=== PATIENT | female | born 1945 | race Caucasian/White ===

== ENCOUNTER 2020-09-22 03:33 | Outpatient (CLI) | payer MEDICARE, OTHER, SELFPAY ==
[2020-09-22] MEDS: Albuterol HFA 18 GM 200 PUFF INH IH (16:39)
[2020-09-22] MEDS: Inhaler, Assist Device 1 EACH MC (16:39)
--- NOTE | 2020-09-24 18:43 | W.PFT ---
Date of service: 09/22/20 Time of Service: 03:02 Pulmonary Function Test Result Interpretation Spirometry: Mild obstructive airways disease with significant bronchodilator response Lung Volumes: No evidence of restriction Diffusion Capacity: Severe diffusion defect which is moderate when corrected to alveolar volume Airway Pressure: Elevated Note: Mild obstructive airways disease with significant bronchodilator response, this is associated with severe diffusion defect Clinical Correlation therefore is recommended.
== END 2020-09-22 03:34 | disposition home or self-care (01) ==
PROVIDERS: PCP Nurse Practitioner; Visit Provider Nurse Practitioner
DX: J44.9 Chronic obstructive pulmonary disease, unspecified (principal); J98.4 Other disorders of lung; Z86.711 Personal history of pulmonary embolism; Z87.891 Personal history of nicotine dependence
CPT/HCPCS: 94060; 94726; 94729

== ENCOUNTER 2020-10-14 03:51 | Outpatient (CLI) | payer MEDICARE, OTHER, SELFPAY ==
[2020-10-14 13:49] LABS: ALT 16 U/L (14-59); AST 10 U/L (15-37); Albumin 3.8 g/dL (3.4-5.0); Alkaline Phosphatase 63 U/L (46-116); Anion Gap 8.8 mmol/L (3-11); BUN 18 mg/dL (7-18); Bilirubin, Total 0.5 mg/dL (0.2-1.0); CO2 27.2 mmol/L (21.0-32.0); CREATININE 1.1 mg/dL (0.55-1.02); Calcium 10.8 mg/dL (8.5-10.1); Chloride 105 mmol/L (98-107); Estimated GFR 48.42 (mL/min/1.73m2); Glucose 102 mg/dL (74-106); Hemoglobin A1C 4.9 % (<5.7); Potassium 4.6 mmol/L (3.5-5.1); Sodium 141 mmol/L (136-145); Total Protein 7.3 g/dL (6.4-8.2)
[2020-10-14 20:46] LABS: Calculated LDL 100 mg/dL (<100); Cholesterol 199 mg/dL (<200); HDL Cholesterol 78 mg/dL (40-60); Triglyceride 105 mg/dL (<150)
== END 2020-10-14 03:52 | disposition home or self-care (01) ==
LOC: LBO 03:51
PROVIDERS: PCP Nurse Practitioner; Visit Provider Nurse Practitioner
DX: I10 Essential (primary) hypertension (principal); E78.2 Mixed hyperlipidemia; R73.09 Other abnormal glucose
CPT/HCPCS: 36415; 80053; 80061; 83036

== ENCOUNTER 2021-09-16 04:19 | Outpatient (CLI) | payer OTHER, SELFPAY ==
[2021-09-16 14:58] LABS: HCT 44.8 % (36.0-46.0); HGB 15.3 g/dL (11.2-15.7); MCH 34.2 pg (27.0-33.0); MCHC 34.2 % (32.0-36.0); MCV 100 fL (80-95); MPV 9.2 fL (8.0-11.0); Platelet Count 301 10^3/uL (130-400); RBC 4.47 10^6/uL (3.93-5.22); RDW 12.3 % (11.7-14.6); RDW-SD 45.4 fL; WBC 7.71 10^3/uL (4.4-10.8)
== END 2021-09-16 04:20 | disposition home or self-care (01) ==
LOC: LBO 04:19
PROVIDERS: PCP Nurse Practitioner; Visit Provider Nurse Practitioner
DX: I48.0 Paroxysmal atrial fibrillation; G89.4 Chronic pain syndrome; M25.511 Pain in right shoulder; M54.17 Radiculopathy, lumbosacral region
CPT/HCPCS: 36415; 85027

== ENCOUNTER → 2021-09-20 01:46 | Outpatient (CLI) | payer OTHER, SELFPAY ==
--- NOTE | 2021-09-20 07:45 | DI.MRI_ITS ---
Exam(s) MR LUMBAR SPINE WO EXAM: MR LUMBAR SPINE WO CLINICAL HISTORY: referral to pain clinic, spinal stenosis, lumbosacral rad L5, low back pain. TECHNIQUE: Multiplanar multisequence MRI of the Lumbar spine was performed. COMPARISON: CR LUMBAR SPINE COMPLETE from 08/22/2017 FINDINGS: Bones: The last intervertebral disc space is designated the L5/S1 level for the numbering purpose of this examination. The vertebral body heights are well maintained. Alignment is satisfactory. There are endplate degenerative signal changes present. There also areas of hyperintense signal seen on ernesto th the T1 and T2 weighted images which may reflect fatty rests or hemangiomas within the vertebral ernesto dies. Cord: The conus tip ends at the T12 level. It is of normal size and signal intensity. T12-L1: No disc herniations or bulges are present. No central spinal canal or neural foraminal stenos is. L1-2: No disc herniations or bulges are present. No significant central spinal canal stenosis is seen . There is mild narrowing of the neural foramen bilaterally. L2-3: There is a diffuse disc bulge present. No significant central spinal canal stenosis is present . There is mild right and moderate left neural foraminal narrowing present. L3-4: There is a mild diffuse disc bulge. There are degenerative changes of the facets. Minimal hope rowing of the central spinal canal is noted.There is mild narrowing of the neural foramen bilaterally . L4-5: There is a mild diffuse disc bulge. There are hypertrophic changes of the facets and ligamentu m flavum. These all contribute to cause mild narrowing of the central spinal canal. No significant neural foraminal stenosis is present. L5-S1: There is a mild diffuse disc bulge. There are hypertrophic changes of the facets and ligament um flavum. There is mild narrowing of the central spinal canal present. There is mild narrowing of the neural foramen bilaterally. Soft tissues: The visualized SI joints and sacrum are well maintained. The paraspinal soft tissues ar e unremarkable. IMPRESSION: Multilevel degenerative changes in the lumbar spine resulting in central spinal canal and neural fora shantell stenosis as described above. DATA REPOSITORY:
== END ==
PROVIDERS: PCP Nurse Practitioner; Visit Provider Nurse Practitioner
DX: M54.59 Other low back pain (principal); M54.17 Radiculopathy, lumbosacral region; M48.061 Spinal stenosis, lumbar region without neurogenic claudication; G89.4 Chronic pain syndrome; M51.37 Other intervertebral disc degeneration, lumbosacral region
CPT/HCPCS: 72148

== ENCOUNTER → 2021-10-07 01:57 | Outpatient (CLI) | payer OTHER, SELFPAY ==
--- NOTE | 2021-10-07 07:45 | DI.MRI_ITS ---
Exam(s) MR LOWER JOINT RT WO EXAM: MR LOWER JOINT RT WO CLINICAL HISTORY: rt knee pain, internal derangement, m23.91,m25.361,patellar instability TECHNIQUE: Multiplanar multisequence MRI of the right knee was performed. COMPARISON: No plain films the right knee available at time this MRI interpretation FINDINGS: EFFUSION: Mild amount of increased joint fluid. No large joint effusion. No Garner cyst in the popli teal fossa. MARROW:There is no evidence of fracture, bone contusion, nor osteochondral defects.. There is a allison gn-appearing bone lesion in the metaphysis of the distal femur medial of center. This has appearance of benign enchondroma and measures approximately 1.5 cm x 1.0 cm. There is no surrounding bone june a suggest that this is an aggressive lesion. PATELLOFEMORAL COMPARTMENT: The quadriceps tendon is intact. The patellar ligament is intact. There is subcutaneous edema anterior to the but patella and patellar ligament. No organized fluid collect ion. There is moderate thinning of the retropatellar cartilage over the lateral facet. No osteochondral d efects. No degenerative subarticular cyst in the posterior patella.There is no intraosseous signal t o suggest recent patellar dislocation. There are no patellar retinacular tears. CRUCIATE LIGAMENTS: The anterior cruciate ligament is intact.The posterior cruciate ligament is intac t. MEDIAL COMPARTMENT/MEDIAL MENISCUS: There is tear of the posterior horn of the medial meniscus at and lateral to the root level. There is 2 millimeters outward extrusion of the posterior horn without g utter descent. No meniscocapsular separation.Anterior horn appears intact. Some there is some carti teja thinning over the medial condyle. No subarticular edema nor cysts nor evidence of osteochondral defect.. Tiny marginal osteophytes noted on both sides of the medial femoral condyle. MEDIAL COLLATERAL LIGAMENT: Intact LATERAL COMPARTMENT/LATERAL MENISCUS: There is no evidence of lateral meniscal tear.There are no geovanna dral defects, osteochondral defects, subarticular marrow edema, nor osteophytes evident. ILIOTIBIAL BAND: Intact LATERAL COLLATERAL LIGAMENT COMPLEX: The fibular collateral ligament is intact. The biceps femoris t endon is intact.Popliteus muscle and tendon are intact. IMPRESSION: 1. There is a tear of the posterior horn of the medial meniscus described above and there is mild ext rusion of the posterior horn. There is, however, no evidence of descent of meniscal tissue into the para tibial gutter. The anterior horn of the medial meniscus is intact. Cartilage changes over the medial condyle. No osteochondral defects. Small marginal osteophytes. No evidence of lateral menis odalys tear. 2. There is moderate thinning of the retropatellar cartilage over the lateral patellar facet. There is no abnormal intraosseous signal nor cysts within the posterior patella. No osteochondral defects at this level. 3. Cruciate and collateral ligaments are intact. 4. Small amount of increased joint fluid. No large joint effusion. DATA REPOSITORY:
== END ==
PROVIDERS: PCP Nurse Practitioner; Visit Provider Student in an Organized Health Care Education/Training Program
DX: M23.91 Unspecified internal derangement of right knee (principal); M25.361 Other instability, right knee; S83.241A Other tear of medial meniscus, current injury, right knee, initial encounter; X58.XXXA Exposure to other specified factors, initial encounter; Y99.8 Other external cause status; M25.761 Osteophyte, right knee
CPT/HCPCS: 73721

== ENCOUNTER 2021-10-07 13:59 | Emergency (ER) | payer OTHER, SELFPAY ==
[2021-10-07 14:03] VITALS: BP 164/77; PULSE 65; RESP 18; TEMP 36.6; O2SAT 95
--- OUTSIDE RECORDS SUMMARY | 2021-10-07 14:03 | XMS_ITS | Encounter Summary ---
:1945 Author Organization [facility] [place] [address] Care Team Providers Name Role Phone Eitan Nixon MD Primary Care Provider Encounter Details Date Type Department Care Team Description 12/12/2017 Telephone Ophthalmology at [facility] Aundrea Sanchez, [facility] [place] [address] Social History Tobacco Use Types Packs/Day Years Used Date Former Smoker Cigarettes Smokeless Tobacco: Never Used Comments: 2001 Alcohol Use Standard Drinks/Week Comments No 0 (1 standard drink = 0.6 oz pure alcoho l) Sex Assigned at Date Recorded Not on file documented as of this encounter Miscellaneous Notes Telephone Encounter - Iris Simmons - 12/12/2017 11:10 AM EDT Patient called and wanted you to know Zahira that she is sending you two pairs of glasses here to and she is sending them 2 day shipping, not sure when that mean they will actually arrive in the clinic but she wanted you to know so you can look out for them documented in this encounter Plan of Treatment Not on filedocumented as of this encounter Visit Diagnoses Not on filedocumented in this encounter Care Teams Shark Biologist Relationship Specialty Start Date End Date Eitan Nixon MD PCP - General Family Medicine 11/23/17 11/04/[address] [place] [address] documented as of this encounter
--- OUTSIDE RECORDS SUMMARY | 2021-10-07 14:03 | XMS_ITS | Encounter Summary ---
:1945 Author Organization [facility] [place] [address] Care Team Providers Name Role Phone Shania Mcknight BUSINESS SERVICES MANAGER Primary Care Provider Encounter Details Date Type Department Care Team Description 10/25/2016 Office Visit Ophthalmology at [facility] Cheli Sanchez, Vertical strabismus of right eye; [facility] [address] nerve palsy, [place] [address] Social History Tobacco Use Types Packs/Day Years Used Date Former Smoker Cigarettes Smokeless Tobacco: Never Used Comments: 2001 Alcohol Use Standard Drinks/Week Comments No 0 (1 standard drink = 0.6 oz pure alcoho l) Sex Assigned at Date Recorded Not on file documented as of this encounter Progress Notes Aundrea Sanchez CO - 10/25/2016 1:00 PM EDT Shannan Rowley is a 71 year old female with a 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 She is wearing prisms however Shannan does NOT have diplopia. It is important to note for future care and understanding; Fresnel prisms are worn to bring the right eye down. This improves the alignment and reduces the closing of the left eye. Plan: 1. Distance Rx Silvestre frame 8 BD Fresnel prism OD 2. Near Rx Green frame 7 BD Fresnel prism OD. Shannan will try the glasses, allowing time to get used to a 1 diopter increase at distance. She lives in [place] and would like to continue care here yearly with Dr. Herrera and myself. documented in this encounter Plan of Treatment Not on filedocumented as of this encounter Procedures Procedure Name Priority Date/Time Associated Diagnosis Comme nts SENSORIMOTOR EXAM Routine 10/25/2016 1:49 PM Vertical strabism us Results for this EDT of right eye procedure are in 4Th nerve palsy, the results unspecified section. laterality documented in this encounter Results SENSORIMOTOR EXAM [AR SPECIAL EYE EXAM] - OU- BOTH EYES (10/25/2016 1:49 PM EDT) Anatomical Region Laterality Modality Other Specimen (Source) Anatomical Location Collection Method / Collectio n Time Received Time / Laterality Volume Narrative 10/25/2016 1:49 PM EDT This result has an attachment that is no t available. See orthoptic note Yamileth Herrera OD OPHTHALMOLOGY SERVICES ORDER LASHAWN documented in this encounter Visit Diagnoses Diagnosis Vertical strabismus of right eye Hypertropia 4th nerve palsy, unspecified laterality documented in this encounter Care Teams Cvicu Nurse Relationship Specialty Start Date End Date Shania Mcknight APRN PCP - General Internal Medicine 12/28/15 11/22/17 [address] [place] [address] documented as of this encounter
--- OUTSIDE RECORDS SUMMARY | 2021-10-07 14:03 | XMS_ITS | Encounter Summary ---
:1945 Author Organization [facility] [place] [address] Care Team Providers Name Role Phone Eitan Nixon MD Primary Care Provider Encounter Details Date Type Department Care Team Description 10/24/2019 Hospital Encounter XRay at [facility] Jake Weems Right hip pain; [address] [facility] [address] Fercho MD History of total hip arthroplasty, right [facility] [id number] [address] [phone] [place] [address] Social History Tobacco Use Types Packs/Day Years Used Date Former Smoker Cigarettes Smokeless Tobacco: Never Used Comments: 2001 Alcohol Use Standard Drinks/Week Comments No 0 (1 standard drink = 0.6 oz pure alcoho l) Sex Assigned at Date Recorded Not on file documented as of this encounter Medications at Time of Discharge Medication Sig Dispensed Refills Start Date End Date pantoprazole (PROTONIX) 40 Take 40 mg by mouth 0 mg Tablet, Delayed Release daily. (E.C.)Indications: Lumbosacral radiculopathy at L5 metaxalone (SKELAXIN) 800 Take 800 mg by mouth 0 mg Tablet 3 times daily. aspirin 81 mg EC tablet Take 81 mg by mouth 0 daily. propranolol (INDERAL) 10 mg Take 10 mg by mouth 0 tablet 2 times daily. hydroCODone-acetaminophen Take 1 tablet by 0 (LORCET) 10-650 mg per mouth every 4 hours. tablet Amoxicillin 500 mg Tab 2000MG, PO, 4 tabs 0 12/22 prior to dental work documented as of this encounter Plan of Treatment Not on filedocumented as of this encounter Procedures Procedure Name Priority Date/Time Associated Diagnosis Comme nts XR PELVIS AND HIP 2 Routine 10/24/2019 1:49 PM Right hip pain Results for this VIEWS RIGHT EDT History of total hip procedu re are in arthroplasty, right the resu lts section. documented in this encounter Results XR Pelvis and Hip 2 Views Right (10/24/2019 1:49 PM EDT) Anatomical Region Laterality Modality Pelvis, Hip Right Digital Radiography Specimen (Source) Anatomical Location Collection Method / Collectio n Time Received Time / Laterality Volume Narrative 10/24/2019 3:17 PM EDT EXAMINATION: XR PELVIS AND HIP 2 VIEWS RIGHT CLINICAL HISTORY: Right Hip Pain/Right T SINGLET[place] DOS: 09/03/01 TECHNIQUE: 3 views of the pelvis and hips AP pelvis and 2 views of right hip. COMPARISON: Multiple examinations since December 21 FINDINGS: Bilateral total hip arthroplasties are p resent. The left hip is included only on one view. Right Alignment: The prosthesis is unchanged i n alignment. Is included only on the AP image. Impression Unchanged and Uncomplicated right total hip arthroplasty Thank you for letting us participate in the care of this patient. For questions regarding this report, please contact e number below. ? Procedure Note Edna Alonso MD - 10/24/2019Formatt ing of this note might be different from the original. EXAMINATION: XR PELVIS AND HIP 2 VIEWS R IGHT CLINICAL HISTORY: Right Hip Pain/Right T S[place]LET[place] DOS: 09/03/01 TECHNIQUE: 3 views of the pelvis and hips AP pelvis and 2 views of right hip. COMPARISON: Multiple examinations since December 21 FINDINGS: Bilateral total hip arthroplasties are p resent. The left hip is included only on one view. Right Alignment: The prosthesis is unchanged i n alignment. Is included only on the AP image. Impression Unchanged and Uncomplicated right total hip arthroplasty Thank you for letting us participate in the care of this patient. For questions regarding this report, please contact e number below. Jake Weems MD IMG DX ORDERABLES documented in this encounter Visit Diagnoses Diagnosis Right hip pain Pain in joint, pelvic region and thigh History of total hip arthroplasty, right documented in this encounter Care Teams Interventional Radiology Technologist Relationship Specialty Start Date End Date Eitan Nixon MD PCP - General Family Medicine 11/23/17 11/04/[address] [place] [address] documented as of this encounter
--- OUTSIDE RECORDS SUMMARY | 2021-10-07 14:03 | XMS_ITS | Encounter Summary ---
:1945 Author Organization [facility] [place] [address] Care Team Providers Name Role Phone Shania Mcknight APRN Primary Care Provider Reason for Visit Reason Comments Pain Management Consultation (Routine) - Closed Specialty Diagnoses / Procedures Referred By Contact Refer red To Contact Pain Management Diagnoses Lumbosacral radiculopathy at L5 [facility] MD [address] [place] [address] [place] [address] [place] [address] Fax: Referral ID Status Reason Start Date Expiration Date Visits V isits Requested Authorized [id number] Closed Consult, 09/27/2016 09/27/2017 1 1 Test & Treat Encounter Details Date Type Department Care Team Description 11/08/2016 Office Visit [facility] at [facility]opathy of lumbar region; Devon King MD DDD (degenerative disc disease), lumbar; [facility] Low back pain, non-specific [facility] [address] [place] [address] [place] [address] [phone] Social History Tobacco Use Types Packs/Day Years Used Date Former Smoker Cigarettes Smokeless Tobacco: Never Used Comments: 2001 Alcohol Use Standard Drinks/Week Comments No 0 (1 standard drink = 0.6 oz pure alcoho l) Sex Assigned at Date Recorded Not on file documented as of this encounter Last Filed Vital Signs Vital Sign Reading Time Taken Comments Blood Pressure 147/114 11/08/2016 1:42 PM EDT Pulse 93 11/08/2016 1:42 PM EDT Temperature - - Respiratory Rate - - Oxygen Saturation 99% 11/08/2016 1:42 PM EDT Inhaled Oxygen Concentration - - Weight 75.8 kg (167 lb) 11/08/2016 1:42 PM EDT Height 162.6 cm (5' 4) 11/08/2016 1:42 PM EDT Body Mass Index 28.67 11/08/2016 1:42 PM EDT documented in this encounter Progress Notes [facility] MD - 11/08/2016 2:00 PM EDT PAIN CLINIC CONSULTATION Date of Consultation: November 08, 2016 I am seeing Ms. Rowley at the request of Olive Jackson for my opinion and recommendations regarding low back pain with right radicular leg pain. Chief Complaint: low back pain with right radicular leg pain. HPI: Subjective Shannanjose juan Rowley is a 71 y.o. female maintained on opiate therapy for many years due to long standing low back pain pain who presents today for evaluation of low back pain with right radicular leg pain. LOCATION: Low back with radiation to the posterior right thigh into the lateral aspect of the right calf and dorsal surface of the right foot affecting the third fourth and fifth digits of the right foot. ONSET: She has experienced low back pain off and on for many years. However she noted in April [id number] when wintering in [place] she experienced acute onset of low back pain radiating into her right lower limb. She provides no inciting event or traumatic episode to explain onset of her pain. She describes bending over reaching for an object on the ground and experiencing significant pain in the intermediate fashion which has persisted since. ASSOCIATED SYMPTOMS: She reports associated symptoms of intermittent paresthesias in same distribution of the pain in the right lower limb. She reports weakness in her right leg as well since April 2016. She has noted decreased ability to ambulate due to her right leg weakness and is using crutches a s prophylaxis against falling. PAIN DESCRIPTION: She describes her pain as aching, sore, and at times burning in nature. In her ownwords, it's like a bad toothache. PRESENT: She experiences her pain daily although to varying degrees. PAIN INCREASED BY: Her pain is worse with bending twisting activities, driving for long distances, standing for long periods time, and cold damp weather changes. She describes 3 severe paroxysms in which her pain was uncontrolled. Again she reports no discernible movements are activities that coincidewith these pain flares. PAIN DECREASED BY: Interventional epidural steroid injections, and, nonsteroidal anti-inflammatories, hydrocodone-acetaminophen, and Skelaxin PAIN LEVEL: Presently: 4-5/10 At rest: At its worst: 10/10 At its best: 4/10 Average: 5/10 She is treating her pain with prior interventional procedures i.e. epidural steroid injections performed at a pain clinic in [place]. She last participated in physical therapy one month earlier. She has been participating in physical therapy consistently since July 2016 ay [facility]. She has had no prior back surgeries. She has undergone MRI imaging of the lumbar spine on 10/12/16 which showed at L4-5 degenerative disc disease with hypertrophic facet arthropathy and synovial cysts which may be causing right L4 nerve root impingement. She had EMG/NCS neurodiagnostic study on 09/30/16which was interpreted as consistent with right L5 radiculopathy. She has received terminal carman opiate therapy prior to worsening of her symptoms in April 2016 for ongoing long-standing low back pain. She currently uses hydrocodone-acetaminophen 10/325 mg every 6 hours as needed for pain 4 tabs per day. Additionally she uses tizanidine 4 mg every 8 hours as needed for muscle spasm. ACTIVITY LEVEL: Patient reports pain inhibition of function as decreasing ability to participate in leisure activity and certain activities of daily living including vacuuming, cleaning, and doing dishes. Patient reports quality of life adversely affected by daily experience pain. Treatment Goals: Maintain independence of activities of daily living Improved functional level without pain inhibition of function Decreased daily experiences pain Improve quality of life OPIOID RISK ASSESSMENT OPIOID RISK TOOL Female Male 1. Family history of Substance Abuse Alcohol [] 1 [] 3 Illegal Drugs [] 2 [] 3 Prescription Drugs [] 4 [] 4 2. Personal History of Substance Abuse Alcohol [] 3 [] 3 Illegal Drugs [] 4 [] 4 Prescription Drugs [] 5 [] 5 3. Age (chhaya box if 16-45) [] 1 [] 1 4. History of Preadolescent Sexual Abuse [] 3 [] 0 5. Psychological Disease Attention Deficit Disorder, Obsessive Compulsive D/o, Bipolar, Schizophrenia [] 2 [] 2 Depression [] 1 [] 1 TOTAL: 0 Opioid Risk Category: Low risk Total Score Risk Category: 0-3 = Low Risk 4-7 = Moderate Risk > 8 = High Risk Suicide/Homicide Risks Suicidal ideations No Suicidal plans No Homicidal ideations No Other significant history History of DUI or DWI? No History of incarceration? No History of discharge from another pain provider? No History of an inconsistent Urine Drug Screen? No Current use of a benzodiazepine? No Current use of other [employer] depressant? No Current diagnosis of Obstructive Seep Apnea? No CPAP use: No Repeated visits to acute care facilities of other care facilities seeking opioids? No Current ? No Repeated visits to urgent care facilities and/or emergency departments seeking opioids? No Evidence or risk of significant adverse events including falls or fractures? No Are you now or in past received methadone or suboxone (buprenorphine) from a clinic? No Ever participated in drug or alcohol rehabilitation program? No Share your pain medications or accept medications from family/friends? No OR & ID Prescription Drug Monitoring Program data reviewed? Yes Inconsistencies? No PAST MEDICAL HISTORY: Past Medical History: Diagnosis Date ??? Arthritis discs ??? Cardiac disease PAT ??? Cataract 09/17/2012 ??? Chronic pain ??? Hyperlipidemia 12/04/2014 ??? Neuromuscular disorder ??? Strabismus PAST SURGICAL HISTORY: Past Surgical History: Procedure Laterality Date ??? BREAST BIOPSY Right 2001 ??? PRO UNLISTED CRANIO/MAXILLOFACIAL SURG ??? PRO UNLISTED PROCEDURE, MUSCULOSKELETAL SYSTEM, GENERAL ALLERGIES: Celecoxib; Fentanyl; and Oxycodone-acetaminophen MEDICATIONS: Medications 11/08/16 1347 Medication Sig Taking? pantoprazole (PROTONIX) 40 mg Tablet, Delayed Release (E.C.) Take 40 mg by mouth daily. Yes metaxalone (SKELAXIN) 800 mg Tablet Take 800 mg by mouth 3 times daily. Yes aspirin 81 mg EC tablet Take 81 mg by mouth daily. Yes propranolol (INDERAL) 10 mg tablet Take 10 mg by mouth 2 times daily. Yes hydroCODone-acetaminophen (LORCET) 10-650 mg per tablet Take 1 tablet by mouth every 6 hours as needed. Yes Amoxicillin 500 mg Tab 2000MG, PO, 4 tabs prior to dental work Yes FAMILY HISTORY: Family History Problem Relation Age of Onset ??? Adopted: Yes ??? Family history unknown: Yes SOCIAL HISTORY: Social History Social History ??? Marital status: Single Spouse name: N/A ??? Number of children: N/A ??? Years of education: N/A Occupational History ??? Not on file. Social History Main Topics ??? Smoking status: Former Smoker Types: Cigarettes ??? Smokeless tobacco: Never Used Comment: 2002 ??? Alcohol use No ??? Drug use: No ??? Sexual activity: Not on file Other Topics Concern ??? Exercise: Patient Reported Yes ??? Abuse Or Threat: Physical, Sexual, Verbal No Social History Narrative Retired. Enjoys horses and reading. Style for [employer] standard poodle therapy dog named Roberta aggarwal 10-26-16. ROS: Review of Systems Constitutional: Positive for activity change. Negative for appetite change. Eyes: Negative for discharge and itching. Endocrine: Positive for heat intolerance. Negative for cold intolerance. Musculoskeletal: Positive for back pain and gait problem. Skin: Negative for color change and pallor. Allergic/Immunologic: Negative for environmental allergies and food allergies. Neurological: Positive for weakness (affecting the right lower limb new in onset since pain flare inJanuary 2017) and numbness. Negative for dizziness and facial asymmetry. Hematological: Negative for adenopathy. Does not bruise/bleed easily. Psychiatric/Behavioral: Negative for agitation and behavioral problems. PHYSICAL EXAM: BP (!) 147/114 Pulse 93 Ht 162.6 cm (5' 4) Wt 75.8 kg (167 lb) SpO2 99% BMI 28.67 kg/m2 Physical Exam Constitutional: She is oriented to person, place, and time. She appears well- developed and well-nourished. No distress. HENT: Head: Atraumatic. Eyes: Conjunctivae are normal. Pupils are equal, round, and reactive to light. Neck: Normal range of motion. Neck supple. Cardiovascular: Normal rate, regular rhythm and normal heart sounds. Pulmonary/Chest: Effort normal and breath sounds normal. No respiratory distress. Abdominal: Bowel sounds are normal. There is no tenderness. Neurological: She is alert and oriented to person, place, and time. She displays abnormal reflex (absent right patella relex, 1/4 left patella, trace bilateral achilles). No cranial nerve deficit. MSK: weakness on right ankle dorsiflexion 4/5 and to a lesser degree right ankle eversion 4+/5. Seated slump test positive for root tension sign on the right in the lumbar spine. Gait exam shows able to toe walk. Unable to heel walk. Able with difficulty to heal-toe walk secondary to poor balance on heal strike and stance phase of the right lower limb. RADIOLOGIC DATA: MRI lumbar spine 10/12/69 FINDINGS: Exaggerated lumbar lordosis with mild retrolisthesis of L1 with respect to L2 and L2 with respect to L3. The regional bone marrow is diffusely heterogeneous in signal. The vertebral body heights are maintained. 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 The conus is normal in signal and caliber, terminating at L1. Visualized retroperitoneal contents are unremarkable. ?? Findings at individual levels: ?? T11-T12: Small central disc extrusion with minimal cranial migration indents the ventral thecal sac appears to mildly deform the ventral conus. Right sided perineural cyst. ?? T12-L1: No canal or neural foraminal stenosis. ?? L1-L2: Retrolisthesis and posterior marginal osteophytes contribute to moderate right subarticular recess end mild to moderate right neural foraminal narrowing. No central canal narrowing ?? L2-L3: Disc bulge eccentric to the left and mild facet arthropathy. Moderate left and mild right subarticular recess narrowing. Mild to moderate right and moderate left neural foraminal narrowing. Minimal central canal narrowing. ?? L3-L4: Disc height loss with mild annular disc bulge and mild facet arthropathy contribute to mild canal narrowing. Mild to moderate bilateral neural foraminal narrowing. ?? L4-L5: Mild annular disc bulge and moderate facet arthropathy with buckling of ligamentum flavum contribute to mild to moderate central canal narrowing and moderate left and mild right subarticular recess narrowing. Mild to moderate right neural foraminal narrowing. Tiny right-sided synovial cyst within the right neural foramen may contact the exiting right L4 nerve root. Left-sided synovial cyst contributes to at least moderate left neural foraminal narrowing and possible left L4 nerve root impingement. ?? L5-S1: Minimal disc bulge and moderate facet arthropathy contribute to mild to moderate right and mild left subarticular recess narrowing. No central canal stenosis. Mild bilateral neural foraminal narrowing. Right-sided synovial cyst projects into the posterior paraspinal soft tissues. ?? IMPRESSION Multilevel degenerative change, most advanced at L4-5 where hypertrophic facet arthropathy and synovial cysts which could cause foraminal nerve root impingement. The right-sided cyst is small and may or may not be amenable to percutaneous rupture. ?? ASSESSMENT: Assessment 1. Radiculopathy of lumbar region 2. DDD (degenerative disc disease), lumbar 3. Low back pain, non-specific PLAN: Ms. Rowley is a pleasant 71 year old female who presents with sub-acute exacerbation of chronic low back pain which has recently involved a right L5 radicular pain pattern causing lateral thigh and lateral calf pain and dorsiflexion weakness in the right lower limb. She has MRI imaging which shows a potential right L4 nerve root impingement due to a combination of degenerative facet arthropathy and synovial cysyt. She has EMG/NCS evidence of right L5 radiculopathy. Her physical exam is consistent with weakness in the L4-5 myotome. I recommend she proceed with her scheduled right L4-5 and L5-S1 transforaminal epidural steroid injections performed under fluoroscopic guidance. Given her neurologic changes in her right lower limb which are concerning for axonetemis secondary to nerve root impingement, ifshe does not improve following her right L4-5 and L5-S1 transforaminal epidural steroid injection and her right lower limb weakness continues to evolve I feel it would be reasonable to pursue a surgical option. JESSICA Bowser Board Certified [employer] Developer documented in this encounter Plan of Treatment Scheduled Referrals Name Type Priority Associated Diagnoses Order S chedule Referral to Pain Outpatient Referral Routine Lumbosacral Orde red: Clinic radiculopathy at L5 09/28/19 17 documented as of this encounter Visit Diagnoses Diagnosis Radiculopathy of lumbar region Thoracic or lumbosacral neuritis or radi culitis, unspecified DDD (degenerative disc disease), lumbar Degeneration of lumbar or lumbosacral in tervertebral disc Low back pain, non-specific documented in this encounter Care Teams Enrober Tender Relationship Specialty Start Date End Date Shania Mcknight APRN PCP - General Internal Medicine 9/26/16 8/22/18 [address] [place] [address] documented as of this encounter
--- OUTSIDE RECORDS SUMMARY | 2021-10-07 14:03 | XMS_ITS | Encounter Summary ---
:1945 Author Organization [facility] [place] [address] Care Team Providers Name Role Phone Jenny Mcknightdia JAYLEN Primary Care Provider Reason for Referral Consultation (Routine) - Specialty Diagnoses / Procedures Referred By Contact Refer red To Contact Pain Management Diagnoses Intervertebral disc disorder with radiculopathy of lumbar region Request right L4-L5, L5-S1 TF CELY [facility] PA [facility] Procedures PRO INJ, FORAMEN, L/S, 1 [facility] [address] [place] [id number] [place] [address] Drive [place], [place] [phone] Phone: Fax: Referral ID Status Reason Start Date Expiration Date Visits V isits Requested Authorized [id number] Assume 10/19/2016 10/19/2017 1 1 Subset of Care Reason for Visit Reason Comments Back Pain mid back pain and low back p ain pain in buttock Consultation (Routine) - Closed Specialty Diagnoses / Procedures Referred By Contact Refer red To Contact Orthopaedics Diagnoses Lumbosacral radiculopathy at L5 Olive Jackson MD [facility] [place] [address] [place] [address] Referral ID Status Reason Start Date Expiration Date Visits V isits Requested Authorized [id number] Closed Consult, 09/27/2016 09/27/2017 1 1 Test & Treat Encounter Details Date Type Department Care Team Description 10/19/2016 Office Visit [facility] [place] ebral disc MELONIE Santana disorder with [facility] radiculop athy of lumbar [address] serjio [place], [place], [place] [id number] [phone] Social History Tobacco Use Types Packs/Day Years Used Date Former Smoker Cigarettes Smokeless Tobacco: Never Used Comments: 2001 Alcohol Use Standard Drinks/Week Comments No 0 (1 standard drink = 0.6 oz pure alcoho l) Sex Assigned at Date Recorded Not on file documented as of this encounter Progress Notes [facility] Toth PA - 10/19/2016 2:00 PM EDT SUBJECTIVE: Shannan Rowley is a 71-year-old female seen today for a chief complaint of over 6 months of back pain and right lower extremity pain. She reports the pains began around 04/2016 without specific injury/incident. The pain is generally over the midline low back, going into her right buttock, and further over the lateral thigh, at times going into the dorsal and plantar aspect of the right foot at the lateral aspect with some paresthesias involving the toes around this area as well. She otherwise denies any fixed motor loss or sensory weakness in her lower extremities. She does not really report any symptoms on the left side. She finds that symptoms ease somewhat when she is standing and walking for brief periods, otherwise she notes worsening symptoms with prolonged bending and sitting. Her review of systems is negative for GI, , constitutional symptoms. Her prior treatments included physical therapy greater than 8 weeks without much response, she has otherwise been taking several medications to control her pain, particularly hydrocodone- acetaminophen about four times per day, metaxalone 800 mg up to three times per day as well as aspirin. She appears to have some intolerance to the anti-inflammatories, particularly celecoxib. She does not report prior spine surgeries. She does have history of hip arthroplasty without much issue. She has been evaluated by Dr. Olive Jackson, with findings on EMG/NCV testing of a right L5 radiculopathy. She denies any tobacco or alcohol use. 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 OBJECTIVE: This is a pleasant, overweight, 71-year-old female appears her stated age and is in no acute distress. Her gait is antalgic with noted Trendelenburg gait. She is still able to toe walk and heel walk without much difficulty. Upon inspections from the back, she is tender to the c-spine and lower shoulders and pelvis. There is a well-healed lateral hip incision on both sides which are entirely nontender. Her motor examination is significant for 3/5 strength on the right EHL, and 4/5 strength on the left EHL, with the remainder of the lower extremity muscle groups being of normal strength. Sensory examination to light touch is intact throughout. Reflexes are +2 and symmetrical at both knees and both ankles. Negative straight leg raising bilaterally. There is no clonus or Babinski. Painless hip range of motion. Palpable peripheral pulses. MRI of the lumbar spine was reviewed today from 10/12/16, this shows several synovial cysts which impinges somewhat on the left L4 nerve root without any left lower extremity symptoms, and there is otherwise a synovial cysts around the posterior paraspinal musculature at the L5-S1 level. There is very minimal synovial cyst as well towards the right L4-L5 foramina which is entirely non-compressive and only minimally contacting the exiting nerve root. There is otherwise finding of some disc material overlying the right L5-S1 foramen but otherwise with patent right-sided neural foramina, and otherwise L4-L5 there is some spondylitic change with disc material contacting at the right L5 nerve root at the lateral recess. ASSESSMENT/PLAN: Shannan Rowley is a 71-year-old female seen today for a chief complaint of over 6 months of back pain and right lower extremity pain, with findings of EHL weakness and electrodiagnostic evidence of right L5 radiculopathy. Her symptoms have not really responsive so far through conservative management which has included oral medications and physical therapy. She has a slightly awkward gait which she is concerned about, which I advised her is most likely related to some degree of hip extension weakness with her L5 radiculopathy which is notable atypical. She does have understanding of this. We discussed further management options are present and Ms. Shannan Rowley is not really interested in surgery, and would instead like to consider further nonoperative options. I did discuss her case and imaging with one of our pain doctors, and Lincoln Mathis M.D., and plan will be for her to undergo right L4-L5 and right L5-S1 transforaminal epidural injections to target the L5 nerve root at these locations and hopefully make a difference with regards to her right leg pain symptoms. She knows to follow up with us in 1-2 weeks after the injection is performed. If the injection is not effective, then we may have to consider surgical consultation. documented in this encounter Plan of Treatment Scheduled Referrals Name Type Priority Associated Diagnoses Order S chedule Referral to Pain Outpatient Referral Routine Intervertebral di sc Ordered: Clinic disorder with 10/19/2016 radiculopathy of lumbar region documented as of this encounter Visit Diagnoses Diagnosis Intervertebral disc disorder with radicu lopathy of lumbar region Thoracic or lumbosacral neuritis or radi culitis, unspecified documented in this encounter Care Teams Title Clerk Automobile Relationship Specialty Start Date End Date Shania Mcknight APRN PCP - General Internal Medicine 12/28/15 11/22/17 [address] [place] [address] documented as of this encounter
--- OUTSIDE RECORDS SUMMARY | 2021-10-07 14:03 | XMS_ITS | Encounter Summary ---
:1945 Author Organization [facility] [place] [address] Care Team Providers Name Role Phone Lashell Reardon APRN Primary Care Provider [phone] Reason for Referral Diagnostic Test (Routine) - Closed Specialty Diagnoses / Procedures Referred By Contact Refer red To Contact Radiology Diagnoses Visit for screening mammogram Lashell Reardon APRN [facility] Rad Mammography Procedures Mammo Screening Cad and Titi Bilateral [address] [place] [address] [place], [place] [address] [place] [address] Phone: Referral ID Status Reason Start Date Expiration Date Visits V isits Requested Authorized [id number] Closed Specialty 11/05/2020 05/08/2022 1 1 Service Requested Reason for Visit Diagnostic Test (Routine) - Closed Specialty Diagnoses / Procedures Referred By Contact Refer red To Contact Radiology Diagnoses Visit for screening mammogram Lashell Reardon APRN [facility] Rad Mammography Procedures Mammo Screening Cad and Titi Bilateral [address] [place] [address] [place], [place] [address] [place] [address] Phone: Referral ID Status Reason Start Date Expiration Date Visits V isits Requested Authorized [id number] Closed Specialty 11/05/2020 05/08/2022 1 1 Service Requested Encounter Details Date Type Department Care Team Description 12/09/2020 [facility] L, GOLD PROSPECTOR mammogram [place] [address] [place] [address] [phone] Social History Tobacco Use Types Packs/Day Years [...] Name Priority Date/Time Associated Diagnosis Comme nts MAMMO SCREENING CAD Routine 12/09/2020 2:25 PM Visit for reina solomon Results for this AND TITI BILATERAL EDT mammogram procedure are in the results section. documented in this encounter Results Mammo Screening Cad and Titi Bilateral (12/09/2020 2:25 PM EDT) Anatomical Region Laterality Modality Breast Bilateral Mammography Specimen (Source) Anatomical Location Collection Method / Collectio n Time Received Time / Laterality Volume Narrative 12/09/2020 7:36 PM EDT BILATERAL MAMMOGRAPHY REASON FOR EXAM: Screening TECHNIQUE: CC and MLO views were obtaine d of each breast using standard 2-D mammography as well as 3-D tomosynth esis. Computer aided detection was used. This is compared with prior images . FINDINGS: ??The breasts are heterogeneou sly dense, which may obscure small masses. There are no suspicious microcal cifications, masses, or areas of distortion. The pattern is stable. CONCLUSION: No mammographic evidence of malignancy. RECOMMENDATION: Regular screening mammograms starting be tween age 40 and 50 reduces the risk of from breast cancer. All screening tests have both risks and benefits. These risks and benefits should be assessed for each individual p atient through discussion with their provider to determine their prefer red breast cancer screening schedule. Women should report any breast changes t o a health care provider right away. Some women, because of their family hist ory, a genetic tendency, or other factors, should be screened with annual breast MRI as well as with mammograms. (The number of women who fal l into this category is very small). Patients and health care provide rs should discuss each patient? s history to decide if earlier screening a nd/or breast MRI are appropriate. Screening should continue as long as a vel hector is in good health and is expected to live 10 years or longer. Screening mammography may not detect 10- 15% of breast cancers. A result letter has been sent to this pa tient by the [facility]. BIRADS CATEGORY 1: NEGATIVE Electronically signed by: MELISSA GARCIA MD Lashell Reardon APRN [facility]ine MAMMO ORDERABLES documented in this encounter Visit Diagnoses Diagnosis Visit for screening mammogram Other screening mammogram documented in this encounter Care Teams Inventory Control Analyst Relationship Specialty Start Date End Date Lashell Reardon APRN PCP - General Family Medicine 11/05/[address] [place] [address] [address] [facility] [address] [place] [address] documented as of this encounter
--- OUTSIDE RECORDS SUMMARY | 2021-10-07 14:03 | XMS_ITS | Encounter Summary ---
:1945 Author Organization [place] [address] Care Team Providers Name Role Phone Shania Mcknight APRN Primary Care Provider Encounter Details Date Type Department Care Team Description 08/16/2017 Interpretation Only [facility] Renetta Pappas, [address], [place] [address] [facility] [phone] [place], [place] [address] (Wo rk) Social History Tobacco Use Types Packs/Day Years Used Date Former Smoker Cigarettes Smokeless Tobacco: Never Used Comments: 2001 Alcohol Use Standard Drinks/Week Comments No 0 (1 standard drink = 0.6 oz pure alcoho l) Sex Assigned at Date Recorded Not on file documented as of this encounter Plan of Treatment Not on filedocumented as of this encounter Procedures Procedure Name Priority Date/Time Associated Diagnosis Comme nts MRI THORACIC SPINE Routine 08/16/2017 3:17 PM Res ults for this WITHOUT CONTRAST EDT procedure a re in the results section. documented in this encounter Results MRI Thoracic Spine wo Contrast (Generic) (08/16/2017 3:17 PM EDT) Anatomical Region Laterality Modality T-spine Magnetic Resonance Specimen (Source) Anatomical Collection Method Collection Time Re ceived Time Location / / Volume Laterality 08/16/2017 3:17 PM EDT Impressions 08/16/2017 5:27 PM EDT Cervical thoracic degenerative changes as above. No severe central canal stenosis or cord signal abnormality. Narrative 08/16/2017 5:27 PM EDT EXAMINATION: MR SPINE CERVICAL w/o, MR SPINE THORACIC w/o CLINICAL HISTORY: CERVICAL SPINAL CORD C OMPRESSION; DJD, ?? TECHNIQUE: MR of the cervical spine and MR of the thoracic spine performed without the use of intravenous contrast. COMPARISON: None FINDINGS: Cervical spine: Overall alignment is unr emarkable. There is no focal, aggressive appearing marrow lesion. Cervical cord s ignal is normal. Findings at specific levels: C2-C3: There is right worse left facet a rthropathy with mild right foraminal narrowing. No central canal stenosis. C3-C4: There is loss disc height. No nevaeh tral canal stenosis. Uncovertebral and facet arthropathy produce moderate left worse right foraminal narrowing. C4-C5: There is loss of disc height. Pos terior disc and osteophyte mildly indents the ventral thecal sac. Uncovert ebral and facet arthropathy produces severe left and moderate right foraminal narrowing. C5-C6: No central canal stenosis. There is mild bilateral foraminal narrowing due to facet arthropathy. C6-C7: No central canal or foraminal prince nosis. C7-T1: No central canal or foraminal prince nosis. Thoracic spine: There is somewhat exagge rated thoracic kyphosis. No focal aggressive marrow lesion. Thoracic cord signal is normal. A left-sided disc extrusion contacts and slightly alters t he contour the cord at T7-T8. There is a small left-sided disc extrusion at T8-T9 which contacts and slightly alters the ventral contour the cord. There is a sma ll disc extrusion at T11-T12. 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 Procedure Note Evangelist Waller MD - 08/16/2017Format ting of this note might be different from the original. EXAMINATION: MR SPINE CERVICAL w/o, MR S PINE THORACIC w/o CLINICAL HISTORY: CERVICAL SPINAL CORD C OMPRESSION; DJD, TECHNIQUE: MR of the cervical spine and MR of the thoracic spine performed without the use of intravenous contrast. COMPARISON: None FINDINGS: Cervical spine: Overall alignment is unr emarkable. There is no focal, aggressive appearing marrow lesion. Cervical cord s ignal is normal. Findings at specific levels: C2-C3: There is right worse left facet a rthropathy with mild right foraminal narrowing. No central canal stenosis. C3-C4: There is loss disc height. No nevaeh tral canal stenosis. Uncovertebral and facet arthropathy produce moderate left worse right foraminal narrowing. C4-C5: There is loss of disc height. Pos terior disc and osteophyte mildly indents the ventral thecal sac. Uncovert ebral and facet arthropathy produces severe left and moderate right foraminal narrowing. C5-C6: No central canal stenosis. There is mild bilateral foraminal narrowing due to facet arthropathy. C6-C7: No central canal or foraminal prince nosis. C7-T1: No central canal or foraminal prince nosis. Thoracic spine: There is somewhat exagge rated thoracic kyphosis. No focal aggressive marrow lesion. Thoracic cord signal is normal. A left-sided disc extrusion contacts and slightly alters t he contour the cord at T7-T8. There is a small left-sided disc extrusion at T8-T9 which contacts and slightly alters the ventral contour the cord. There is a sma ll disc extrusion at T11-T12. 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 IMPRESSION Cervical thoracic degenerative changes a s above. No severe central canal stenosis or cord signal abnormality. Renetta Pappas MD IMG MRI ORDERABLES documented in this encounter Visit Diagnoses Not on filedocumented in this encounter Care Teams Finance Analyst Relationship Specialty Start Date End Date Shania Mcknight APRN PCP - General Internal Medicine 12/28/15 11/22/17 [address] [place] [address] documented as of this encounter
--- OUTSIDE RECORDS SUMMARY | 2021-10-07 14:03 | XMS_ITS | Encounter Summary ---
:1945 Author Organization [facility] [place] [address] Care Team Providers Name Role Phone Shania Mcknight APRN Primary Care Provider Encounter Details Date Type Department Care Team Description 11/17/2016 Telephone Pain Management at [facility] [address] Social History Tobacco Use Types Packs/Day Years Used Date Former Smoker Cigarettes Smokeless Tobacco: Never Used Comments: 2001 Alcohol Use Standard Drinks/Week Comments No 0 (1 standard drink = 0.6 oz pure alcoho l) Sex Assigned at Date Recorded Not on file documented as of this encounter Miscellaneous Notes Telephone Encounter - Nickie Loya LNA - 11/17/2016 10:52 AM EDT Shannan Rowley :1945 Message left: I left a message on answering machine Ms. Rowley at 10:52 AM regarding her upcoming Right transforaminal injection with Dr. Lowell Rabago MD. Message included the followin. Patient instructed to arrive at 9:30 (30 minutes prior to procedure start time) on 11/18/16 (date of procedure) with their electric pile driver operator. 2. Following instructions left in the message: - Bring Updated list of medications including dosage and reason for taking. - Call the Pain Clinic Nurse at for: ~Procedure instructions. ~If you are taking antibiotics. ~If you have any signs or symptoms of infection, cold or flu. ~If you have any skin breakdown (rashes, cysts, or abscess.) ~If you are taking anticoagulants / blood thinners (Plavix, Pletal, Lovenox, Coumadin, etc). ~If you had any steroid injections anywhere in your body within the last two weeks? documented in this encounter Plan of Treatment Not on filedocumented as of this encounter Visit Diagnoses Not on filedocumented in this encounter Care Teams Fork Operator Relationship Specialty Start Date End Date Shania Mcknight APRN PCP - General Internal Medicine 12/28/15 11/22/17 [address] [place] [address] documented as of this encounter
--- OUTSIDE RECORDS SUMMARY | 2021-10-07 14:03 | XMS_ITS | Encounter Summary ---
:1945 Author Organization [facility] [place] [address] Care Team Providers Name Role Phone Eitan Nixon MD Primary Care Provider Reason for Visit Reason Onset Date Comments Bumped Appointment 11/01/2017 Encounter Details Date Type Department Care Team Description 11/01/2017 Telephone Ophthalmology [facility] Maxine Winn, [place] Appointment [facility] [place] [address] [facility] [phone] OPHTHALMOLOGY DE PT [place], [place] [address] (Wo rk) Social History Tobacco Use Types Packs/Day Years Used Date Former Smoker Cigarettes Smokeless Tobacco: Never Used Comments: 2001 Alcohol Use Standard Drinks/Week Comments No 0 (1 standard drink = 0.6 oz pure alcoho l) Sex Assigned at Date Recorded Not on file documented as of this encounter Miscellaneous Notes Telephone Encounter - Geni Xie - 11/03/2017 11:08 AM EDT Called to confirm BMP appt new date & time with Pa on 11/23/17 @ 1:00 Zahira spring SS @ 2PM. Asking pt to call confirm. Telephone Encounter - Geni Xie - 11/01/2017 4:22 PM EDT BMP 11/02/17 Pa appt, and CAN per pt appt with Zahira (prism chk) same day. We call pt back to [facility] both appts. documented in this encounter Plan of Treatment Not on filedocumented as of this encounter Visit Diagnoses Not on filedocumented in this encounter Care Teams Executor Of Estate Relationship Specialty Start Date End Date Eitan Nixon MD PCP - General Family Medicine 11/23/17 11/04/[address] [place] [address] documented as of this encounter
--- OUTSIDE RECORDS SUMMARY | 2021-10-07 14:03 | XMS_ITS | Encounter Summary ---
:1945 Author Organization [facility] [address] Care Team Providers Name Role Phone Shania Mcknight APRN Primary Care Provider Reason for Visit Reason Comments Follow-up Back Pain Encounter Details Date Type Department Care Team Description 11/30/2016 [facility] Visit [facility] Radiculop athy of lumbar region; MELONIE Santana Spondylolisthesis at L4-L5 level [facility] [address], [place] [address] [phone] Social History Tobacco Use Types Packs/Day Years Used Date Former Smoker Cigarettes Smokeless Tobacco: Never Used Comments: 2001 Alcohol Use Standard Drinks/Week Comments No 0 (1 standard drink = 0.6 oz pure alcoho l) Sex Assigned at Date Recorded Not on file documented as of this encounter Progress Notes [facility] PA - 11/30/2016 1:00 PM EDT Subjective: Shannan Rowley is a 71-year-old female seen today for continued symptoms of back pain andright lower extremity pain. She mentions having had limited response to her epidural steroidal injection directed towards the right L4-L5, right L5-S1. She finds the leg pain has been improving, reporting about 4/10 pain today but notes that her greater concern now is her mobility being affected, suchthat she is not really able to walk or stand, or the upright activity for prolonged periods of time.She still transitions between using a cane on her left hand side as well as a walker for assistance.Details of her history otherwise unchanged more prior visit. Objective: Focused neurological examination was performed today. Motor and sensory examination are entirely intact. Reflexes are symmetric at both knees and both ankles. Plain x-rays of the lumbar spine performed today with AP, lateral flexion extension views was reviewed. This appears to show some degree of dynamic instability, given increasing degree of anterior translation L4 and L5 which is increased in flexion, and reduces in extension. This appears to represent d egenerative spondylolisthesis L4-L5, and responsive to her prior MRI of the lumbar spine which was predominantly mild to moderate central canal and predominantly lateral recess narrowing L4-L5. MRI of the lumbar spine was also reviewed once more, she does show some degree of foraminal stenosis at L5-S1. Assessment/plan: Shannan Rowley is a 71-year-old female seen today for continued symptoms of back pain and right lower extremity pain and progressive over the past 6-7 months. Her imaging with dynamic views was reviewed above is most significant for evidence of L4-L5 degenerative spondylolisthesis, with resulting spinal stenosis, likely accounting for her walking difficulties which may represent claudication symptoms. She has had limited response so far to physical therapy, injection therapies, oral medications, and assistive devices. I discussed her case and imaging with one of our spine surgeons, Jl Buenrostro M.D. I discussed with Ms. Rowley her options to be pursue surgical consultation, and this may most likely involve instrumented fusion L4-L5. Per my discussion with Dr. Buenrostro, DEXA scan is indicated prior tothis for preoperative planning given likely underlying degree of senile osteoporosis, if one has notbeen done recently within the past 2 years with her primary care provider. I discussed with her the alternative of considering further conservative management, physical therapy, and consideration of our multidisciplinary intensive rehabilitation program. A voicemail message informing her to call our office back was left, and she will be informed furtherregarding these details once she returns her follow-up phone call. documented in this encounter Plan of Treatment Not on filedocumented as of this encounter Results XR Lumbar Spine AP & Flexion & Extension Only (11/30/2016 1:51 PM EDT) Anatomical Region Laterality Modality L-spine N/A Digital Radiography Specimen (Source) Anatomical Location Collection Method / Collectio n Time Received Time / Laterality Volume Impressions 11/30/2016 2:45 PM EDT No severe lumbar vertebral body compression fracture. Grade 1 L4-L5 anterolisthesis is seen on flexion and r esolved on extension Narrative 11/30/2016 2:45 PM EDT EXAMINATION: XR LUMBAR SPINE AP AND FLEXION AND EXTENSION ONLY CLINICAL HISTORY: Request AP, lateral fl exion/extension views TECHNIQUE: AP, lateral flexion and extension COMPARISON: MR Lumbar 10/12/2016 FINDINGS: Grade 1 anterolisthesis seen on flexion views at L4-L5 is resolved with extension views. On flexion view there i s advanced L1-L2 space narrowing with endplate sclerosis and disc osteophyte c omplex. Slightly relieved with extension. Moderate disc space narrowing and osteop hytosis at L2-3 which is slightly opened on extension. Mild L3-L4 disc space narr owing. Multilevel facet arthropathy. No appreciable scoliosis on AP. Procedure Note Yvonne Abel MD - 11/30/2016Formatti ng of this note might be different from the original. EXAMINATION: XR LUMBAR SPINE AP AND FLEX ION AND EXTENSION ONLY CLINICAL HISTORY: Request AP, lateral fl exion/extension views TECHNIQUE: AP, lateral flexion and extension COMPARISON: MR Lumbar 10/12/2016 FINDINGS: Grade 1 anterolisthesis seen on flexion views at L4-L5 is resolved with extension views. On flexion view there i s advanced L1-L2 space narrowing with endplate sclerosis and disc osteophyte c omplex. Slightly relieved with extension. Moderate disc space narrowing and osteop hytosis at L2-3 which is slightly opened on extension. Mild L3-L4 disc space narr owing. Multilevel facet arthropathy. No appreciable scoliosis on AP. IMPRESSION No severe lumbar vertebral body compress ion fracture. Grade 1 L4-L5 anterolisthesis is seen on flexion and r esolved on extension Randy Montes MD IMG DX ORDERABLES documented in this encounter Visit Diagnoses Diagnosis Radiculopathy of lumbar region Thoracic or lumbosacral neuritis or radi culitis, unspecified Spondylolisthesis at L4-L5 level Radiculopathy of lumbar region Thoracic or lumbosacral neuritis or radi culitis, unspecified documented in this encounter Care Teams Public Works Commissioner Relationship Specialty Start Date End Date Shania Mcknight APRN PCP - General Internal Medicine 12/28/15 11/22/17 [address] [place] [address] documented as of this encounter
--- OUTSIDE RECORDS SUMMARY | 2021-10-07 14:03 | XMS_ITS | Encounter Summary ---
:1945 Author Organization [place] [address] Care Team Providers Name Role Phone Shania Mcknight APRN Primary Care Provider Reason for Referral Surgical (Routine) - Specialty Diagnoses / Procedures Referred By Contact Refer red To Contact Diagnoses Sciatica of right side Teena Hughes MD Procedures TRANSFORAMINAL INJECTION [facility] [place] [address] Referral ID Status Reason Start Date Expiration Date Visits V isits Requested Authorized [id number] Consult, 11/18/2016 11/18/2017 1 1 Test & Treat Reason for Visit Reason Comments Back Pain Buttock Pain Consultation (Routine) - Specialty Diagnoses / Procedures Referred By Contact Refer red To Contact Pain Management Diagnoses Intervertebral disc disorder with radiculopathy of lumbar region Request right L4-L5, L5-S1 TF CELY Ermias Toth PA [facility] Procedures PRO INJ, FORAMEN, L/S, [address] [facility] [place] [address] [facility] [address] [place], [place] [address] Phone: Fax: Referral ID Status Reason Start Date Expiration Date Visits V isits Requested Authorized [id number] Assume 10/19/2016 10/19/2017 1 1 Subset of Care Encounter Details Date Type Department Care Team Description 11/18/2016 Procedure visit Pain Management at [facility] S ciatica of right [facility] MD side [facility] [address] [place] PAIN MANAGEMENT [address] [place] [address] [phone] Social History Tobacco Use Types Packs/Day Years Used Date Former Smoker Cigarettes Smokeless Tobacco: Never Used Comments: 2001 Alcohol Use Standard Drinks/Week Comments No 0 (1 standard drink = 0.6 oz pure alcoho l) Sex Assigned at Date Recorded Not on file documented as of this encounter Last Filed Vital Signs Vital Sign Reading Time Taken Comments Blood Pressure 145/92 11/18/2016 10:53 AM EDT Pulse 71 11/18/2016 10:53 AM EDT Temperature - - Respiratory Rate - - Oxygen Saturation 97% 11/18/2016 10:53 AM EDT Inhaled Oxygen Concentration - - Weight 74.8 kg (165 lb) 11/18/2016 10:10 AM EDT Height 162.6 cm (5' 4) 11/18/2016 10:10 AM EDT Body Mass Index 28.32 11/18/2016 10:10 AM EDT documented in this encounter Patient Instructions Patient InstructionsGaLuba nuñez LPN - 11/18/2016 10:00 AM EDT Pain Management Center Discharge Instructions: You were seen by Dr. Lowell Rabago MD and Teena Hughes MD who performed right transforaminal injection at L4-L5, L5-S1. It is normal that the injection site will be sore for up to 48 hours. You may also experience mild stiffness in the joint near the injection site. [x] You may resume your normal activities: tomorrow. You may shower today. DO NOT tub bathe, use whirlpools, hot tubs or pool therapy for 2 days. Remove Band-Aid(s) later today/tomorrow. Do not drive until tomorrow. Use caution walking/climbing stairs as you may be unsteady on your feet. You may use your usual medications, including pain medications, as directed, unless otherwise instructed. You may use an ice pack as needed for the first 24 hours, on for 20 minutes then off for 20 minutes.Do not apply heat today. Attempt to empty your bladder 4-6 hours after your procedure. You received the following medications: Lidocaine, Omnipaque (contrast dye) and Dexamethasone SodiumPhosphate 20 mg. (10mg Dexamethasone in each site) During regular business hours, please phone the Pain Management Center at with any questions or if the following or other troubling symptoms develop: 1) Prolonged dizziness or weakness (more than 1 day). 2) Localized swelling, redness or drainage at the injection site(s). 3) Temperature of 101 degrees that lasts for more than 4 hours. After 5 PM or on weekends, call and ask for Pain Clinic provider on-call. If you are unable to reach the Pain Management Center and have a complication, please call your Primary Care Provider or proceed to your local emergency department. Luba Beavers LPN Special instructions documented in this encounter Progress Notes Luba Beavers LPN - 11/18/2016 10:00 AM EDT Pre-Procedure Screening Questions: 1. Status: No 2. Patient states they have a driver/merchandiser to transport after procedure? Yes 3. Patient taking antibiotics at present? No 4. NPO per Pain Management Center protocol? No 5. Patient diabetic: No 6. Patient routinely taking anticoagulants ? No Patient Vital Signs documented in Doc Flowsheets associated with this encounter. Patient Discharge Instructions were reviewed with patient and copy provided to patient. documented in this encounter Procedure Notes Teena Hughes MD - 11/18/2016 10:00 AM EDTAssociated Order(s): TRANSFORAMINAL INJECTION Procedure(s): TRANSFORAMINAL INJECTION Pre-Procedure Diagnose(s): Sciatica of right side PROCEDURE NOTE Transforaminal Epidural Steroid Injection with Fluoroscopic Guidance at right L4-L5 and L5-S1 Chief Complaint: right leg pain. Shannan Rowley has been referred to the Pain Management Center for Lumbar Transforaminal Epidural Steroid Injection right L5-S1 COMMENTS: Referring provider: Dr. Toth Allergies: Allergies Allergen Reactions ??? Celecoxib Rash Rash ??? Fentanyl Nausea And Vomiting Nausea/Vomiting ??? Oxycodone-Acetaminophen Nausea And Vomiting Nausea/Vomiting Pre-procedure VAS: 8/10 to the right leg. Follow up plan: See Dr. Mathis or Spine Center Shannan Nina Rowley was greeted by the nurse who verified patients name and . Patient was then taken tothe fluoroscopy suite. Ms. Rowley was interviewed and the medical record reviewed. There were no medical, pharmacologic, radiographic or other structural contraindications to attempting fluoroscopically guided transforaminal lumbar epidural steroid injection. The risks, benefits, and potential side effects were reviewed with the patient. Risk include, but not limited to, post dural puncture, headache, infection, nerve injury, allergic reaction, possible increase in symptoms over the ensuing 24 to 48 hours, and paralysis. The patient appeared to understand, questions were answered and the patient agreed to proceed. Once I obtained informed verbal consent, the printed consent form was signed by the patient and myself. Standard time-out procedure was performed. TECHNIQUE: After informed written consent was obtained the patient was placed in the prone position. The lumbar spine spine was prepped with chloraprep and draped. Sterile technique was observed during the entire procedure ( cap, gloves, and mask were worn). Vitals signs were monitored throughout the procedure. The right side was marked with a radioopaque marker. The skin and subcutaneous structureswere anesthetized with lidocaine 1% to a total volume of 3 ML at each level. Under fluoroscopic guidance, in ipsilateral oblique view, co-axial approach, 22 gauge 3.5 inch spinal need was advanced to the base of the L-4 and L-5. pedicle(s). The needle(s) were advanced to the superio-posterior aspect of the neural foramen under lateral view. Oblique and AP views were rechecked.Under AP view Omnipaque 240 1.5 cc's was injected while visualized with fluoroscopy. There was no evidence of intravascular uptake, the epidural space was delineated. A total of 20 mg Dexamethasone wasinjected after negative aspiration into divided doses of the two levels, with a larger aliquot at L4-L5. Outcome: The patient tolerated the procedure well and had stable vital signs. Follow up plans and appointments were discussed with Ms. Rowley. The patient was observed in the pain clinic and then discharged after having met discharge criteria to the care of a driver/merchandiser. The patient received written instructions as documented in nursing records. Disposition: Ms. Rowley was discharged from the procedure suite without new neurological complaints. Follow-up: Follow up with Dr. Toth as scheduled or PRN. Teena Hughes MD I was the attending physician supervising the fellow in the above care and I was present with the fellow for the entire procedure. Lowell Rabago MD, MS Clinical Selling Underwriter of Anesthesiology [facility] [address] [address] / [facility] CC: MELONIE Peters [facility] [place] [address] documented in this encounter Plan of Treatment Not on filedocumented as of this encounter Procedures Procedure Name Priority Date/Time Associated Comments Diagnosis TRANSFORAMINAL Routine 11/21/2016 6:43 PM Sciatica of right Re sults for this INJECTION EDT side procedure are i n the results section. documented in this encounter Results TRANSFORAMINAL INJECTION (11/21/2016 6:43 PM EDT) Narrative Lowell Rabago MD - 11/21/2016 6:43 P M EDT Lowell Rabago MD ? 11/21/2016 ??6:43 PM PROCEDURE NOTE Transforaminal Epidural Steroid Injectio n with Fluoroscopic Guidance at right L4-L5 and L5-S1 Chief Complaint: right leg pain. ?? Shannan Rowley has been referred to the [facility] for Lumbar Transforaminal Epidural Steroid I njection ??right L5-S1 COMMENTS: Referring provider: Dr. Toth Allergies: Allergies Allergen Reactions ? ? Celecoxib Rash ?? Rash ? ? Fentanyl Nausea And Vomiting ?? Nausea/Vomiting ? ? Oxycodone-Acetaminophen Nausea And Vomiting ??Nausea/Vomiting Pre-procedure VAS: 8/10 to the right leg . Follow up plan: See Dr. Mathis or Spine Center Shannan Nina Rowley was greeted by the nurse vel tristan verified patients name and . ??Patient was then taken to the fluoroscopy suite. Ms. Rowley was interviewed and the medical record reviewed. ??There were no medical, pharmacologic, radiogra phic or other structural contraindications to attempting fluorosc opically guided transforaminal lumbar epidural steroid i njection. ??The risks, benefits, and potential side effects wer e reviewed with the patient. ??Risk include, but not limited to, post dural puncture, headache, infection, nerve injury, aller gic reaction, possible increase in symptoms over the ensuing 24 to 48 hours, and paralysis. ??The patient appeared to und erstand, ??questions were answered and the patient agreed to proce ed. ??Once I obtained informed verbal consent, the printed con sent form was signed by the patient and myself. Standard time-ou t procedure was performed. TECHNIQUE: ??After informed written con sent was obtained the patient was placed in the prone position . ??The lumbar spine spine was prepped with chloraprep and draped. ??Sterile technique was observed during the entire procedure ( c ap, gloves, and mask were worn). Vitals signs were monitored throu ghout the procedure. ??The right side was marked with a radioopaque marker. ??The skin and subcutaneous structures were anesthetize d with lidocaine 1% to a total volume of 3 ??ML at each level. Under fluoroscopic guidance, in ipsilate ral oblique view, co-axial approach, ??22 gauge 3.5 inch s steve need was advanced to the base of the L-4 and L-5. ?? pedicle( s). ??The needle(s) were advanced to the superio-posterior aspect of the neural foramen under lateral view. ??Oblique and AP vie ws were rechecked. ?? Under AP view Omnipaque 240 ??1.5 cc's was inj ected while visualized with fluoroscopy. ?? There was no eviden ce of intravascular uptake, the epidural space was delineate d. ??A total of 20 mg Dexamethasone was injected after negativ e aspiration into divided doses of the two levels, with a larger a liquot at L4-L5. Outcome: The patient tolerated the proce dure well and had stable vital signs. ?? Follow up plans and appointments were di scussed with Ms. Rowley. The patient was observed in the pain cli janett and then discharged after having met discharge criteria ??to the care of a driver/merchandiser. ?? The patient received written instruction s as documented in nursing records. ?? Disposition: ??Ms. Rowley was discharged f rom the procedure suite without new neurological complaints. Follow-up: Follow up with Dr. Toth as scheduled or PRN. Teena Hughes MD I was the attending physician supervisin g the fellow in the above care and I was present with the fellow f or the entire procedure. Lowell Rabago MD, MS Clinical Selling Underwriter of Anesthes iology [facility] [address] [address] / Fax: [phone] [place] [address].[facility] CC: MELONIE Peters [facility] [place] [address] Lowell Rabago MD PROCEDURE/MINOR SURGICAL ORD ERABLES documented in this encounter Visit Diagnoses Diagnosis Sciatica of right side Sciatica documented in this encounter Administered Medications Inactive Administered Medications - up to 3 most recent administrations Medication Order MAR Action Action Date Dose Rate Site dexamethasone(PF) (DECADRON) 10 Given 11/18/2016 11:30 AM EDT 8 mg mg/mL injection 8 mg 8 mg, Epidural, ONCE, 1 dose, On Mon11/18/16 at 1130, Wasted 2mg, Routine iohexol (OMNIPAQUE) 240 mg/mL solution 2 mL Given 11/18/2016 11:30 AM EDT 2 mLs 2 mL, Epidural, ONCE, 1 dose, On Mon11/18/16 at 1130, Wasted 48 ml, Routine documented in this encounter Care Teams Die Mechanic Relationship Specialty Start Date End Date Shania Mcknight APRN PCP - General Internal Medicine 12/28/15 11/22/17 [address] [place] [address] documented as of this encounter
--- OUTSIDE RECORDS SUMMARY | 2021-10-07 14:03 | XMS_ITS | Encounter Summary ---
:1945 Author Organization [facility] [address] Care Team Providers Name Role Phone Shania Mcknight FIRE EXTINGUISHER INSPECTOR Primary Care Provider Encounter Details Date Type Department Care Team Description 08/16/2017 Interpretation Only Mar[facility] Renetta Pappas, [address], [place] [address] [facility] [phone] [place], [place] [address] (Wo rk) Social History Tobacco [...] Priority Date/Time Associated Diagnosis Comme nts MRI LUMBAR SPINE Routine 08/16/2017 11:23 AM Resu lts for this WITHOUT CONTRAST EDT procedure a re in the results section. documented in this encounter Results MRI Lumbar Spine wo Contrast (Generic) (08/16/2017 11:23 AM EDT) Anatomical Region Laterality Modality L-spine Magnetic Resonance Specimen (Source) Anatomical Collection Method Collection Time Re ceived Time Location / / Volume Laterality 08/16/2017 11:23 AM EDT Impressions 08/16/2017 3:26 PM EDT Impression: Multilevel lumbar spine degenerative changes. Compared to the prior study, the facet synovial cyst at L4-L5 are no longer identified. Findings at other levels are similar to the previous study. Comment: The Following Findings Are So C ommon In People Without Low Back Pain That While We Report Their Presence, The y Must Be Interpreted With Caution And In Context Of The Clinical Situation (Re jose Gann Et Al, Spine 2001). Findings: (Prevalence In Patients Withou t Low Back Pain), Disc Degeneration (Decreased T2 Signal, Height Loss, Bulge ) (91%), Disc T2-Signal Loss (83%), Disc Height Loss (56%), Disc Bulge (64%), Dis c Protrusion (32%), Annular Fissure (38%). Narrative 08/16/2017 3:26 PM EDT Examination: MR SPINE LUMBAR w/o Clinical History: RLE PAIN; LUMBAR SPOND YLOSIS; LOW BACK PAIN, ?? Technique: MR of the lumbar spine perfor med without the use of intravenous contrast. Comparison: 10/12/2016 Findings: There is slight retrolisthesis of L1 on L2, and L2 on L3. The alignment is not changed compared to the prior study. There is no focal, aggressive appearing marrow lesion. Dege nerative endplate signal changes present at L2-L3. The normal appearing conus ter minates at L1. Visualized retroperitoneal structures are unremarka ble. Findings at specific levels: L1-L2: There is loss of disc height. A r ight foraminal lateral disc protrusion and endplate osteophyte contribute to mi ld right foraminal narrowing. Mild overall central canal narrowing. Finding s at the skull are unchanged. L2-L3: There is loss disc height. Disc b ulge, endplate osteophyte, and facet arthropathy contribute to mild bilateral foraminal narrowing slightly worse on the right on the left. There is mild ove rall central canal narrowing, and left first and subarticular recess narrowing. These findings are substantially changed compared to the prior study. L3-L4: Disc bulge and facet arthropathy contribute to mild foraminal narrowing. There is minimal central canal narrowing . Findings are similar to the prior study. L4-L5: Disc bulge, facet arthropathy, an d redundancy of ligamentum flavum contributes to [id number] central canal narrowing. There is mild bilateral foraminal narrowing. Compared to the shruthi or study the foraminal synovial cysts no longer present. L5-S1: There is fairly extensive bilater al facet arthropathy with unchanged mild bilateral foraminal narrowing. The degre e of narrowing of the subarticular recess is unchanged. Procedure Note Evangelist Waller MD - 08/16/2017Format ting of this note might be different from the original. Examination: MR SPINE LUMBAR w/o Clinical History: RLE PAIN; LUMBAR SPOND YLOSIS; LOW BACK PAIN, Technique: MR of the lumbar spine perfor med without the use of intravenous contrast. Comparison: 10/12/2016 Findings: There is slight retrolisthesis of L1 on L2, and L2 on L3. The alignment is not changed compared to the prior study. There is no focal, aggressive appearing marrow lesion. Dege nerative endplate signal changes present at L2-L3. The normal appearing conus ter minates at L1. Visualized retroperitoneal structures are unremarka ble. Findings at specific levels: L1-L2: There is loss of disc height. A r ight foraminal lateral disc protrusion and endplate osteophyte contribute to mi ld right foraminal narrowing. Mild overall central canal narrowing. Finding s at the skull are unchanged. L2-L3: There is loss disc height. Disc b ulge, endplate osteophyte, and facet arthropathy contribute to mild bilateral foraminal narrowing slightly worse on the right on the left. There is mild ove rall central canal narrowing, and left first and subarticular recess narrowing. These findings are substantially changed compared to the prior study. L3-L4: Disc bulge and facet arthropathy contribute to mild foraminal narrowing. There is minimal central canal narrowing . Findings are similar to the prior study. L4-L5: Disc bulge, facet arthropathy, an d redundancy of ligamentum flavum contributes to [id number] central canal narrowing. There is mild bilateral foraminal narrowing. Compared to the shruthi or study the foraminal synovial cysts no longer present. L5-S1: There is fairly extensive bilater al facet arthropathy with unchanged mild bilateral foraminal narrowing. The degre e of narrowing of the subarticular recess is unchanged. IMPRESSION Impression: Multilevel lumbar spine dege nerative changes. Compared to the prior study, the facet synovial cyst at L4-L5 are no longer identified. Findings at other levels are similar to the previous study. Comment: The Following Findings Are So C ommon In People Without Low Back Pain That While We Report Their Presence, The y Must Be Interpreted With Caution And In Context Of The Clinical Situation (Re jose Gann Et Al, Spine 2001). Findings: (Prevalence In Patients Withou t Low Back Pain), Disc Degeneration (Decreased T2 Signal, Height Loss, Bulge ) (91%), Disc T2-Signal Loss (83%), Disc Height Loss (56%), Disc Bulge (64%), Dis c Protrusion (32%), Annular Fissure (38%). Renetta Pappas MD IMG MRI ORDERABLES documented in this encounter Visit Diagnoses Not on filedocumented in this encounter Care Teams Under Ground Miner Relationship Specialty Start Date End Date Shania Mcknight APRN PCP - General Internal Medicine 12/28/15 11/22/17 [address] [place] [address] documented as of this encounter
--- OUTSIDE RECORDS SUMMARY | 2021-10-07 14:03 | XMS_ITS | Encounter Summary ---
:1945 Author Organization [facility] [place] [address] Care Team Providers Name Role Phone Shania Mcknight APRN Primary Care Provider Reason for Referral Diagnostic Test (Routine) - Closed Specialty Diagnoses / Procedures Referred By Contact Refer red To Contact Radiology Diagnoses Lumbosacral radiculopathy at L5 Olive Jackson MD [facility] Rad Mri Procedures MRI Lumbar Spine wo Contrast (Generic) [facility] [address] [facility] NEUROLOGY [place], [place] [id number] [place] [phone] Referral ID Status Reason Start Date Expiration Date Visits V isits Requested Authorized [id number] Closed Specialty 09/27/2016 09/27/2017 1 1 Service Requested Reason for Visit Diagnostic Test (Routine) - Closed Specialty Diagnoses / Procedures Referred By Contact Refer red To Contact Radiology Diagnoses Lumbosacral radiculopathy at L5 Olive Jackson MD [facility] Rad Mri Procedures MRI Lumbar Spine wo Contrast (Generic) [facility] NEUROLOGY [place], [place] [id number] [place] [phone] Referral ID Status Reason Start Date Expiration Date Visits V isits Requested Authorized [id number] Closed Specialty 09/27/2016 09/27/2017 1 1 Service Requested Encounter Details Date Type Department Care Team Description 10/12/2016 Hospital Encounter MRI [facility] Olive Jackson Lumbosacral [facility] MD [place] radiculopathy at L5 [facility] [id number] NEUROLOGY DEPT [phone] [place] [address] Social History Tobacco Use Types Packs/Day Years Used Date Former Smoker Cigarettes Smokeless Tobacco: Never Used Comments: 2001 Alcohol Use Standard Drinks/Week Comments No 0 (1 standard drink = 0.6 oz pure alcoho l) Sex Assigned at Date Recorded Not on file documented as of this encounter Medications at Time of Discharge Medication Sig Dispensed Refills Start Date End Date pantoprazole (PROTONIX) Take 40 mg by mouth 0 40 mg Tablet, Delayed daily. Release (E.C.)Indications: Lumbosacral radiculopathy at L5 metaxalone (SKELAXIN) 800 Take 800 mg by mouth 0 mg Tablet 3 times daily. aspirin 81 mg EC tablet Take 81 mg by mouth 0 daily. propranolol (INDERAL) 10 Take 10 mg by mouth 0 mg tablet 2 times daily. hydroCODone-acetaminophen Take 1 tablet by 0 (LORCET) 10-650 mg per mouth every 4 hours. tablet Amoxicillin 500 mg Tab 2000MG, PO, 4 tabs 0 12/22 prior to dental work potassium chloride Take 20 mEq by mouth 0 10/19/2016 (K-DUR/KLOR-CON) 10 mEq daily. Tablet Sustained ReleaseIndications: Lumbosacral radiculopathy at L5 gabapentin (NEURONTIN) Take 400 mg by mouth 0 10/19/2016 100 mg Capsule nightly. Reported on 09/27/2016 documented as of this encounter Plan of Treatment Not on filedocumented as of this encounter Procedures Procedure Name Priority Date/Time Associated Diagnosis Comme nts MRI LUMBAR SPINE Routine 10/12/2016 5:17 PM Lumbosacral Resul ts for this WITHOUT CONTRAST EDT radiculopathy at L5 proc edure are in the results section. documented in this encounter Results MRI Lumbar Spine wo Contrast (Generic) (10/12/2016 5:17 PM EDT) Anatomical Region Laterality Modality L-spine Magnetic Resonance Specimen (Source) Anatomical Location Collection Method / Collectio n Time Received Time / Laterality Volume Impressions 10/12/2016 11:12 PM EDT Multilevel degenerative change, most advanced at L4-5 where hypertrophic facet arthropathy and synovial cysts which cou ld cause foraminal nerve root impingement. The right-sided cyst is sma ll and may or may not be amenable to percutaneous rupture. Comment: The following findings are so c ommon in people without low back pain that while we report their presence, the y must be interpreted with caution and in context of the clinical situation (Re robert- Azeem et al, Spine 2001). Findings: (Prevalence in patients withou t low back pain), disc degeneration (decreased T2 signal, height loss, bulge ) (91%), disc T2-signal loss (83%), disc height loss (56%), disc bulge (64%), dis c protrusion (32%), annular fissure (38%). Narrative 10/12/2016 11:12 PM EDT EXAMINATION: MRI LUMBAR SPINE WO CONTRAST (GENERIC) CLINICAL HISTORY: L5 radiculopathy on th e right refractory to PT TECHNIQUE: MRI of the lumbar spine was p erformed without contrast, routine radiculopathy protocol. ? COMPARISON: None FINDINGS: Exaggerated lumbar lordosis wi th mild retrolisthesis of L1 with respect to L2 and L2 with respect to L3. ??The regional bone marrow is diffusely heterogeneous in signal. The vertebral b rocky heights are maintained. Minimal fluid signal between L4-5 and L5-S1 spin ous processes may reflect early Baastrup's disease. The conus is normal in signal and caliber, terminating at L1. Visualized retroperitoneal contents are unremarkable. Findings at individual levels: T11-T12: Small central disc extrusion wi th minimal cranial migration indents the ventral thecal sac appears to mildly def orm the ventral conus. Right sided perineural cyst. T12-L1: ??No canal or neural foraminal s tenosis. L1-L2: ??Retrolisthesis and posterior ma rginal osteophytes contribute to moderate right subarticular recess end mild to mo derate right neural foraminal narrowing. No central canal narrowing ? L2-L3: ??Disc bulge eccentric to the lef t and mild facet arthropathy. Moderate left and mild right subarticular recess narrowing. Mild to moderate right and moderate left neural foraminal narrowing . ??Minimal central canal narrowing. ? L3-L4: ??Disc height loss with mild florian lar disc bulge and mild facet arthropathy contribute to mild canal narrowing. Mild to moderate bilateral neural foraminal narrowing. ? L4-L5: ??Mild annular disc bulge and mod erate facet arthropathy with buckling of ligamentum flavum contribute to mild to moderate central canal narrowing and moderate left and mild right subarticula r recess narrowing. Mild to moderate right neural foraminal narrowing. Tiny r ight-sided synovial cyst within the right neural foramen may contact the exi ting right L4 nerve root.. ??Left-sided synovial cyst contributes to at least mo derate left neural foraminal narrowing and possible left L4 nerve root impingem ent. L5-S1: ??Minimal disc bulge and moderate facet arthropathy contribute to mild to moderate right and mild left subarticula r recess narrowing. No central canal stenosis. Mild bilateral neural foramina l narrowing. ??Right-sided synovial cyst projects into the posterior paraspinal s oft tissues. ? Procedure Note Anita Villatoro MD - 10/12/2016Form atting of this note might be different from the original. EXAMINATION: MRI LUMBAR SPINE WO CONTRAS T (GENERIC) CLINICAL HISTORY: L5 radiculopathy on th e right refractory to PT TECHNIQUE: MRI of the lumbar spine was p erformed without contrast, routine radiculopathy protocol. COMPARISON: None FINDINGS: Exaggerated lumbar lordosis wi th mild retrolisthesis of L1 with respect to L2 and L2 with respect to L3. The regional bone marrow is diffusely heterogeneous in signal. The vertebral b rocky heights are maintained. Minimal fluid signal between L4-5 and L5-S1 spin ous processes may reflect early Baastrup's disease. The conus is normal in signal and caliber, terminating at L1. Visualized retroperitoneal contents are unremarkable. Findings at individual levels: T11-T12: Small central disc extrusion wi th minimal cranial migration indents the ventral thecal sac appears to mildly def orm the ventral conus. Right sided perineural cyst. T12-L1: No canal or neural foraminal prince nosis. L1-L2: Retrolisthesis and posterior zia inal osteophytes contribute to moderate right subarticular recess end mild to mo derate right neural foraminal narrowing. No central canal narrowing L2-L3: Disc bulge eccentric to the left and mild facet arthropathy. Moderate left and mild right subarticular recess narrowing. Mild to moderate right and moderate left neural foraminal narrowing . Minimal central canal narrowing. L3-L4: Disc height loss with mild annula r disc bulge and mild facet arthropathy contribute to mild canal narrowing. Mild to moderate bilateral neural foraminal narrowing. L4-L5: Mild annular disc bulge and moder ate facet arthropathy with buckling of ligamentum flavum contribute to mild to moderate central canal narrowing and moderate left and mild right subarticula r recess narrowing. Mild to moderate right neural foraminal narrowing. Tiny r ight-sided synovial cyst within the right neural foramen may contact the exi ting right L4 nerve root.. Left-sided synovial cyst contributes to at least mo derate left neural foraminal narrowing and possible left L4 nerve root impingem ent. L5-S1: Minimal disc bulge and moderate f acet arthropathy contribute to mild to moderate right and mild left subarticula r recess narrowing. No central canal stenosis. Mild bilateral neural foramina l narrowing. Right-sided synovial cyst projects into the posterior paraspinal s oft tissues. IMPRESSION Multilevel degenerative change, most adv anced at L4-5 where hypertrophic facet arthropathy and synovial cysts which cou ld cause foraminal nerve root impingement. The right-sided cyst is sma ll and may or may not be amenable to percutaneous rupture. Comment: The following findings are so c ommon in people without low back pain that while we report their presence, the y must be interpreted with caution and in context of the clinical situation (Re jose Gann et al, Spine 2001). Findings: (Prevalence in patients withou t low back pain), disc degeneration (decreased T2 signal, height loss, bulge ) (91%), disc T2-signal loss (83%), disc height loss (56%), disc bulge (64%), dis c protrusion (32%), annular fissure (38%). Olive Jackson MD IM[facility] MRI ORDERABLES documented in this encounter Visit Diagnoses Diagnosis Lumbosacral radiculopathy at L5 Thoracic or lumbosacral neuritis or radi culitis, unspecified documented in this encounter Care Teams E Commerce Merchant Relationship Specialty Start Date End Date Shania Mcknight APRN PCP - General Internal Medicine 12/28/15 11/22/17 [address] [place] [address] documented as of this encounter
--- OUTSIDE RECORDS SUMMARY | 2021-10-07 14:03 | XMS_ITS | Encounter Summary ---
:1945 Author Organization [facility] [place] [address] Care Team Providers Name Role Phone Shania Mcknight APRN Primary Care Provider Encounter Details Date Type Department Care Team Description 08/16/2017 Interpretation Only [facility] Renetta Pappas, [address], [place] [phone] [facility] [phone] [place], [place] [address] (Wo rk) Social History Tobacco [...] Priority Date/Time Associated Diagnosis Comme nts MRI CERVICAL SPINE Routine 08/16/2017 3:17 PM Res ults for this WO CONTRAST EDT procedure are i n the results section. documented in this encounter Results MRI Cervical Spine wo Contrast (Generic) (08/16/2017 3:17 PM EDT) Anatomical Region Laterality Modality C-spine Magnetic Resonance Specimen (Source) Anatomical Collection Method [...] on filedocumented in this encounter Care Teams Asphalt Roller Person Relationship Specialty Start Date End Date Shania Mcknight APRN PCP - General Internal Medicine 12/28/15 11/22/17 [address] [place] [address] documented as of this encounter
--- OUTSIDE RECORDS SUMMARY | 2021-10-07 14:03 | XMS_ITS | Encounter Summary ---
:1945 Author Organization [facility] [address] Care Team Providers Name Role Phone Shania Mcknight APRN Primary Care Provider Encounter Details Date Type Department Care Team Description 09/30/2016 External Results Neurology at [facility] Olive Jackson, [facility] [place] [address] [facility] [phone] NEUROLOGY DEPT [place], [place] [address] (Wo rk) Social History Tobacco [...] Name Priority Date/Time Associated Diagnosis Comme nts EMG SCAN Routine 09/27/2016 documented in this encounter Results Scan Doc: EMG (09/27/2016) Narrative This result has an attachment that is no t available. Olive Jackson MD MEDIA MGR SCAN EXT ORDR/RSLT documented in this encounter Visit Diagnoses Not on filedocumented in this encounter Care Teams Carpenter Helper Relationship Specialty Start Date End Date Shania Mcknight APRN PCP - General Internal Medicine 12/28/15 11/22/17 [address] [place] [address] documented as of this encounter
--- OUTSIDE RECORDS SUMMARY | 2021-10-07 14:03 | XMS_ITS | Encounter Summary ---
:1945 Author Organization [facility] [place] [address] Care Team Providers Name Role Phone Eitan Nixon MD Primary Care Provider Encounter Details Date Type Department Care Team Description 11/29/2018 Office Visit Ophthalmology at [facility] Cheli Sanchez, Fourth nerve palsy, unspecif ied laterality; 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 This improves the alignment and reduces the closing of the left eye. Plan: Prism power reduced today. A 4 Base down on the right lens of distance and sunglasses provides comfortable vision. ?? documented in this encounter Plan of Treatment Not on filedocumented as of this encounter Procedures Procedure Name Priority Date/Time Associated Diagnosis Comme nts SENSORIMOTOR EXAM Routine 11/29/2018 3:36 PM Fourth nerve pals y, Results for this EDT unspecified procedure are i n laterality the results Vertical strabismus section. of right eye documented in this encounter Results SENSORIMOTOR EXAM [MA SPECIAL EYE EXAM] - OU- BOTH EYES (11/29/2018 3:36 PM EDT) Anatomical Region Laterality Modality Other Specimen (Source) Anatomical Location Collection Method / Collectio n Time Received Time / Laterality Volume Narrative 11/29/2018 3:36 PM EDT See Orthoptic Note. 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
--- OUTSIDE RECORDS SUMMARY | 2021-10-07 14:03 | XMS_ITS | Encounter Summary ---
:1945 Author Organization [facility] [place] [address] Care Team Providers Name Role Phone Shania Mcknight APRN Primary Care Provider Encounter Details Date Type Department Care Team Description 09/27/2016 Orders Only Neurology at [facility] [place] [phone] Social History Tobacco Use Types Packs/Day [...] on filedocumented in this encounter Care Teams Care Management Associate Relationship Specialty Start Date End Date Shania Mcknight APRN PCP - General Internal Medicine 12/28/15 11/22/17 [address] [place] [address] documented as of this encounter
--- OUTSIDE RECORDS SUMMARY | 2021-10-07 14:03 | XMS_ITS | Encounter Summary ---
:1945 Author Organization [facility] [place] [address] Care Team Providers Name Role Phone Joelal Shaniahernan YORK Primary Care Provider Reason for Referral Diagnostic Test (Routine) - Closed Specialty Diagnoses / Procedures Referred By Contact Refer red To Contact Radiology Diagnoses Lumbosacral radiculopathy at L5 Olive Conn MD [facility] Rad Mri Procedures MRI Lumbar Spine wo Contrast (Generic) [facility] NEUROLOGY DEPT [place], [place] [id number] [place] [phone] Referral ID Status Reason Start Date Expiration Date Visits V isits Requested Authorized [id number] Closed Specialty 09/27/2016 09/27/2017 1 1 Service Requested Consultation (Routine) - Closed Specialty Diagnoses / Procedures Referred By Contact Refer red To Contact Pain Management Diagnoses Lumbosacral radiculopathy at L5 Olive Conn [facility] [address] [place] [address] [place] [address] [place] [address] Fax: Referral ID Status Reason Start Date Expiration Date Visits V isits Requested Authorized [id number] Closed Consult, 09/27/2016 09/27/2017 1 1 Test & Treat Consultation (Routine) - Closed Specialty Diagnoses / Procedures Referred By Contact Refer red To Contact Orthopaedics Diagnoses Lumbosacral radiculopathy at L5 Olive Conn MD [facility] D [facility] [place] [address] [place] [address] Referral ID Status Reason Start Date Expiration Date Visits V isits Requested Authorized [id number] Closed Consult, 09/27/2016 09/27/2017 1 1 Test & Treat Reason for Visit Consultation (Routine) - Closed Specialty Diagnoses / Procedures Referred By Contact Refer red To Contact Neurology Diagnoses lumbar stenosis, right sciatic pain Vikas Hardwick MD [facility] [address] [address] Fax: Referral ID Status Reason Start Date Expiration Date Visits Requ ested Visits Authorized [id number] Closed 08/11/2016 08/11/2017 1 1 Encounter Details Date Type Department Care Team Description 09/27/2016 Procedure visit Neurology at [facility] Olive Conn Lumbosacral [facility] MD [place] radiculopathy at L5 [facility] [address] NEUROLOGY DEPT [phone] [place], [place] [address] Social History Tobacco Use Types Packs/Day Years Used Date Former Smoker Cigarettes Smokeless Tobacco: Never Used Comments: 2001 Alcohol Use Standard Drinks/Week Comments No 0 (1 standard drink = 0.6 oz pure alcoho l) Sex Assigned at Date Recorded Not on file documented as of this encounter Last Filed Vital Signs Vital Sign Reading Time Taken Comments Blood Pressure 149/91 09/27/2016 2:30 PM EDT Pulse 92 09/27/2016 2:30 PM EDT Temperature - - Respiratory Rate - - Oxygen Saturation - - Inhaled Oxygen Concentration - - Weight 76.9 kg (169 lb 9.6 oz) 09/27/2016 2:30 PM EDT Height 162.6 cm (5' 4) 09/27/2016 2:30 PM EDT reported Body Mass Index 29.11 09/27/2016 2:30 PM EDT documented in this encounter Progress Notes Olive oCnn MD - 09/27/2016 2:15 PM EDT Subjective: Shannan Rowley is a 71 y.o. right handed female referred by Dr. Hardwick for evaluation: Referral request: right sciatic pain She has a long history of back pain but symptoms became severe in mid-April. This was severe and fairly acute in onset - she reports leaning over and gettingstruck by an unbelievable pain. It was localized to her back and extended down into the buttock on the right. She couldn't sit, stand or lay d own. She was using GBP, opiate and NSAIDs without relief. She subsequently developed LE edema. She was treated with diuretics but her K levels became dangerously low. She has had superimposed difficulties related to hypokalemia. She has been in PT for 2 months. This has been helpful overall, but there are still some days when she is doing very poorly. She is using an forearm crutch because of being unstable. She was directed to use a walker but cannot do that because of uneven ground here in the [place] area. She did get a 15 day course of steroids X 2; it was eventually effective but it took ~13 days before it became effective. It was not long lasting - the pain recurred a few weeks later. She did get back injections down in [place]. These were minimally effective. She has been very active in the past - in the last 6 months she has been doing pilates; this has not been helpful. Aquatic therapy helped her maintain but was not p articularly helpful. She can identify no specific positions, activities or other precipitants to the onset of the difficulties. With respect to specific position, she has identified being in bed as a precipitant - she attributes this to a certain extent to her mattress in [place]. She has had hip replacements X2. These were done in 2001 (R), 2002 (L) and she did well with these (done here). She began to notice some tingling (not painful) in the right leg extending down the right leg. This is a separate feeling than thatassociated with the searing pain. IN [place], she has been seen by the pain specialists but not by neurology or neurosurgery. She has had MRI of lumbar spine. Her history is significant for DVT - this was after antiplatelets agents were removed because of GI bleed. Outside reports reviewed: office notes and referral letter/letters. Patient's medications, allergies, past medical, surgical, social and family histories were reviewed and updated as appropriate. Review of Systems Pertinent items are noted in HPI. Objective: Physical Exam: BP 145/92 mmHg Pulse 80 Ht 152.5 cm (5' 0.05) Wt 84.823 kg (187 lb) BMI 36.47 kg/m2 Appearance: The patient is a female who appears of stated age and comes to her visit unaccompanied. she appears uncomfortable with walking and uses a forearm crutch to get around. Extremities: no edema, no foot or skeletal deformities, color and temperature symmetric and normal Mental status: The patient is alert and calm with MS intact to detailed questioning regarding her history. her speech and language is intact to normal conversation and examination commands; speech fluent. her attention and concentration allow for a full evaluation without evidence for deficit. Short-te rm and long-term memory are normal. Cranial nerves: Facial movements are normal. Hearing is normal to conversation. No evidence of dysphonia or hoarseness of voice. Motor: HF HE KE KF HAB HADD ADF APF I E Right 4+ nt 5 5 5 5 5 5 5 5 Left 4 nt 5 5- 5 5 5- 5 5 5- There is no atrophy or fasciculations. There is no myoclonus, tremor, change in tone, or drift. Sensory: Vibration: Ltoe nt Rtoe nt LMM 8 RMM 8 Lknee 8 Rknee 8 LDIP2 8 RDIP2 8 LDIP5 nt RDIP5 nt Proprioception: intact proximally Coordination: No cerebellar ataxia. Gait and station: Difficulty rising from a seated position. Stance kyphotic; gait unsteady. Tendon reflexes: biceps triceps BR patellar AJ Plantars Right 1 tr 1 tr 0 mute Left 1 tr 1 tr 0 mute Relevant diagnostic Tests and Imaging: NCS/EMG: The right peroneal motor response amplitude was reduced with preserved distal motor latencyand conduction velocity. The right superficial peroneal SNAP was absent. There was some recovery of amplitude recording from the anterior tibialis but it was still borderline. The right tibial motor response amplitude was also reduced with preserved distal motor latency and conduction velocity. The left peroneal motor response amplitude was reduced but larger than on the right with normal distal motor latency and conduction velocity. The left tibial motor response was symmetrically reduced in amplitude with normal distal motor latency. Peroneal late response latencies in the right tibial late response latency was preserved. The left peroneal SNAP was absent and the right sural SNAP was preserved. Needle EMG revealed 2+ fibrillation potentials and positive sharp waves in the right EDB and 1+ in the right peroneus longus with reduced recruitment in the tensor fascia arline without denervation in theL5 paraspinal or biceps femoris, short head. Complex repetitive discharges were seen in the right [id number] muscle. IMPRESSION: Abnormal study. The electrodiagnostic findings are most consistent with a disorder of motor axons bilaterally, left greater than right, with evidence to suggest a right L5 lumbosacral radiculopathy. Clinical and radiologic correlation is suggested. Assessment: Shannan Rowley is a 71 y.o. female status post hip replacement who presents with bilateral lower extremity pain, right greater than left, with associated chronic lumbar back pain. Her electrodiagnostic study reveals a disorder of motor axons and I suspect this is related to lumbar stenosis given preservation of the sural sensory response. The superficial peroneal sensory responses could not be obtained but this can be difficult especially in older individuals and may be technical in origin. Correlation with lumbar spine MRI is most important especially given the presence of evidence for an L5 radiculopathy. This would obviously be a target for therapy and if severe, possible referral tothe spine Center. She has been refractory to a number of conservative approaches including physical therapy, medications and steroids. I think it would be reasonable however to anticipate potentially the need lumbar injections and I have initiated also referral to the pain clinic. Orders Placed This Encounter Procedures ??? MRI Lumbar Spine wo Contrast (Generic) ??? Referral to Spine Center ??? Referral to Pain Clinic Follow up after referrals. OLIVE CONN I spent 40 minutes of face-face time with the patient, with 22 minutes spent in counseling and coordination of care, excluding the time spent in performing electrodiagnostic studies. documented in this encounter Plan of Treatment Scheduled Referrals Name Type Priority Associated Diagnoses Order S chedule Referral to Spine Outpatient Referral Routine Lumbosacral Ord ered: Center radiculopathy at L5 09/28/19 17 Referral to Pain Outpatient Referral Routine Lumbosacral Orde red: Clinic radiculopathy at L5 09/28/19 17 documented as of this encounter Results MRI Lumbar Spine wo [...] c protrusion (32%), annular fissure (38%). Olive Conn MD IMG MRI ORDERABLES documented in this encounter Visit Diagnoses Diagnosis Lumbosacral radiculopathy at L5 Thoracic or lumbosacral neuritis or radi culitis, unspecified Lumbosacral radiculopathy at L5 Thoracic or lumbosacral neuritis or radi culitis, unspecified documented in this encounter Care Teams Issuer Relationship Specialty Start Date End Date Shania Mcknight APRN PCP - General Internal Medicine 12/28/15 11/22/17 [address] [place] [address] documented as of this encounter
--- OUTSIDE RECORDS SUMMARY | 2021-10-07 14:03 | XMS_ITS | Encounter Summary ---
:1945 Author Organization [facility] [place] [address] Care Team Providers Name Role Phone Shania Mcknight APRN Primary Care Provider Reason for Referral Consultation (Routine) - Closed Specialty Diagnoses / Procedures Referred By Contact Refer red To Contact Orthopaedics Diagnoses Lumbar spinal stenosis, L4-L5 spondylolisthesis/ MRI 10/12/16 & XR 11/30/16 in [facility] Ermias Toth PA McGuire, Kevin J, MD [facility] [place] [address] [facility] [place] [phone] Phone: Fax: Referral ID Status Reason Start Date Expiration Date Visits V isits Requested Authorized [id number] Closed Consult, 12/02/2016 12/02/2017 1 1 Test & Treat Encounter Details Date Type Department Care Team Description 12/02/2016 Telephone Spine Center at [facility] non Ermias Toth PA [facility] [place] [address] [place] [address] [phone] (Wo rk) Social History Tobacco Use Types Packs/Day Years Used Date Former Smoker Cigarettes Smokeless Tobacco: Never Used Comments: 2001 Alcohol Use Standard Drinks/Week Comments No 0 (1 standard drink = 0.6 oz pure alcoho l) Sex Assigned at Date Recorded Not on file documented as of this encounter Miscellaneous Notes Telephone Encounter - Ermias Toth PA - 12/02/2016 11:27 AM EDT Spoke with Shannan Rowley regarding results of lumbar XR, which shows degenerative spondylolisthesis L4-L5, increased in flexion and reduces in extension. Discussed with . Amrik that surgery is certainly an option, particularly with fusion at the L4-L5 level, per my consultation with Dr. Buenrostro. She is agreeable to surgical consultation. We will set this up for her. Advised that further nonoperative management is still certainly an option, should she decide not to proceed with surgery. documented in this encounter Plan of Treatment Scheduled Referrals Name Type Priority Associated Diagnoses Order S chedule Referral to Spine Outpatient Routine Spondylolisthesis at Or dered: Center Referral L4-L5 level 12/02/2016 Radiculopathy of lumbar region documented as of this encounter Visit Diagnoses Diagnosis Spondylolisthesis at L4-L5 level Radiculopathy of lumbar region Thoracic or lumbosacral neuritis or radi culitis, unspecified documented in this encounter Care Teams Plastics Supervisor Relationship Specialty Start Date End Date Shania Mcknight APRN PCP - General Internal Medicine 12/28/15 11/22/17 [address] [place] [address] documented as of this encounter
--- OUTSIDE RECORDS SUMMARY | 2021-10-07 14:03 | XMS_ITS | Encounter Summary ---
:1945 Author Organization [facility] [place] [address] Care Team Providers Name Role Phone Shania Mcknight CLAY TEMPERER Primary Care Provider Encounter Details Date Type Department Care Team Description 11/30/2016 Hospital Encounter XRay at [facility] Randy Montes, Radiculopathy [facility]ORAN lumbar region [facility] [place] [address] [place] [phone] [place] [address] Social History Tobacco Use Types Packs/Day Years [...] Priority Date/Time Associated Diagnosis Comme nts XR LUMBAR SPINE AP Routine 11/30/2016 1:51 PM Radiculopathy of Results for this FLEXION AND EDT lumbar region procedure are in EXTENSION ONLY the results section. documented in this encounter Results XR Lumbar Spine AP [...] unspecified documented in this encounter Care Teams Family Preservation Caseworker Relationship Specialty Start Date End Date Shania Mcknight APRN PCP - General Internal Medicine 12/28/15 11/22/17 [address] [place] [address] documented as of this encounter
--- OUTSIDE RECORDS SUMMARY | 2021-10-07 14:03 | XMS_ITS | Encounter Summary ---
:1945 Author Organization [facility] Address [address] [place] [address] Care Team Providers Name Role Phone Roxanna Shania JAYLEN Primary Care Provider Encounter Details Date Type Department Care Team Description 12/12/2016 Hospital Encounter Mammography at [facility] Eitan Nixon MD Visit for screening [facility] [address] [address] [phone] Social History Tobacco Use Types Packs/Day Years [...] Diagnosis Comme nts MAMMO SCREENING CAD Routine 12/12/2016 3:20 PM Visit for reina solomon Results for this AND TITI BILATERAL EDT mammogram procedure are in the results section. documented in this encounter Results Mammo Screen CAD and Titi Bilat (Generic) (12/12/2016 3:20 PM EDT) Anatomical Region Laterality Modality Breast Bilateral Mammography Specimen (Source) Anatomical Location Collection Method / Collectio n Time Received Time / Laterality Volume Narrative 12/12/2016 3:48 PM EDT BILATERAL MAMMOGRAPHY REASON FOR EXAM: [...] CONCLUSION: No mammographic evidence of malignancy. RECOMMENDATION: The [employer] and The Society of Breast Imaging recommend annual screenin g beginning at age 40 for the general female population. Screening joe uld continue as long as a woman is in good health and is expected to live 1 0 more years or longer. All women should be familiar with the known benefi ts, limitations, and potential harms linked to breast cancer screening. They should also know how their breasts normally look and feel and repor t any breast changes to a health care provider right away. Some women - b ecause of their family history, a genetic tendency, or certain other facto rs - should be screened with MRIs along with mammograms. (The number of wo men who fall into this category is very small.) The patient and health care provider should discuss the patient history and decide if earlier sc reening and breast MRI are appropriate. A result letter has been sent to this charleen [place] by the [facility]. BIRADS CATEGORY 1: NEGATIVE Eitan Nixon MD IMG MAMMO ORDERABLES documented in this encounter Visit Diagnoses Diagnosis Visit for screening mammogram Other screening mammogram documented in this encounter Care Teams Medical Oncology Physician Relationship Specialty Start Date End Date Shania Mcknight APRN PCP - General Internal Medicine 12/28/15 11/22/17 [address] [place] [address] documented as of this encounter
--- OUTSIDE RECORDS SUMMARY | 2021-10-07 14:03 | XMS_ITS | Encounter Summary ---
:1945 Author Organization [facility] Address [place] [address] Care Team Providers Name Role Phone Eitan Nixon MD Primary Care Provider Reason for Visit Reason Comments Eye Exam Encounter Details Date Type Department Care Team Description 11/23/2017 Office Visit Ophthalmology at [facility] C Maxine Winn, Combined forms of age-relate d cataract of both eyes; [facility] Fourth nerve palsy, unspecified laterali ty; [facility] Vertical strabismus of right eye; [place] [address] CENTER Astigmatism with presbyopia, bilateral [phone] OPHTHALMOLOGY DEPT [place] [address] Social History Tobacco Use Types Packs/Day Years Used Date Former Smoker Cigarettes Smokeless Tobacco: Never Used Comments: 2001 Alcohol Use Standard Drinks/Week Comments No 0 (1 standard drink = 0.6 oz pure alcoho l) Sex Assigned at Date Recorded Not on file documented as of this encounter Progress Notes Maxine Winn, OD - 11/23/2017 2:00 PM EDT Encounter Diagnoses Name Primary? Combined forms of age-related cataract of both eyes ??? Fourth nerve palsy, unspecified laterality ??? Vertical strabismus of right eye ??? Astigmatism with presbyopia, bilateral Shannan A Amrik is a 72 y.o. with the following ophthalmic problems: Assessment and Plan: Cataracts OU - Monitor for now, sooner with changes in vision. 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 Managed by Aundrea, had appt earlier today! It is important to note for future care and understanding; Vertical prisms are worn to bring the right eye down. This improves the alignment and reduces the closing of the left eye. Full amount of prism in right eye. - 8 VISHAL distance and near per Zahira. Patient prefers stick on prism versus ground in to glasses. Refractive Error OU - Rx given today - Findings and concerns discussed with Shannan and she expressed understanding. -Upon Return CEE in 1 year, sooner with changes in sx/vision. Eyeglass Final Rx Eyeglass Final Rx Sphere Cylinder [place] Add Right +0.75 +1.50 180 +2.50 Left +1.00 +0.25 180 +2.50 Expiration Date: 11/24/2019 documented in this encounter Plan of Treatment Not on filedocumented as of this encounter Visit Diagnoses Diagnosis Combined forms of age-related cataract o f both eyes Other and combined forms of senile catar act Fourth nerve palsy, unspecified laterali ty Vertical strabismus of right eye Hypertropia Astigmatism with presbyopia, bilateral documented in this encounter Care Teams Refund Specialist Relationship Specialty Start Date End Date Eitan Nixon MD PCP - General Family Medicine 11/23/17 11/04/[address] [place] [address] documented as of this encounter
--- OUTSIDE RECORDS SUMMARY | 2021-10-07 14:03 | XMS_ITS | Clinical Summary ---
:1945 Author Organization [facility] [place] [address] Care Team Providers Name Role Phone Lashell Reardon APRN Primary Care Provider [phone] Allergies Active Allergy Reactions Severity Noted Date Comments Celecoxib Rash High Rash Fentanyl Nausea And Vomiting High Nausea/ Vomiting Oxycodone-Acetaminophen Nausea And Vomiting High Nausea/Vomiting Medications Medication Sig Dispensed Refills Start Date End Date Status Amoxicillin 500 mg Tab 2000MG, PO, 4 0 12/22/2009 Active tabs prior to dental work aspirin 81 mg EC tablet Take 81 mg by 0 Active mouth daily. propranolol (INDERAL) 10 Take 10 mg by 0 Active mg tablet mouth 2 times daily. hydroCODone-acetaminophe Take 1 tablet by 0 Active n (LORCET) 10-650 mg per mouth every 4 tablet hours. metaxalone (SKELAXIN) Take 800 mg by 0 Active 800 mg Tablet mouth 3 times daily. pantoprazole (PROTONIX) Take 40 mg by 0 Active 40 mg Tablet, Delayed mouth daily. Release (E.C.)Indications: Lumbosacral radiculopathy at L5 Active Problems Problem Noted Date Combined forms of age-related cataract of both eyes Osteopenia 12/04/2014 Hyperlipidemia 12/04/2014 S/P total hip arthroplasty 12/10/2013 Overview: Left SHELLEY- Dr. Au- 12/23/2003. Right T SINGLETARY- Dr. Wang-2001. Shoulder pain, bilateral 09/27/2012 Bilateral hand numbness 09/27/2012 Fourth nerve palsy 09/17/2012 Overview: OD, likely long-standing and decompensat ing, no other CN findings. Cataract 09/17/2012 Overview: OU, not yet visually significant Resolved Problems Problem Noted Date Resolved Date Trochanteric bursitis of right hip 12/10/201312/04 Family History Patient is adopted Medical History Relation Comments Breast Cancer Neg Hx Social History Tobacco Use Types Packs/Day Years Used Date Former Smoker Cigarettes Smokeless Tobacco: Never Used Comments: 2001 Alcohol Use Standard Drinks/Week Comments No 0 (1 standard drink = 0.6 oz pure alcoho l) Sex Assigned at Date Recorded Not on file Last Filed Vital Signs Vital Sign Reading Time Taken Comments Blood Pressure 141/90 10/24/2019 2:11 PM EDT Pulse 81 10/24/2019 2:11 PM EDT Temperature - - Respiratory Rate - - Oxygen Saturation 97% 11/18/2016 10:53 AM EDT Inhaled Oxygen Concentration - - Weight 68 kg (150 lb) 10/24/2019 2:11 PM EDT Height 162.6 cm (5' 4) 10/24/2019 2:11 PM EDT Body Mass Index 25.75 10/24/2019 2:11 PM EDT Plan of Treatment Health Maintenance Due Date Last Done Comments Covid-19 Vaccine (#1) 1950 Hepatitis C Screening 1963 Tdap adult 1964 Tetanus vaccine 1964 Zoster vaccine (1 of 2) 1995 Bone Density Scan 2010 Pneumoccocal Vaccine: 65+ (1 - PCV) 2010 Influenza (Flu) vaccine (1 of 1 - Influenza standard 12/02/2021 series) Insurance Payer Benefit Plan Subscriber ID Effective Phone Address Typ e / Group Dates MEDICARE MEDICARE PART [id number] 2002-Pres [phone] [place] [address] [facility] [id number] 2002-Pres [phone] [address] [place] [address] Advance Directives Documents on File Type Date Recorded Patient Mental Hygiene Consultant Explanati on Advance Directives and Living 06/02/2010 9:57 AM Will Care Teams Supervisor [employer]intering Plant Relationship Specialty Start Date End Date Lashell Reardon, JAYLEN PCP - General Family Medicine 11/05/[address] [place], [place] [id number]
--- OUTSIDE RECORDS SUMMARY | 2021-10-07 14:03 | XMS_ITS | Encounter Summary ---
:1945 Author Organization [facility] [address] Care Team Providers Name Role Phone Shania Mcknight AMERICAN BOARD CERTIFIED ORTHOTIST Primary Care Provider Encounter Details Date Type Department Care Team Description 12/12/2016 Hospital Encounter XRay at [facility] Jake Weems H/O total hip [address] [facility] [address] Fercho MD arthroplasty, [facility] [id number] JONANCY [phone] ORTHOPAEDIC SURGERY [place] [id number] Social History Tobacco Use Types Packs/Day Years [...] nts XR PELVIS AND HIP 2 Routine 12/12/2016 1:58 PM H/O total hip R esults for this VIEWS BILATERAL EDT arthroplasty, procedure a re in bilateral the results section. documented in this encounter Results XR Pelvis w AP & Lat Hip Bilat (12/12/2016 1:58 PM EDT) Anatomical Region Laterality Modality Pelvis, Hip Bilateral Digital Radiography Specimen (Source) Anatomical Location Collection Method / Collectio n Time Received Time / Laterality Volume Impressions 12/12/2016 2:58 PM EDT Bilateral THAs without radiographic evidence of complication. Narrative 12/12/2016 2:58 PM EDT EXAMINATION: XR PELVIS W AP AND LAT HIP BILAT CLINICAL HISTORY: History of bilateral t otal hip arthroplasty TECHNIQUE: Frontal radiograph of the pelvis and fro ntal and frog-leg lateral radiographs of bilateral hips were obtained. COMPARISON: Pelvic and hip radiographs ranging from 09/25/2003 through 12/03/2014. FINDINGS: There are bilateral total hip arthroplas ties. No radiographic evidence of hardware loosening. No periprosthetic fr acture or dislocation. Degenerative changes of the sacroiliac joints and pub ic symphysis pubis again seen. The sacrum is partly obscured by overlying b owel gas and stool. Procedure Note Lynn Caballero MD - 12/12/2016Formatting o f this note might be different from the original. EXAMINATION: XR PELVIS W AP AND LAT HIP BILAT CLINICAL HISTORY: History of bilateral t otal hip arthroplasty TECHNIQUE: Frontal radiograph of the pelvis and fro ntal and frog-leg lateral radiographs of bilateral hips were obtained. COMPARISON: Pelvic and hip radiographs ranging from 09/25/2003 through 12/03/2014. FINDINGS: There are bilateral total hip arthroplas ties. No radiographic evidence of hardware loosening. No periprosthetic fr acture or dislocation. Degenerative changes of the sacroiliac joints and pub ic symphysis pubis again seen. The sacrum is partly obscured by overlying b owel gas and stool. IMPRESSION Bilateral THAs without radiographic evid ence of complication. Jake Weems MD IMG DX ORDERABLES documented in this encounter Visit Diagnoses Diagnosis H/O total hip arthroplasty, bilateral documented in this encounter Care Teams Cheerleading Coach Relationship Specialty Start Date End Date Shania Mcknight APRN PCP - General Internal Medicine 12/28/15 11/22/17 [address] [place] [address] documented as of this encounter
--- OUTSIDE RECORDS SUMMARY | 2021-10-07 14:03 | XMS_ITS | Encounter Summary ---
:1945 Author Organization [facility] Address [facility] [address] [place] [address] Care Team Providers Name Role Phone Eitan Nixon MD Primary Care Provider Encounter Details Date Type Department Care Team Description 11/27/2017 Hospital En[place] [facility] Nixon MD Encounter for One [facility] [address] [facility] [place] [address] [phone] Social History Tobacco Use Types Packs/Day Years [...] Diagnosis Comme nts MAMMO SCREENING CAD Routine 11/27/2017 2:47 PM Encounter for R esults for this AND TITI BILATERAL EDT screening mammogram pr ocedure are in for breast cancer the result s section. documented in this encounter Results Mammo Screening Cad and Titi Bilateral (11/27/2017 2:47 PM EDT) Anatomical Region Laterality Modality Breast Bilateral Mammography Specimen (Source) Anatomical Location Collection Method / Collectio n Time Received Time / Laterality Volume Narrative 11/27/2017 4:16 PM EDT BILATERAL MAMMOGRAPHY REASON FOR EXAM: [...] No mammographic evidence of malignancy. RECOMMENDATION: The [employer] and The Society of [...] Imaging Center. BIRADS CATEGORY 1: NEGATIVE Eitan RANKIN MAMMO ORDERABLES documented in this encounter Visit Diagnoses Diagnosis Encounter for screening mammogram for br east cancer documented in this encounter Care Teams Economic Developer Relationship Specialty Start Date End Date Eitan Nixon MD PCP - General Family Medicine 11/23/17 11/04/[address] [place] [address] documented as of this encounter
--- OUTSIDE RECORDS SUMMARY | 2021-10-07 14:03 | XMS_ITS | Encounter Summary ---
:1945 Author Organization [facility] [place] [address] Care Team Providers Name Role Phone Eitan Nixon MD Primary Care Provider Encounter Details Date Type Department Care Team Description 12/06/2018 Hospital Encounter Mammography/DXA at Jack Nixon MD Visit for screening [facility] [address] [facility] [address] [place] [id number] [phone] Social History Tobacco Use Types Packs/Day Years [...] Diagnosis Comme nts MAMMO SCREENING CAD Routine 12/06/2018 3:41 PM Visit for reina solomon Results for this AND TITI BILATERAL EDT mammogram procedure are in the results section. documented in this encounter Results Mammo Screening Cad and Titi Bilateral (12/06/2018 3:41 PM EDT) Anatomical Region Laterality Modality Breast Bilateral Mammography Specimen (Source) Anatomical Location Collection Method / Collectio n Time Received Time / Laterality Volume Narrative 12/06/2018 4:21 PM EDT SCREENING MAMMOGRAPHY OF THE BILATERAL BREAST(S) REASON FOR EXAM: Screening TECHNIQUE: 2D digitally acquired Cranioc audal (CC) and Medio-lateral oblique (MLO) views were obtained of each breast . 3D tomosynthesis images were obtained in addition to 2D images. ??Computer Ass isted Detection was used. COMPARISON: 11/27/2017 back to 12/10/2013 FINDINGS: There are scattered areas of f ibroglandular density. There are no suspicious microcalcificati ons, masses, or areas of distortion. No changes compared to prior studies. CONCLUSION: No mammographic evidence of malignancy. RECOMMENDATION: Routine annual screening BIRADS CATEGORY 1: NEGATIVE * ??The [employer] an d The Society of Breast Imaging recommend annual screening beginning at age 40 for the general female population. * ??Screening should continue as long as a woman is in good health and is expected to live 10 more years or longer . * ??All women should be familiar with [facility] known benefits, limitations, and potential harms linked to breast cancer screening. They also should know how their breasts normally look and feel and report any breast changes to a health care provider right away. * ??Some women, because of their family history, a genetic tendency, or certain other factors, should be screened with M RIs along with mammograms. (The number of women who fall into this category is very small.) The patient and health care provider should discuss the patient hist ory and decide if earlier screening and breast MRI are appropriate. Thank you for letting us participate in the care of this patient. For questions regarding this report, please contact [facility] number below. ? Eitan Nixon MD IMG MAMMO ORDERABLES documented in this encounter Visit Diagnoses Diagnosis Visit for screening mammogram Other screening mammogram documented in this encounter Care Teams Knife Blade Polisher Relationship Specialty Start Date End Date Eitan Nixon MD PCP - General Family Medicine 11/23/17 11/04/[address] [place] [address] documented as of this encounter
--- OUTSIDE RECORDS SUMMARY | 2021-10-07 14:03 | XMS_ITS | Encounter Summary ---
:1945 Author Organization [place] [address] Care Team Providers Name Role Phone Jenny Mcknightdia JAYLEN Primary Care Provider Reason for Visit Reason Comments Eye Exam Encounter Details Date Type Department Care Team Description 10/25/2016 Office Visit Ophthalmology at [facility] C Yamileth Herrera Fourth nerve palsy, unspecif ied laterality; [facility] J, OD Combined forms of age-related cataract [place] [address] CENTER [phone] OPHTHALMOLOGY DEPT. [place] [id number] Social History Tobacco Use Types Packs/Day Years Used Date Former Smoker Cigarettes Smokeless Tobacco: Never Used Comments: 2001 Alcohol Use Standard Drinks/Week Comments No 0 (1 standard drink = 0.6 oz pure alcoho l) Sex Assigned at Date Recorded Not on file documented as of this encounter Progress Notes Yamileth Herrera, OD - 10/25/2016 11:40 AM EDT Shannan Rowley is a 71 y.o. female who had concerns including Eye Exam. New glasses Rx is good, just needs some prism. Undilated ocular health is good. Assessment: Encounter Diagnoses Name Primary? Fourth nerve palsy, unspecified laterality ??? Combined forms of age-related cataract of both eyes Plan: 1)see Zahira today for fresnel 2)cataract - pt ed: Monitor yearly Follow up: Prn. Pt sees someone in [place]. Eyeglass Final Rx Eyeglass Final Rx Comments: Declines Rx documented in this encounter Plan of Treatment Not on filedocumented as of this encounter Visit Diagnoses Diagnosis Fourth nerve palsy, unspecified laterali ty Combined forms of age-related cataract o f both eyes Other and combined forms of senile catar act documented in this encounter Care Teams Binder Cutter Relationship Specialty Start Date End Date Shania Mcknight APRN PCP - General Internal Medicine 12/28/15 11/22/17 [address] [place] [address] documented as of this encounter
--- OUTSIDE RECORDS SUMMARY | 2021-10-07 14:03 | XMS_ITS | Encounter Summary ---
:1945 Author Organization [facility] [place] [address] Care Team Providers Name Role Phone Eitan Nixon MD Primary Care Provider Reason for Visit Reason Comments Follow-up right SHELLEY 09/30/01 shirrefs/p ain Encounter Details Date Type Department Care Team Description 10/24/2019 Office Visit Orthopaedics at [facility] Vikas Flores, Status post total [facility] replacement of both [facility] [place] [address] CENTER [phone] ORTHOPAEDIC SURGERY [place] [address] Social History Tobacco Use Types Packs/Day Years [...] - Inhaled Oxygen Concentration - - Weight 68 kg (150 lb) 10/24/2019 2:11 PM EDT Height 162.6 cm (5' 4) 10/24/2019 2:11 PM EDT Body Mass Index 25.75 10/24/2019 2:11 PM EDT documented in this encounter Progress Notes Vikas Flores, PA - 10/24/2019 2:20 PM EDT Arthroplasty/Orthopaedic History: 1. Right SHELLEY. Dr. Bill. 09/03/2001. 2. Left SHELLEY. Dr. Au. 12/23/2003. HPI: Shannan Rowley is a very pleasant 74 y.o. year-old female and is now 16 and 18 years post bilateral total hip replacement The patient has been doing well in terms of her hip, but poorly in terms ofher back. In fact, that is why she presents today, to have her hips evaluated as a potiential sourceof pain, or a problem, in considering spine surgery.. Pain is controlled without any medications.. No fevers, chills, nausea, vomiting, or symptoms of infection. Shannan has been ambulating with a cane. Patient explains an extensive spine history of spinal stenosis. She presents today to the orthopedicarthroplasty service to evaluate her hips with radiographs to see if there is any contribution of her pain from her back into her buttock, down into her leg could be from the hips. She is entertain the thought of the spine surgery that could help her pain, but the spine provider wanted further work-upof her hips. She presents to the clinic with x-rays prior. She denies any groin pain. She denies anyclunking or instability of the hips. She herself does not think it is a problem. ROS: Denies: fever, chills, night sweats, nausea, or vomiting BP 141/90 Pulse 81 Ht 162.6 cm (5' 4) Wt 68 kg (150 lb) BMI 25.75 kg/m?? Physical Exam: Well-appearing female in no acute distress. Alert and Oriented x 3 and answers all questions appropriately. I have made the following determinations: Post Op Right Hip Exam: Leg length: Longer leg: equal Limb Length discrepancy: 0cm Motion: Flexion contracture: 0 Total degrees of Flexion:90 Total degrees of Abduction:40 Total degrees of Ext Rotation: 20 Total degrees of Internal Rotation: 20 Gait Abnormality: Antalgic Pulses Palpable: Right PT: Yes Right DP:Yes Motor/Sensory: Right Distal Motor: Normal Distal Sensory: Normal Hip Abductors 5 Trendelenburg test: negative Post Op Left Hip Exam: Leg Length: Longer leg: equal Limb Length discrepancy: 0cm Motion: Flexion contracture: 0 Total degrees of Flexion: 90 Total degrees of Abduction: 40 Total degrees of Ext Rotation: 30 Total degrees of Internal Rotation: 20 Gait Abnormality: Normal Pulses Palpable: Left PT: Yes Left DP: Yes Motor/Sensory: Left Distal Motor: Normal Distal Sensory: Normal Hip Abductors: 5 Trendelenburg test: negative I am unable to reproduce pain with passive examination of her hips bilaterally. X-RAYS: Multiple radiographic views were obtained at my request and reviewed with the patient. X-rays show a well-placed prosthesis with no evidence of fracture, subsidence, loosening, or periprosthetic complication. Stable radiographs, with stable eccentric wear. Questionnaire Responses: [facility] Surgical Postop Visit 10/24/2019 PROMIS-10 General Health Very Good PROMIS-10 Quality of Life Very Good PROMIS-10 Physical Health Very Good PROMIS-10 Mental Health Very Good PROMIS-10 Social Activity Fair PROMIS-10 Everyday Activities Moderately PROMIS-10 Pain 5 PROMIS-10 Fatigue Moderate PROMIS-10 Social Roles Fair PROMIS-10 Anxious or Depressed Rarely PROMIS PHYSICAL HEALTH SCORE 42.3 PROMIS MENTAL HEALTH SCORE 48.3 HOOS JR Scores 61.82 Problems with surgical incision/wound after surgery No Gone to ER since knee surgery Yes Where was ER located? [facility] Date of ER visit 10/21/2014 Reason for ER visit Broken hand Admitted to hospital since recent ortho surgery Yes [facility] Date of admission 10/22/2014 Discharge date 10/24/2014 Reason you went to hospital Surgical repair on left hand Additional surgery on same body part No SHELLEY Grade 7 Pain in other HIP Moderate Back pain at this moment Fairly severe Satisfaction with Treatment Somewhat dissatisfied Choose Same Treatment Again Completely uncertain Orthopeadics [facility] Response 10/24/2019 HOOS JR Scores 61.82 ASES VAS-RIGHT - ASES ADL-RIGHT ARM - ASES RIGHT ARM - OSWESTRY DISABILITY INDEX - Spine [facility] Response 10/24/2019 Oswestry (CHRISTINA) Score - HOOS JR Scores 61.82 ASSESSMENT/PLAN: Ms. Rowley is a 74 y.o. year old female status post bilateral total hip replacement. Doing well postoperatively. Continue weightbearing as tolerated and working on range of motion. We will see her back in 5 years for repeat examination. X-rays will be needed at that time. Patient may return to normal activities as her pain and function allow. We reviewed her history, clinical exam, radiographs. Overall I did provide her reassurance today. Her radiographs show no evidence of periprosthetic lucency, subsidence, or failure. I do not appreciateany interval changes on her radiographs. There is some stable eccentric wear, but otherwise her x-rays are uncomplicated. We discussed that correlating this clinically, I am unable to reproduce pain byexamining her hips that she feels when she is walking. She feels pain which travels and radiates down from her buttock into her thighs and lower extremity. This ceases with rest. I did review her radiographs and spine imaging which she does have severe osteoarthritis of the lumbar spine with near complete intervertebral discs joint space narrowing at the level of L1 - L2. There are also multiple prominent sees on the sagittal view of her spine MRI of the intervertebral disc into the spinal canal which could cause some form of herniation and impingement. I did reassure her hips appear benign and herexam is benign. I recommend pursuing the next discussion with her spine provider after our discussion and evaluation today. She is thankful for today's exam. We discussed the appropriate precautions surrounding dental prophylaxis; according to the AAOS Appropriate Use Criteria we do not recommend antibiotic use prior to dental procedures for Shannan. Recommended antibiotic: N/A If Shannan has any changes in health status we recommend she contact our office prior to dental procedures for updated recommendations We also discussed maintaining good foot care and giving prompt attention to any source of infection throughout the body including foot ulcers and urinary tract infections. All questions were answered. Signed: MELONIE LONGORIA 10/24/2019 documented in this encounter Plan of Treatment Not on filedocumented as of this encounter Visit Diagnoses Diagnosis Status post total replacement of both hi ps documented in this encounter Care Teams Flaker Operator Relationship Specialty Start Date End Date Eitan Nixon MD PCP - General Family Medicine 11/23/17 11/04/[address] [place] [address] documented as of this encounter
--- OUTSIDE RECORDS SUMMARY | 2021-10-07 14:03 | XMS_ITS | Encounter Summary ---
:1945 Author Organization [facility] [place] [address] Care Team Providers Name Role Phone Eitan Nixon MD Primary Care Provider Reason for Visit Reason Onset Date Comments Bumped Appointment 07/01/2019 Encounter Details Date Type Department Care Team Description 07/01/2019 Telephone Orthopaedics at [facility] Jake Weems, Bumped Appointment [facility] [place] [address] [facility] [phone] ORTHOPAEDIC SURG [place], [place] [address] (Wo rk) Social History Tobacco Use Types Packs/Day Years Used Date Former Smoker Cigarettes Smokeless Tobacco: Never Used Comments: 2001 Alcohol Use Standard Drinks/Week Comments No 0 (1 standard drink = 0.6 oz pure alcoho l) Sex Assigned at Date Recorded Not on file documented as of this encounter Miscellaneous Notes Telephone Encounter - Lary Hardy - 07/01/2019 1:16 PM EDT Rescheduled to see Vikas Flores same day Telephone Encounter - Brodie Palacios - 07/01/2019 1:11 PM EDT Caller and relationship to patient (if other than patient): Shannan Rowley Best time to reach caller: anytime, okay to leave a message. Message or Reason for Call: Shannan Rowley returned department call to reschedule her 09/15 appointment. Appt Needed and Reason: XR, Right SHELLEY Pain DOS: 09/30/01 (Shirreffs) Provider: Faustina Telephone Encounter - Vera Ross - 07/01/2019 1:04 PM EDT LM #1 to call to reschedule bumped 09/[address] Weems's clinic- reschedule to Delvin or Dea same day documented in this encounter Plan of Treatment Not on filedocumented as of this encounter Visit Diagnoses Not on filedocumented in this encounter Care Teams Derrick Worker Relationship Specialty Start Date End Date Eitan Nixon MD PCP - General Family Medicine 11/23/17 11/04/[address] [place] [address] documented as of this encounter
--- OUTSIDE RECORDS SUMMARY | 2021-10-07 14:03 | XMS_ITS | Encounter Summary ---
:1945 Author Organization [facility] [place] [address] Care Team Providers Name Role Phone JoelalShania APRN Primary Care Provider Reason for Visit Reason Comments [facility] LEFT SHELLEY: 2002, RIGHT SHELLEY 23 05 Encounter Details Date Type Department Care Team Description 12/12/2016 Office Visit Orthopaedics at [facility] Jake Weems, Pain in left hip [facility] [place] [address] [facility] [phone] DR ORTHOPAEDIC SURG [place], [place] [address] (Wo rk) Social History Tobacco Use Types Packs/Day Years Used Date Former Smoker Cigarettes Smokeless Tobacco: Never Used Comments: 2001 Alcohol Use Standard Drinks/Week Comments No 0 (1 standard drink = 0.6 oz pure alcoho l) Sex Assigned at Date Recorded Not on file documented as of this encounter Last Filed Vital Signs Vital Sign Reading Time Taken Comments Blood Pressure 144/90 12/12/2016 2:11 PM EDT Pulse 73 12/12/2016 2:11 PM EDT Temperature - - Respiratory Rate - - Oxygen Saturation - - Inhaled Oxygen Concentration - - Weight 74.8 kg (165 lb) 12/12/2016 2:11 PM EDT verbal Height 162.6 cm (5' 4) 12/12/2016 2:11 PM EDT verbal Body Mass Index 28.32 12/12/2016 2:11 PM EDT documented in this encounter Progress Notes Guy Rashid PA - 12/12/2016 2:30 PM EDT Arthroplasty/Orthopaedic History: 1. L SHELLEY - 2001 2. R SHELLEY - 2002 HPI: Shannan Rowley is a very pleasant 71 y.o. 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 However, she has been having lateral hip pain that saw improvement with epidural injection for her lower back symptoms. She also has significant weakness the abductors. Patient has to physically carry her leg when she need to move laterally. Painis controlled with current analgesics. Medication(s) being used: narcotic analgesics including hydrocodone/acetaminophen (Lorcet, Lortab, [place], Vicodin).. No fevers, chills, nausea, vomiting, or symptoms of infection. Shannan has been ambulating with a crutche. She is not taking narcotic pain medicine. Patient is been followed for spine related symptoms. She has a follow up appointment s/p epidural injection which she report with benefits ROS: Denies: fever, chills, night sweats, nausea, or vomiting BP 144/90 (BP Location (NBP): Right arm, Patient Position: Sitting, BP Cuff Sizes: Adult (25-34 cm)) Pulse 73 Ht 162.6 cm (5' 4) Comment: verbal Wt 74.8 kg (165 lb) Comment: verbal BMI 28.32 kg/m2 Physical Exam: Well-appearing female in no acute distress. Alert and Oriented x 3 and answers all questions appropriately. The incision is well healed, with no signs of infection. Hip Exam: Left Leg Length: Longer leg: equal Limb Length discrepancy: 0cm Motion: Flexion contracture: 0 Total degrees of Flexion: 105 Total degrees of Abduction: 10 Total degrees of Ext Rotation: 10 Total degrees of Internal Rotation: 5 Gait Abnormality: Normal Pulses Palpable: Left PT: Yes Left DP: Yes Motor/Sensory: Left Distal Motor: Normal Distal Sensory: Normal Hip Abductors: 4 Trendelenburg test: negative X-RAYS: Multiple radiographic views were obtained at my request and reviewed with the patient. X-rays show a well-placed prosthesis with no evidence of fracture, subsidence, loosening, or periprosthetic complication. FINDINGS: There are bilateral total hip arthroplasties. No radiographic evidence of hardware loosening. No periprosthetic fracture or dislocation. Degenerative changes of the sacroiliac joints and pubic symphysis pubis again seen. The sacrum is partly obscured by overlying bowel gas and stool. ?? Questionnaire Responses:[facility] Surgical Postop Visit 12/06/2016 PROMIS-10 General Health Very Good PROMIS-10 Quality of Life Fair PROMIS-10 Physical Health Fair PROMIS-10 Mental Health Good PROMIS-10 Social Activity Fair PROMIS-10 Everyday Activities A little PROMIS-10 Pain 5 PROMIS-10 Fatigue Severe PROMIS-10 Social Roles Fair PROMIS-10 Anxious or Depressed Sometimes PROMIS PHYSICAL HEALTH SCORE 32.4 PROMIS MENTAL HEALTH SCORE 38.8 HOOS JR Scores 76.78 Problems with surgical incision/wound after surgery No Gone to ER since knee surgery No Admitted to hospital since recent ortho surgery No Additional surgery on same body part No SHELLEY Grade 8 Pain in other HIP None Back pain at this moment Fairly severe Satisfaction with Treatment Dissatisfied Choose Same Treatment Again Probably no Orthopeadics [facility] Response 12/06/2016 HOOS JR Scores 76.78 ASES VAS-RIGHT - ASES ADL-RIGHT ARM - ASES RIGHT ARM - OSWESTRY DISABILITY INDEX - Spine [facility] Response 12/06/2016 Oswestry (CHRISTINA) Score - HOOS JR Scores 76.78 ASSESSMENT/PLAN: Ms. Rowley is a 71 y.o. year old female status post left total hip replacement Postoperative course complicated by weakness and pain. Continue weightbearing as tolerated and working on range of motion. We will see her back in 5 years for repeat examination. X-rays will be needed at thattime. Patient may return to normal activities as her pain and function allow. Trochanteric bursa injection offered but patient will wait after appointment with spine All questions were answered. Signed: MELONIE Fagan 12/12/2016 documented in this encounter Plan of Treatment Not on filedocumented as of this encounter Visit Diagnoses Diagnosis Pain in left hip Pain in joint, pelvic region and thigh documented in this encounter Care Teams Sample Maker Original Relationship Specialty Start Date End Date Shania Mcknight APRN PCP - General Internal Medicine 12/28/15 11/22/[address] [place] [id number] (work) documented as of this encounter
--- OUTSIDE RECORDS SUMMARY | 2021-10-07 14:03 | XMS_ITS | Encounter Summary ---
:1945 Author Organization [facility] [place] [address] Care Team Providers Name Role Phone Shania Mcknight TAXI TRUCK DRIVER Primary Care Provider Reason for Visit Reason Comments Low Back Pain Bilateral Leg Pain Bilateral Hip Pain Consultation (Routine) - Closed Specialty Diagnoses / Procedures Referred By Contact Refer red To Contact Orthopaedics Diagnoses Lumbar spinal stenosis, L4-L5 spondylolisthesis/ MRI 10/12/16 & XR 11/30/16 in eD-H Ermias Toth PA McGuire, Kevin J, MD [facility] [place] [address] [place] [address] Phone: Fax: Referral ID Status Reason Start Date Expiration Date Visits V isits Requested Authorized [id number] Closed Consult, 12/02/2016 12/02/2017 1 1 Test & Treat Encounter Details Date Type Department Care Team Description 12/30/2016 Office Visit [facility] Radiculopa thy of lumbar region; Devon Perez MD Spondylolisthesis at L4-L5 level [facility] [address] [place] [facility] [address] [place], [place] [phone] [id number] Social History Tobacco Use Types Packs/Day Years Used Date Former Smoker Cigarettes Smokeless Tobacco: Never Used Comments: 2001 Alcohol Use Standard Drinks/Week Comments No 0 (1 standard drink = 0.6 oz pure alcoho l) Sex Assigned at Date Recorded Not on file documented as of this encounter Progress Notes [facility] MD - 12/30/2016 1:00 PM EDT Images from the original note were not included. MELONIE Peters [facility] [place] [address] [place] [address] Shania Mcknight APRN [address] [place] [address] / [facility] [id number] Dear Colleagues, I had the pleasure of seeing this patient at the [facility] for surgical evaluation. Chief complaint right lower extremity S1 radiculopathy with chronic low back pain Diagnosis 1. L4-5 spondylolisthesis with dynamic motion on flexion extension views obtained on 11/30/2016. 2. L4-5 stenosis with lateral recess stenosis. Duration of symptoms mid-April Prior treatments has been evaluated by neurology seen by pain management [facility] physical therapy greater than 2 months. Imaging MRI done in October 2016 shows L4-5 stenosis with lateral recess stenosis. Reduce spinal listhesis. X-rays including flexion-extension views on 11/30/2016 show dynamic listhesis. Physical examination: Alert and oriented. She has 5 out of 5 strength throughout upper and lower extremities. Except for the right EHL is 4-5. She is using a walker. She complains of significant weakness consistent with a right EHL weakness. No pain with internal rotation of her hips negative straightleg raise. Full range of motion her neck no limited range of motion of her shoulders. Neurology note by Dr. 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 Prognostic factors BMI 28.32 history of DVT Former smoker not on narcotics osteopenia Summary and plan: Is a patient with significant right lower extremity S1 radiculopathy with a dynamic listhesis at L4-5. We stopped about a posterior spinal decompression and fusion L4-5 with possible instrumentation. about the risks of not instrumenting versus the risk of instrumenting. Significant other was present. The risk of spinal fluid leak nonunion adjacent segment degeneration persistentsymptoms need for further operations infection were all discussed in detail. All questions were answered. Sincerely, [facility] MD MS Lighting Fixtures Decorator - Orthopedic Spine Surgery / Spine Center Dinkey Motor Operator - Department of Orthopedic Surgery / [employer] Leather Case Finisher - [facility] 01/02/2017 Spine Center Response Trends Patient-reported scores: myD-H Spine Questionnaire responses 12/10/2013 10/19/2016 11/23/2016 12/06/2016 12/23/2016 VR36 - Physical Function (Range: 0-100) - - - - - VR36 - Bodily Pain (Range: 0-100) - - - - - VR36 - PCS (Range: 0-100) - - - - - VR36 - MCS (Range: 0-100) - - - - - Oswestry Disability Index (Range: 0-100) - 60 (Severe disability) 60 (Severe disability) - 66 (Crippled) PROMIS-10 Physical Health Score 44.9 34.9 32.4 32.4 37.4 PROMIS-10 Mental Health Score 56 48.3 38.8 38.8 33.8 documented in this encounter Plan of Treatment Not on filedocumented as of this encounter Visit Diagnoses Diagnosis Radiculopathy of lumbar region Thoracic or lumbosacral neuritis or radi culitis, unspecified Spondylolisthesis at L4-L5 level documented in this encounter Care Teams Sheet Pile Hammer Operator Relationship Specialty Start Date End Date Shania Mcknight APRN PCP - General Internal Medicine 12/28/15 11/22/17 [address] [place] [address] documented as of this encounter
--- OUTSIDE RECORDS SUMMARY | 2021-10-07 14:04 | XMS_ITS | Encounter Summary ---
:1945 Author Organization [facility] [place] [address] Care Team Providers Name Role Phone Davina Jiménez MD Primary Care Provider Encounter Details Date Type Department Care Team Description 12/01/2010 Hospital Encounter Mammography at [facility], DR CLARIBEL [facility] Davina Gaming MD [address] [place], [place] [address] [place] [address] Social History Tobacco Use Types Packs/Day Years Used Date Never Assessed Sex Assigned at Date Recorded Not on file documented as of this encounter Medications at Time of Discharge Medication Sig Dispensed Refills Start Date End Date Amoxicillin 500 mg Tab 2000MG, PO, 4 tabs 0 12/22 prior to dental work CIS Free Text Med - 325mg, PO, BID 0 12/22/2009 0 12/14/2010 Aspirin metaxalone (SKELAXIN) 800 800mg, PO, Twice 0 12/0312/03/2014 mg tablet daily PRN HYDROCODONE 1 or 2 Tablet(s), 0 12/22/20092010 BIT/ACETAMINOPHEN PO, Q4H PRN (VICODIN ORAL) meloxicam (MOBIC) 15 mg 0 12/22/2009 0 09/17/2012 tablet documented as of this encounter Plan of Treatment Not on filedocumented as of this encounter Procedures Procedure Name Priority Date/Time Associated Diagnosis Comme nts MAMMO SCREENING CAD Routine 12/01/2010 2:16 PM Re sults for this BILATERAL EDT procedure are i n the results section. documented in this encounter Results MAMMO DIGITAL BILATERAL SCREENING WITH CAD (12/01/2010 2:16 PM EDT) Anatomical Region Laterality Modality Breast Bilateral Mammography Specimen (Source) Anatomical Collection Method Collection Time Re ceived Time Location / / Volume Laterality 12/01/2010 2:16 PM EDT Narrative 12/02/2010 10:53 AM EDT Reason for Exam: Screening ?? Technique: Craniocaudal (CC) and Medio-l ateral Oblique (MLO) views of both breasts obtained with direct digital cap ture. The exam was evaluated by CAD version 8. 3.17. ?? Findings: ?? This is a negative mammogram (ACR Catego ry 1). ??There is a stable fibroglandular pattern without significa nt change from prior studies. There is no mammographic evidence of can cer. ??The breasts are of scattered density. ?? CONCLUSION: This is a NEGATIVE mammogram (ACR Catego ry 1). ?? Routine screening mammography is recomme nded with the frequency dependent upon the patient's age and breast cancer risk factors. A letter has been sent to this patient b y the breast imaging center. Procedure Note Quoc Madrigal MD - 12/02/2010Format ting of this note might be different from the original. Reason for Exam: Screening Technique: Craniocaudal (CC) and Medio-l ateral Oblique (MLO) views of both breasts obtained with direct digital cap ture. The exam was evaluated by CAD version 8. 3.17. Findings: This is a negative mammogram (ACR Catego ry 1). There is a stable fibroglandular pattern without significa nt change from prior studies. There is no mammographic evidence of can cer. The breasts are of scattered density. CONCLUSION: This is a NEGATIVE mammogram (ACR Catego ry 1). Routine screening mammography is recomme nded with the frequency dependent upon the patient's age and breast cancer risk factors. A letter has been sent to this patient b y the breast imaging center. Davina Jiménez MD IMG MAMMO ORDERABLES documented in this encounter Visit Diagnoses Not on filedocumented in this encounter Care Teams Evp Marketing Relationship Specialty Start Date End Date Davina Jiménez MD PCP - General 02/23/10 12/27/15 [address] [place] [address] documented as of this encounter
--- OUTSIDE RECORDS SUMMARY | 2021-10-07 14:04 | XMS_ITS | Encounter Summary ---
:1945 Author Organization [facility] [place] [address] Care Team Providers Name Role Phone Davina Jiménez MD Primary Care Provider Encounter Details Date Type Department Care Team Description 05/21/2013 Orders Only Orthopaedics at [facility] Evangelist Au, Right hip pain [facility] (Primary [place]x) [place] [address] ORTHOPAEDIC SURGERY [place] [address] Social History Tobacco Use Types Packs/Day Years Used Date Former Smoker Cigarettes Smokeless Tobacco: Never Used Comments: 2001 Alcohol Use Standard Drinks/Week Comments No 0 (1 standard drink = 0.6 oz pure alcoho l) Sex Assigned at Date Recorded Not on file documented as of this encounter Plan of Treatment Not on filedocumented as of this encounter Results XR pelvis and lateral hip (11/26/2013 3:34 PM EDT) Anatomical Region Laterality Modality Pelvis, Hip N/A Radiographic Imaging Specimen (Source) Anatomical Collection Method Collection Time Re ceived Time Location / / Volume Laterality 11/26/2013 3:34 PM EDT Narrative 11/26/2013 4:06 PM EDT Examination PELVIS+LATERAL HIP/RIGHT Clinical History CONTINUING RIGHT HIP PAIN TN Comparison 12/14/2010 and 10/22/2008. Technique AP pelvis and AP and lateral right hip. Findings Bilateral total hip arthroplasties are n oted. The right hip prostheses is unchanged in position or alignment with no evidence of loosening. There is no acute fracture . Sclerotic change noted at the pubic symphysis. ?? Impression Bilateral total hip arthroplasties with no evidence of complication or loosening. ?? Film and interpretation reviewed by the attending Procedure Note Nathaniel Looney MD - 11/26/2013Formatti ng of this note might be different from the original. Examination PELVIS+LATERAL HIP/RIGHT Clinical History CONTINUING RIGHT HIP PAIN TN Comparison 12/14/2010 and 10/22/2008. Technique AP pelvis and AP and lateral right hip. Findings Bilateral total hip arthroplasties are n oted. The right hip prostheses is unchanged in position or alignment with no evidence of loosening. There is no acute fracture . Sclerotic change noted at the pubic symphysis. Impression Bilateral total hip arthroplasties with no evidence of complication or loosening. Film and interpretation reviewed by the attending Evangelist Au MD IMG DX ORDERABLES documented in this encounter Visit Diagnoses Diagnosis Right hip pain - Primary Pain in joint, pelvic region and thigh Right hip pain Pain in joint, pelvic region and thigh documented in this encounter Care Teams Software Designer Relationship Specialty Start Date End Date Davina Jiménez MD PCP - General 02/23/10 12/27/15 [address] [place] [address] documented as of this encounter
--- OUTSIDE RECORDS SUMMARY | 2021-10-07 14:04 | XMS_ITS | Encounter Summary ---
:1945 Author Organization [facility] [place] [address] Care Team Providers Name Role Phone Davina Jiménze MD Primary Care Provider Encounter Details Date Type Department Care Team Description 05/15/2012 Orders Only Orthopaedics at [facility] Eitan Rdoriguez, Shoulder pain [facility] (Primary Dx) [place] [address] [address] [phone] ORTHOPAEDIC SURGERY [place] [id number] Social History Tobacco Use Types Packs/Day Years Used Date Former Smoker Smokeless Tobacco: Never Used Comments: 2001 Alcohol Use Standard Drinks/Week Comments No 0 (1 standard drink = 0.6 oz pure alcoho l) Sex Assigned at Date Recorded Not on file documented as of this encounter Plan of Treatment Not on filedocumented as of this encounter Results XR shoulder (09/27/2012 11:36 AM EDT) Anatomical Region Laterality Modality Shoulder N/A Radiographic Imaging Specimen (Source) Anatomical Collection Method Collection Time Re ceived Time Location / / Volume Laterality 09/27/2012 11:36 AM EDT Narrative 09/27/2012 2:25 PM EDT Examination SHOULDER COMPLETE/RIGHT Clinical History RT SHOULDER PAIN Comparison None. Technique 4 views right shoulder. Findings No acute fracture or dislocation is iden tified. ??There is mild glenohumeral joint osteoarthropathy with small margin al osteophytes at the inferior humeral head. ??Mild acromioclavicular arthropat hy as well. ??No periarticular soft tissue calcifications. ??Acromiohumeral interval appears fairly well maintained. Impression No fracture or dislocation. Mild acromioclavicular arthropathy and m ild glenohumeral joint osteoarthritis. Procedure Note Nathaniel Looney MD - 09/27/2012Formatti ng of this note might be different from the original. Examination SHOULDER COMPLETE/RIGHT Clinical History RT SHOULDER PAIN Comparison None. Technique 4 views right shoulder. Findings No acute fracture or dislocation is iden tified. There is mild glenohumeral joint osteoarthropathy with small margin al osteophytes at the inferior humeral head. Mild acromioclavicular arthropathy as well. No periarticular soft tissue calcifications. Acromiohumeral in terval appears fairly well maintained. Impression No fracture or dislocation. Mild acromioclavicular arthropathy and m ild glenohumeral joint osteoarthritis. Eitan Rodriguez MD IMG DX ORDERABLES documented in this encounter Visit Diagnoses Diagnosis Shoulder pain - Primary Pain in joint, shoulder region Shoulder pain Pain in joint, shoulder region documented in this encounter Care Teams Supervisor Detasseling Crew Relationship Specialty Start Date End Date Davina Jiménez MD PCP - General 02/23/10 12/27/15 [address] [place] [address] documented as of this encounter
--- OUTSIDE RECORDS SUMMARY | 2021-10-07 14:04 | XMS_ITS | Encounter Summary ---
:1945 Author Organization [facility] [place] [address] Care Team Providers Name Role Phone Davina Jiménez MD Primary Care Provider Encounter Details Date Type Department Care Team Description 12/14/2010 Hospital Encounter [place] [facility] [place] replacement [address] [facility] [place] [address] Social History Tobacco Use Types Packs/Day Years Used Date Former Smoker Smokeless Tobacco: Never Used Comments: 2001 Alcohol Use Standard Drinks/Week Comments No 0 (1 standard drink = 0.6 oz pure alcoho l) Sex Assigned at Date Recorded Not on file documented as of this encounter Medications at Time of Discharge Medication Sig Dispensed Refills Start Date End Date aspirin 81 mg EC tablet Take 81 mg by mouth 0 daily. propranolol (INDERAL) 10 Take 10 mg by mouth 0 mg tablet 2 times daily. hydroCODone-acetaminophen Take 1 tablet by 0 (LORCET) 10-650 mg per mouth every 4 hours. tablet Amoxicillin 500 mg Tab 2000MG, PO, 4 tabs 0 12/22 prior to dental work metaxalone (SKELAXIN) 800 800mg, PO, Twice 0 12/0312/03/2014 mg tablet daily PRN meloxicam (MOBIC) 15 mg 0 12/22/2009 0 09/17/2012 tablet documented as of this encounter Plan of Treatment Not on filedocumented as of this encounter Procedures Procedure Name Priority Date/Time Associated Diagnosis Comme nts XR PELVIS AND Routine 12/14/2010 2:35 PM Hip joint Results for this LATERAL HIP EDT replacement by other procedu re are in means the results section. documented in this encounter Results XR PELVIS AND LATERAL HIP (12/14/2010 2:35 PM EDT) Anatomical Region Laterality Modality Pelvis, Hip N/A Radiographic Imaging Specimen (Source) Anatomical Collection Method Collection Time Re ceived Time Location / / Volume Laterality 12/14/2010 2:35 PM EDT Narrative 12/15/2010 4:48 PM EDT PELVIS AND LEFT HIP: ?? INDICATION: ??Left total hip replacement . Bursitis. ?? TECHNIQUE: ??AP pelvis and lateral view left hip. COMPARISON: ??October 22, 2008. ?? FINDINGS: ??Bilateral total hip arthropl asty in stable alignment. No new or worsening lucencies that would indicate loosening or infection. No evidence of complications. Generalized osteopenia of the pelvis. Procedure Note Shayla Kim MD - 2010 PELVIS AND LEFT HIP: INDICATION: Left total hip replacement. Bursitis. TECHNIQUE: AP pelvis and lateral view le ft hip. COMPARISON: October 22, 2008. FINDINGS: Bilateral total hip arthroplas ty in stable alignment. No new or worsening lucencies that would indicate loosening or infection. No evidence of complications. Generalized osteopenia of the pelvis. Evangelist Au MD IMG DX ORDERABLES documented in this encounter Visit Diagnoses Diagnosis S/P hip replacement Hip joint replacement by other means documented in this encounter Care Teams Police Pilot Relationship Specialty Start Date End Date Davina Jiménez MD PCP - General 02/23/10 12/27/[address] [place] [address] documented as of this encounter
--- OUTSIDE RECORDS SUMMARY | 2021-10-07 14:04 | XMS_ITS | Encounter Summary ---
:1945 Author Organization [facility] [place] [address] Care Team Providers Name Role Phone Davina Jiménez MD Primary Care Provider Encounter Details Date Type Department Care Team Description 11/29/2010 Orders Only Orthopaedics at [facility] Evangelist Au, S/P hip replacement [facility] (Primary [place]x) [place] [address] ORTHOPAEDIC SURGERY [place] [address] Social History Tobacco Use Types Packs/Day Years Used Date Never Assessed Sex Assigned at Date Recorded Not on file documented as of this encounter Plan of Treatment Not on filedocumented as of this encounter Visit Diagnoses Diagnosis S/P hip replacement - Primary Hip joint replacement by other means documented in this encounter Care Teams Associate Loan Officer Relationship Specialty Start Date End Date Davina Jiménez MD PCP - General 02/23/10 12/27/15 [address] [place] [address] documented as of this encounter
--- OUTSIDE RECORDS SUMMARY | 2021-10-07 14:04 | XMS_ITS | Encounter Summary ---
:1945 Author Organization [place] [address] Care Team Providers Name Role Phone Davina Jiménez MD Primary Care Provider Encounter Details Date Type Department Care Team Description 12/17/2012 Hospital Encounter Mammography at [facility], DR CLARIB[facility] Davina Gaming MD [address] [place], [place] [address] [place] [address] Social History Tobacco Use Types Packs/Day [...] Twice 0 12/0312/03/2014 mg tablet daily PRN documented as of this encounter Plan of Treatment Not on filedocumented as of this encounter Procedures Procedure Name Priority Date/Time Associated Diagnosis Comme nts MAMMO SCREENING CAD Routine 12/17/2012 2:47 PM Re sults for this BILATERAL EDT procedure are i n the results section. documented in this encounter Results Mammo digital bilateral Screening with CAD (12/17/2012 2:47 PM EDT) Anatomical Region Laterality Modality Breast Bilateral Mammography Specimen (Source) Anatomical Collection Method Collection Time Re ceived Time Location / / Volume Laterality 12/17/2012 2:47 PM EDT Narrative 12/18/2012 10:25 AM EDT Reason for Exam: Screening ?? [...] y the breast imaging center. Procedure Note Zoya Rangel MD - 12/18/2012 Reason for Exam: Screening Technique: Craniocaudal (CC) [...] on filedocumented in this encounter Care Teams Convention Manager Relationship Specialty Start Date End Date Davina Jiménez MD PCP - General 02/23/10 12/27/15 [address] [place] [address] documented as of this encounter
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
--- OUTSIDE RECORDS SUMMARY | 2021-10-07 14:04 | XMS_ITS | Encounter Summary ---
:1945 Author Organization [facility] [place] [address] Care Team Providers Name Role Phone Davina Jiménez MD Primary Care Provider Encounter Details Date Type Department Care Team Description 12/03/2014 Hospital Encounter XRay at [facility], DR [place] Aftercare following [address] [place] [address] Evangelist Blunt MD [facility] DR ORTHOPAED[place] [address] [place] [id number] Social History Tobacco Use Types Packs/Day Years Used Date Former Smoker Cigarettes Smokeless Tobacco: Never Used Comments: 2001 Alcohol Use Standard Drinks/Week Comments No 0 (1 standard drink = 0.6 oz pure alcoho l) Sex Assigned at Date Recorded Not on file documented as of this encounter Medications at Time of Discharge Medication Sig Dispensed Refills Start Date End Date metaxalone (SKELAXIN) Take 800 mg by mouth 0 800 mg Tablet 3 times daily. aspirin 81 mg EC tablet Take 81 mg by mouth 0 daily. propranolol (INDERAL) 10 Take 10 mg by mouth 2 0 mg tablet times daily. hydroCODone-acetaminophe Take 1 tablet by 0 n (LORCET) 10-650 mg per mouth every 4 hours. tablet Amoxicillin 500 mg Tab 2000MG, PO, 4 tabs 0 12/22 prior to dental work gabapentin (NEURONTIN) Take 400 mg by mouth 0 10/19/2016 100 mg Capsule nightly. Reported on 09/27/2016 documented as of this encounter Plan of Treatment Not on filedocumented as of this encounter Procedures Procedure Name Priority Date/Time Associated Diagnosis Comme nts XR PELVIS AND HIP Routine 12/03/2014 1:50 PM Aftercare followi ng Results for this BILAT (GENERIC) EDT joint replacement procedu re are in the results section. documented in this encounter Results XR Pelvis AP with Bilat Hips min 2 views each (12/03/2014 1:50 PM EDT) Anatomical Region Laterality Modality Pelvis, Hip Bilateral Radiographic Imaging Specimen (Source) Anatomical Collection Method Collection Time Re ceived Time Location / / Volume Laterality 12/03/2014 1:50 PM EDT Impressions 12/03/2014 2:28 PM EDT IMPRESSION: Stable post arthroplasty appearance comp ared to 11/26/2013. Narrative 12/03/2014 2:28 PM EDT EXAMINATION: 1 VIEW PELVIS AND 1 VIEW EACH HIP/BILAT CLINICAL HISTORY: BILAT SHELLEY TECHNIQUE: AP view the pelvis including both hips, as well as a lateral view of each hip. COMPARISON: 11/26/2013. FINDINGS: Bilateral hip arthroplasties a re in unchanged position, with no new or increased periprosthetic lucency. No per iprosthetic fracture identified. No new osseous abnormalities are noted. Procedure Note Lucy Brink MD - 12/03/2014Formatt ing of this note might be different from the original. EXAMINATION: 1 VIEW PELVIS AND 1 VIEW EA CH HIP/BILAT CLINICAL HISTORY: BILAT SHELLEY TECHNIQUE: AP view the pelvis including both hips, as well as a lateral view of each hip. COMPARISON: 11/26/2013. FINDINGS: Bilateral hip arthroplasties a re in unchanged position, with no new or increased periprosthetic lucency. No per iprosthetic fracture identified. No new osseous abnormalities are noted. IMPRESSION IMPRESSION: Stable post arthroplasty appearance comp ared to 11/26/2013. Evangelist Au MD IMG DX ORDERABLES documented in this encounter Visit Diagnoses Diagnosis Aftercare following joint replacement documented in this encounter Care Teams Jewelry Sales Representative Relationship Specialty Start Date End Date Davina Jiménez MD PCP - General 02/23/10 12/27/15 [address] [place] [address] documented as of this encounter
--- OUTSIDE RECORDS SUMMARY | 2021-10-07 14:04 | XMS_ITS | Encounter Summary ---
:1945 Author Organization [facility] [place] [address] Care Team Providers Name Role Phone Davina Jiménez MD Primary Care Provider Reason for Visit Reason Onset Date Comments Reminder Appointment 10/01/2014 Encounter Details Date Type Department Care Team Description 10/01/2014 Telephone [place] [facility] Shelia Osorio Reminder [place] [address] Social History Tobacco Use Types Packs/Day Years Used Date Former Smoker Cigarettes Smokeless Tobacco: Never Used Comments: 2001 Alcohol Use Standard Drinks/Week Comments No 0 (1 standard drink = 0.6 oz pure alcoho l) Sex Assigned at Date Recorded Not on file documented as of this encounter Miscellaneous Notes Telephone Encounter - Cindy Pandya - 10/10/2014 3:34 PM EDT Was not able to contact patient, letter sent. Telephone Encounter - Cindy Pandya - 10/09/2014 9:35 AM EDT I have called and left a 2nd message for patient to call and schedule their reminder appointment. Telephone Encounter - Shelia Stewart - 10/01/2014 11:32 AM EDT Tried calling patient at home number to schedule Reminder Appointment. No answer/no machine documented in this encounter Plan of Treatment Not on filedocumented as of this encounter Visit Diagnoses Not on filedocumented in this encounter Care Teams Pool Finisher Relationship Specialty Start Date End Date Davina Jiménez MD PCP - General 02/23/10 12/27/[address] [place] [address] documented as of this encounter
--- OUTSIDE RECORDS SUMMARY | 2021-10-07 14:04 | XMS_ITS | Encounter Summary ---
:1945 Author Organization [facility] [place] [address] Care Team Providers Name Role Phone Davina Jiménez MD Primary Care Provider Reason for Visit Reason Comments Aftercare Of Tj[facility] sp left sixto dos 2001, right sixto dos 2002 Encounter Details Date Type Department Care Team Description 12/03/2014 Office Visit Orthopaedics at [facility] Tatyana Peck, S/P total hip [facility] PSYCHIATRIC [place] [address] [place] [address] ORTHOPAEDIC SURGERY [place] [address] Social History Tobacco Use Types Packs/Day Years Used Date Former Smoker Cigarettes Smokeless Tobacco: Never Used Comments: 2001 Alcohol Use Standard Drinks/Week Comments No 0 (1 standard drink = 0.6 oz pure alcoho l) Sex Assigned at Date Recorded Not on file documented as of this encounter Last Filed Vital Signs Vital Sign Reading Time Taken Comments Blood Pressure 127/90 12/03/2014 2:50 PM EDT Pulse 70 12/03/2014 2:50 PM EDT Temperature - - Respiratory Rate - - Oxygen Saturation - - Inhaled Oxygen Concentration - - Weight 71.2 kg (157 lb) 12/03/2014 2:50 PM EDT Height 162.6 cm (5' 4) 12/03/2014 2:50 PM EDT stated Body Mass Index 26.95 12/03/2014 2:50 PM EDT documented in this encounter Progress Notes Tatyana Peck APRN - 12/03/2014 2:55 PM EDT Arthroplasty/Orthopaedic History: 1. Right hip SIXTO Dr. Paniagua 09/03/[address] Au LEFT hip SIXTO 12/23/2003 HPI: Shannan Rowley is a very pleasant 69 y.o. year-old female who presents for a approximately 13 years for the Right HIP SIXTO and approximately 11 years s/p LEFT hip SIXTO. The patient has been doing very well and her pain is markedly improved over preoperative status. She has no pain. No interval falls, injuries or infections. No fevers, chills, nausea, vomiting, or symptoms of infection. Shannan has been ambulating with no assistive device and remains very active . 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 She is taking narcotic pain medicine but not for her hips. Her health is reportedly stable otherwise and she is here for a routine rotary appointment. ROS: Denies fever, chills, nausea, vomiting, vision change, shortness of breath, chest pain, vision changes, headaches, bowel or bladder problem, ear, nose, sinus problem, neuro or psychiatric, or endocrine disorder not addressed above. Patient's medications, allergies, past medical, surgical, social and family histories were reviewed and updated as appropriate. Physical Exam: Filed Vitals: 12/03/14 1450 BP: 127/90 Pulse: 70 Height: 162.6 cm (5' 4) Weight: 71.215 kg (157 lb) Body mass index is 26.94 kg/(m^2). Well-appearing female in no acute distress. Alert and Oriented x 3 and answers all questions appropriately. The incision is well healed, with no signs of infection. Hip Exam: Left Leg Length: Longer leg: equal Limb Length discrepancy: 0cm Motion: Flexion contracture: 0 Total degrees of Flexion: 100 Total degrees of Abduction: 15 Total degrees of Ext Rotation: 20 Total degrees of Internal Rotation: 10 Gait Abnormality: Normal Pulses Palpable: Left PT: Yes Left DP: Yes Motor/Sensory: Left Distal Motor: Normal Distal Sensory: Normal Hip Abductors: 5 Trendelenburg test: negative and Hip Exam: Right Leg length: Longer leg: equal Limb Length discrepancy: 0cm Motion: Flexion contracture: 0 Total degrees of Flexion:100 Total degrees of Abduction:20 Total degrees of Ext Rotation: 20 Total degrees of Internal Rotation: 10 Gait Abnormality: Normal Pulses Palpable: Right PT: Yes Right DP:Yes Motor/Sensory: Right Distal Motor: Normal Distal Sensory: Normal Hip Abductors 5 Trendelenburg test: negative X-RAYS: Multiple radiographic views were obtained at my request and reviewed with the patient. X-rays show a well-placed prosthesis with no evidence of fracture, subsidence, loosening, or periprosthetic complication. There are stable subtle lucencies note yet with no significant change from her previous x-rays. Formal report in [facility] as follows: FINDINGS: Bilateral hip arthroplasties are in unchanged position, with no new or increased periprosthetic lucency. No periprosthetic fracture identified. No new osseous abnormalities are noted IMPRESSION: Stable post arthroplasty appearance compared to 11/26/2013. Questionnaire Responses: [facility] K[facility] 12/14/2010 09/27/2012 12/10/2013 MODEMS Expectation - 75 - MODEMS Satisfaction 100 - 66.66 VR12 - Physical Component Summary 59.95 - 42.09 VR12 - Mental Component Summary 28.11 - 66.15 PROMIS-10 General Health - - Very Good PROMIS-10 Quality of Life - - Very Good PROMIS-10 Physical Health - - Very Good PROMIS-10 Mental Health - - Very Good PROMIS-10 Social Activity and Relationship Satisfaction - - Very Good PROMIS-10 Social Roles at Home and Work - - Good PROMIS-10 Everyday Physical Activities - - Mostly PROMIS-10 Anxious or Depressed last 7 days - - Never PROMIS-10 Fatigue last 7 days - - Moderate PROMIS-10 Pain last 7 days - - 6 PROMIS PHYSICAL HEALTH SCORE (range 16-68) - - 44.9 PROMIS MENTAL HEALTH SCORE (range 21-68) - - 56 ASSESSMENT/PLAN: Ms. Rowley is a 69 y.o. year old female s/p above surgical procedures approximately 13 years Right hip SIXTO and approximately 11 years for the LEFT hip SIXTO post-op and doing well. She remains very happy with her hips and continues to feel much better than her pre-op status. Activity precautions to prevent premature implant failure and joint specific exercises reviewed. Given her osteopenia, avoid heavy impact activity. We will see her back in 2 years for repeat examination. She will need both hip X-rays at that time. Patient may return to normal activities as her pain and function allow. We discussed the appropriate precautions surrounding dental prophylaxis and they could call the office for a prescription prior to any dental work for the lifetime of the joint replacement. We also discussed the importance maintaining good foot care and giving prompt attention to any source of infection throughout the body including foot ulcers and urinary tract infections. All questions were answered. Signed: TATYANA PECK APRN 12/03/2014 documented in this encounter Plan of Treatment Not on filedocumented as of this encounter Visit Diagnoses Diagnosis S/P total hip arthroplasty Hip joint replacement by other means documented in this encounter Care Teams Retail Sales Assistant Relationship Specialty Start Date End Date Davina Jiménez MD PCP - General 02/23/10 12/27/15 [address] [place] [address] documented as of this encounter
--- OUTSIDE RECORDS SUMMARY | 2021-10-07 14:04 | XMS_ITS | Encounter Summary ---
:1945 Author Organization [facility] [place] [address] Care Team Providers Name Role Phone Shania Mcknight BRIDGE GAME DIRECTOR Primary Care Provider Encounter Details Date Type Department Care Team Description 09/07/2016 Telephone [facility] [place] [address] Social History Tobacco Use Types Packs/Day Years Used Date Former Smoker Cigarettes Smokeless Tobacco: Never Used Comments: 2001 Alcohol Use Standard Drinks/Week Comments No 0 (1 standard drink = 0.6 oz pure alcoho l) Sex Assigned at Date Recorded Not on file documented as of this encounter Miscellaneous Notes Telephone Encounter - Corazon Epstein COT - 09/12/2016 2:[address] Rockewll no longer at practice Shannan was seen at. LM for Shannan explaining her options are to track him down or estab care here for referral to cover BBs appt. Shannan will see CJL on same day - rescheduled Telephone Encounter - Corazon Epstein COT - 09/08/2016 3:37 PM EDT Per BBS must have a ref from Dr. Rockwell or pt needs to estab care here. LM explaining and asked for return call with decision Telephone Encounter - Corazon Epstein COT - 09/07/2016 4:06 PM EDT 09/05/16-LM for pt to call me to discuss upcoming appt with CHI[facility]. Asked pt to contact primary eye provider and ask for a letter or referral for appt with Aundrea. Pt still traveling and asked if I would be able to do this for her. Gave me provider name and # Dr. Mcclain [phone] Mcclain's office to request above. Told is no longer working there. Left in Mar 2016 and pt has not seen any other provider there. Pt has copies of last CEE in 03/2016 and will bring with her to appt documented in this encounter Plan of Treatment Not on filedocumented as of this encounter Visit Diagnoses Not on filedocumented in this encounter Care Teams Die Stamper Relationship Specialty Start Date End Date Shania Mcknight APRN PCP - General Internal Medicine 12/28/15 11/22/17 [address] [place] [address] documented as of this encounter
--- OUTSIDE RECORDS SUMMARY | 2021-10-07 14:04 | XMS_ITS | Encounter Summary ---
:1945 Author Organization [facility] [place] [address] Care Team Providers Name Role Phone Davina Jiménez MD Primary Care Provider Encounter Details Date Type Department Care Team Description 10/01/2014 Orders Only Orthopaedics at [facility] Evangelist Au, Aftercare following [facility] [place] [address] ORTHOPAEDIC SURGERY [place] [id number] Social History Tobacco Use Types Packs/Day Years Used Date Former Smoker Cigarettes Smokeless Tobacco: Never Used Comments: 2001 Alcohol Use Standard Drinks/Week Comments No 0 (1 standard drink = 0.6 oz pure alcoho l) Sex Assigned at Date Recorded Not on file documented as of this encounter Plan of Treatment Not on filedocumented as of this encounter Results XR Pelvis AP with [...] Visit Diagnoses Diagnosis Aftercare following joint replacement Aftercare following joint replacement documented in this encounter Care Teams Assembling Machine Operator Relationship Specialty Start Date End Date Davina Jiménez MD PCP - General 02/23/10 12/27/15 [address] [place] [address] documented as of this encounter
--- OUTSIDE RECORDS SUMMARY | 2021-10-07 14:04 | XMS_ITS | Encounter Summary ---
:1945 Author Organization [facility] [place] [address] Care Team Providers Name Role Phone Davina Jiménez MD Primary Care Provider Reason for Referral Physical Therapy (Routine) - Complete - Patient Will Schedule External Appt Specialty Diagnoses / Procedures Referred By Contact Refer red To Contact Physical Therapy Diagnoses S/P total hip arthroplasty Status post hip replacement Romi Sarkar PA [facility] [place] [address] Referral ID Status Reason Start Expiration Visits Visits Date Date Requested Authorized [id number] Complete - Evaluate and 12/10/2013 06/08/2014 12 12 Patient Will Treat Schedule External Appt Reason for Visit Reason Comments Right Hip Pain Encounter Details Date Type Department Care Team Description 12/10/2013 Office Visit Orthopaedics at [facility] Evangelist Au Status post hip replacement (Primary Dx); [facility] MD Alyx S/P [place] [address] CENTER [phone] [place], [place] [address] Social History Tobacco Use Types Packs/Day Years Used Date Former Smoker Cigarettes Smokeless Tobacco: Never Used Comments: 2001 Alcohol Use Standard Drinks/Week Comments No 0 (1 standard drink = 0.6 oz pure alcoho l) Sex Assigned at Date Recorded Not on file documented as of this encounter Last Filed Vital Signs Vital Sign Reading Time Taken Comments Blood Pressure 124/81 12/10/2013 3:38 PM EDT Pulse 70 12/10/2013 3:38 PM EDT Temperature - - Respiratory Rate - - Oxygen Saturation - - Inhaled Oxygen Concentration - - Weight 69.4 kg (153 lb) 12/10/2013 3:38 PM EDT Height 162.6 cm (5' 4) 12/10/2013 3:38 PM EDT Body Mass Index 26.26 12/10/2013 3:38 PM EDT documented in this encounter Progress Notes Romi Sarkar PA - 12/10/2013 4:27 PM EDT Date of Visit: 12/10/13 Staff: Dr. Au CC: Right hip pain- lateral HPI: this is a 68 y.o. Female who is s/p right SHELLEY in 2001. Overall she has done well with the hip, but has struggled in the past with trochanteric bursitis. She made this appt because she was struggling with lateral pain about the right hip that was worse if she rolled on that side. She can reproducepain with palpation. This pain started early this past winter. Denies fever or chills. Denies groin p ain. Today she states her pain has actually resolved. Exam: Alert and oriented x 3. NAD Pain with palpation lateral over trochanter right Right hip ROM full and painless. Pain lateral with adduction. 2+ pedal pulses. Sensation distal intact. XRAY: Films reviewed in clinic. No fracture or dislocation. No change in implant position. A/P: trochanteric bursitis right hip Encouraged use of regular nsaids at a dose increased from her TID 200 mg. I additionally gave her areferral for formal PT with modalities. She continues to be very active with a personal injury attorney. Follow up in 1 year to resume regular follow up for bilateral SHELLEY. Xray done at that time of both hips. documented in this encounter Plan of Treatment Scheduled Referrals Name Type Priority Associated Diagnoses Order S chedule Referral to Outpatient Referral Routine S/P total hip Ordered : Physical Therapy arthroplasty 12/10/2013 Status post hip replacement documented as of this encounter Visit Diagnoses Diagnosis Status post hip replacement - Primary Hip joint replacement by other means S/P total hip arthroplasty Hip joint replacement by other means documented in this encounter Care Teams Clinical Research Associate Relationship Specialty Start Date End Date Davina Jiménez MD PCP - General 02/23/10 12/27/[address] [place] [address] documented as of this encounter
--- OUTSIDE RECORDS SUMMARY | 2021-10-07 14:04 | XMS_ITS | Encounter Summary ---
:1945 Author Organization [facility] [place] [address] Care Team Providers Name Role Phone Davina Jiménez MD Primary Care Provider Reason for Visit Reason Comments Eye Problem Dr. Davina Alonzo sent uzma ent for evaluation of neuro vs muscular Encounter Details Date Type Department Care Team Description 09/17/2012 Office Visit Ophthalmology at [facility] C Davina Finney, Fourth nerve palsy (Primary Dx); [facility] [place] [address] CENTER [phone] O[address] 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 Will check ACRA as she may consider surgery and has no bilateral ptosis. Will trial orthoptics/Fresnel prism, especially for symptomatic reading in reading spectacles. She has mild cataracts but corrects to 20/20 OU. documented in this encounter Plan of Treatment Not on filedocumented as of this encounter Procedures Procedure Name Priority Date/Time Associated Comments Diagnosis ACETYLCHOLINE RECEPTOR Routine 09/17/2012 2:50 PM Fourth nerve palsy Results for this AB BINDING EDT procedure are i n the results section. documented in this encounter Results Acetylcholine Receptor Ab Binding (09/17/2012 2:50 PM EDT) athologist Signature ACHr Binding 0.00 <=0.02 CERNER Ab nmol/L MILLENNIUM Comment: Test Performed by: [place] [address] Lasting Floorworker: Jeovany arias III, M.D. 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
--- OUTSIDE RECORDS SUMMARY | 2021-10-07 14:04 | XMS_ITS | Encounter Summary ---
:1945 Author Organization [place] [address] Care Team Providers Name Role Phone Davina Jiménez MD Primary Care Provider Encounter Details Date Type Department Care Team Description 11/08/2011 Hospital Encounter Mammography at [facility], DR CLARIBEL [facility] Davina Gaming MD [address] [place], [place] [id number] [place] [address] Social History Tobacco Use Types Packs/Day [...] Diagnosis Comme nts MAMMO SCREENING CAD Routine 11/08/2011 2:20 PM Re sults for this BILATERAL EDT procedure are i n the results section. documented in this encounter Results MAMMO DIGITAL BILATERAL SCREENING WITH CAD (11/08/2011 2:20 PM EDT) Anatomical Region Laterality Modality Breast Bilateral Mammography Specimen (Source) Anatomical Collection Method Collection Time Re ceived Time Location / / Volume Laterality 11/08/2011 2:20 PM EDT Narrative 11/11/2011 8:15 AM EDT BILATERAL MAMMOGRAPHY ?? REASON FOR EXAM: Screening ?? TECHNIQUE: Cranio-caudal (CC) and mediol ateral oblique (MLO) views of both breasts obtained with direct digital cap ture. The exam was evaluated by CAD Version 8.3.17. ?? FINDINGS: This is a benign mammogram (AC R Category 2). There has been no change in the fibroglandular pattern of the poonam asts. 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 There is no mammographic evidence of cancer. ? The breasts are of scattered density. ? CONCLUSION ?? BENIGN mammogram (ACR Category 2). Routi ne screening mammography is recommended with the frequency dependent on the uzma ent's age and breast cancer risk factors. ?? A letter has been sent to this patient [facility]. Procedure Note Ainsley Vegas MD - 11/11/2011 BILATERAL MAMMOGRAPHY REASON FOR EXAM: Screening TECHNIQUE: Cranio-caudal (CC) and mediol ateral oblique (MLO) views of both breasts obtained with direct digital cap ture. The exam was evaluated by CAD Version 8.3.17. FINDINGS: This is a benign mammogram (AC R Category 2). There has been no change in the fibroglandular pattern of the poonam asts. 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 There is no mammographic evidence of cancer. The breasts are of scattered density. CONCLUSION BENIGN mammogram (ACR Category 2). Routi ne screening mammography is recommended with the frequency dependent on the uzma ent's age and breast cancer risk factors. A letter has been sent to this patient b [facility]. Dvaina Jiménez MD IMG MAMMO ORDERABLES documented in this encounter Visit Diagnoses Not on filedocumented in this encounter Care Teams Automobile Brake Bonder Relationship Specialty Start Date End Date Davina Jiménez MD PCP - General 02/23/10 12/27/15 [address] [place] [address] documented as of this encounter
--- OUTSIDE RECORDS SUMMARY | 2021-10-07 14:04 | XMS_ITS | Encounter Summary ---
:1945 Author Organization [facility] [place] [address] Care Team Providers Name Role Phone Davina Jiménez MD Primary Care Provider Reason for Visit Reason Onset Date Comments Reminder Appointment 10/22/2014 Encounter Details Date Type Department Care Team Description 10/22/2014 Telephone Orthopaedics at [facility] Radu Ellington MD Reminder Appointment [facility] [place] [address] ORTHOPAEDIC SURG [place] [id number] (Wo rk) Social History Tobacco Use Types Packs/Day Years Used Date Former Smoker Cigarettes Smokeless Tobacco: Never Used Comments: 2001 Alcohol Use Standard Drinks/Week Comments No 0 (1 standard drink = 0.6 oz pure alcoho l) Sex Assigned at Date Recorded Not on file documented as of this encounter Miscellaneous Notes Telephone Encounter - Cecelia Almeida - 10/22/2014 12:15 PM EDT Spoke with Patient and scheduled. documented in this encounter Plan of Treatment Not on filedocumented as of this encounter Visit Diagnoses Not on filedocumented in this encounter Care Teams Balance Engineer Relationship Specialty Start Date End Date Davina Jiménez MD PCP - General 02/23/10 12/27/15 [address] [place] [address] documented as of this encounter
--- OUTSIDE RECORDS SUMMARY | 2021-10-07 14:04 | XMS_ITS | Encounter Summary ---
:1945 Author Organization [facility] [place] [address] Care Team Providers Name Role Phone Davina Jiménez MD Primary Care Provider Reason for Visit Reason Comments Strabismus Orthoptic follow up Encounter Details Date Type Department Care Team Description 11/19/2014 Follow-Up Ophthalmology at [facility] Cheli Sanchez, Hypertropia of right eye; [facility] AMBER [place] Superior oblique palsy, [place] [address] Social History Tobacco Use Types Packs/Day Years Used Date Former Smoker Cigarettes Smokeless Tobacco: Never Used Comments: 2001 Alcohol Use Standard Drinks/Week Comments No 0 (1 standard drink = 0.6 oz pure alcoho l) Sex Assigned at Date Recorded Not on file documented as of this encounter Progress Notes Aundrea Sanchez CO - 12/05/2014 6:09 PM EDT Orthoptic follow up note: Shannan returned all three pairs of glasses with Fresnel prisms on right. Difficult wearing, feeling unbalanced. Concerned prisms may be placed incorrectly. Prisms are in the correct direction, base down right eye on all three. It is possible the amount is overcorrecting. Replaced prisms and returned to patient by mail. 1.Readers +3.00 +0.75 x 14 with 3 BD Fresnel OD +3.00 +0.25 x 150 with 3 BU incorporated 2. Bifocal ( in vera tristan case) +0.50 +1.00 x 10 with 5 BD Fresnel OD +0.50 +0.50 x 35 /add +2.00 3. 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 She is without diplopia however she feels relief from ocular fatigue when wearing Fresnel prisms. Fresnel prisms were applied to current Readers, bifocals and sunglasses. Shannan is a good candidate for incorporated prisms due to the absence of diplopia/an exact end pointnot required. Fresnel prisms: Readers 6 BD OD Bifocal 7 BD OD Sunglasses 8 BD OD Plan: Regular eye care with Dr. Rockwell. Return to Orthoptics prn. documented in this encounter Plan of Treatment Not on filedocumented as of this encounter Procedures Procedure Name Priority Date/Time Associated Diagnosis Comme nts SENSORIMOTOR EXAM Routine 11/20/2014 9:51 AM Hypertropia of ri ght Results for this EDT eye procedure are in Superior oblique the results palsy, right section. 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
--- OUTSIDE RECORDS SUMMARY | 2021-10-07 14:04 | XMS_ITS | Encounter Summary ---
:1945 Author Organization [facility] [place] [address] Care Team Providers Name Role Phone Davina Jiménez MD Primary Care Provider Encounter Details Date Type Department Care Team Description 09/27/2012 Hospital Encounter XRay at [facility] Shoulder pain [address] [place] [address] [place] [address] Social History Tobacco Use Types Packs/Day [...] Priority Date/Time Associated Diagnosis Comme nts XR SHOULDER Routine 09/27/2012 11:36 AM Shoulder pain Results for this EDT procedure are i n the results section . documented in this encounter Results XR shoulder (09/27/2012 11:36 [...] this encounter Visit Diagnoses Diagnosis Shoulder pain Pain in joint, shoulder region documented in this encounter Care Teams Roll Former Relationship Specialty Start Date End Date Davina Jiménez MD PCP - General 02/23/10 12/27/[address] [place] [address] documented as of this encounter
--- OUTSIDE RECORDS SUMMARY | 2021-10-07 14:04 | XMS_ITS | Encounter Summary ---
:1945 Author Organization [facility] [place] [address] Care Team Providers Name Role Phone Davina Jiménez MD Primary Care Provider Reason for Visit Reason Onset Date Comments Questions 08/12/2014 Encounter Details Date Type Department Care Team Description 08/12/2014 Telephone Ophthalmology at [facility] C Aundrea Sanchez, Questions [facility] [place] [address] Social History Tobacco Use Types Packs/Day Years Used Date Former Smoker Cigarettes Smokeless Tobacco: Never Used Comments: 2001 Alcohol Use Standard Drinks/Week Comments No 0 (1 standard drink = 0.6 oz pure alcoho l) Sex Assigned at Date Recorded Not on file documented as of this encounter Miscellaneous Notes Telephone Encounter - Donna Husain - 08/13/2014 11:41 AM EDT I called today to let Shannan know that i will be happy to schedule her in October for [place] as soon as Iget the Notes from [place] Telephone Encounter - Donna Husain - 08/12/2014 7:54 AM EDT I called her today to set up her appt. For October and she wanted to let you know that she had a CEE down in [place] this month. I have asked her to have them send us the notes, to review. She only wants an appt. with you. documented in this encounter Plan of Treatment Not on filedocumented as of this encounter Visit Diagnoses Not on filedocumented in this encounter Care Teams Application Support Technician Relationship Specialty Start Date End Date Davina Jiménez MD PCP - General 02/23/10 12/27/[address] [place] [address] documented as of this encounter
--- OUTSIDE RECORDS SUMMARY | 2021-10-07 14:04 | XMS_ITS | Encounter Summary ---
:1945 Author Organization [facility] [place] [address] Care Team Providers Name Role Phone Davina Jiménez MD Primary Care Provider Reason for Referral Consultation (Routine) - Closed Specialty Diagnoses / Procedures Referred By Contact Refer red To Contact Neurology Diagnoses Bilateral hand numbness Timoteo Blakely PA [facility] Neurology 3c [facility] D [facility] [place] [address] [place] [address] Referral ID Status Reason Start Date Expiration Date Visits V isits Requested Authorized [id number] Closed Consult & 09/27/2012 03/26/2013 1 1 Test Reason for Visit Reason Comments Right Shoulder Pain Encounter Details Date Type Department Care Team Description 09/27/2012 Office Visit Orthopaedics at [facility] Eitan Rodriguez, Shoulder pain, bilateral (Pr imary Dx); [facility] [place] [address] CENTER [phone] ORTHOPAEDIC SURGERY [place] [address] Social History Tobacco Use Types Packs/Day Years Used Date Former Smoker Cigarettes Smokeless Tobacco: Never Used Comments: 2001 Alcohol Use Standard Drinks/Week Comments No 0 (1 standard drink = 0.6 oz pure alcoho l) Sex Assigned at Date Recorded Not on file documented as of this encounter Last Filed Vital Signs Vital Sign Reading Time Taken Comments Blood Pressure 122/84 09/27/2012 1:19 PM EDT Pulse 84 09/27/2012 1:19 PM EDT Temperature - - Respiratory Rate - - Oxygen Saturation - - Inhaled Oxygen Concentration - - Weight - - Height - - Body Mass Index - - documented in this encounter Progress Notes Timoteo Blakely PA - 09/27/2012 2:04 PM EDT HISTORY: Shannan presents for evaluation of her right shoulder rotator cuff tear with history of bilateral rotator cuff tears with excellent range of motion and occasional transient discomfort, but for the most part, she would say for the vast majority of her time, she is completely pain-free and able to conduct all of her activities of daily living, but occasionally, she will put her arm into a certain position and feel a severe, significant pain in her shoulders that once started takes several weeks to resolve. She cannot specifically show me what position this is, she tells me it can be different depending on her activities. She tells me that it most recently occurred, when she was doing some training with the therapist and she was in a weightbearing position doing flies. She denies paresthesia, nausea, vomiting, numbness, or tingling. She is otherwise quite active. She spends six months of the year here in [place] and six months in [place]. 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 She is here to discuss the nature of her discomfort and possible treatment options and whether or not there is some loose body or debris floating in her shoulder that is causing her discomfort. This problem does not interfere/prevent ADL's . (Dressing, Eating, Ambulating, Toileting and Hygiene) or IADL's (Shopping, Housekeeping, Accounting, Food preparation and Transportation) Current Outpatient Prescriptions on File Prior to Visit Medication Sig Dispense Refill ??? aspirin 81 mg EC tablet Take 81 mg by mouth daily. ??? propranolol (INDERAL) 10 mg tablet Take 10 mg by mouth 2 times daily. ??? hydroCODone-acetaminophen (LORCET) 10-650 mg per tablet Take 1 tablet by mouth every 6 hours as needed. ??? metaxalone (SKELAXIN) 800 mg tablet 800mg, PO, Twice daily PRN ??? Amoxicillin 500 mg Tab 2000MG, PO, 4 tabs prior to dental work Allergies Allergen Reactions ??? Celecoxib Rash Rash ??? Fentanyl Nausea And Vomiting Nausea/Vomiting ??? Oxycodone-Acetaminophen Nausea And Vomiting Nausea/Vomiting Patient Active Problem List Diagnoses Code ??? Fourth nerve palsy 378.53 ??? Cataract 366.9 ??? Shoulder pain, bilateral 719.41 ??? Bilateral hand numbness 782.0 Past Surgical History Procedure Date ??? Cranio/maxillofacial surg unlisted ??? Musculoskeletal surgery unlisted History Social History ??? Marital Status: Single Spouse Name: N/A Number of Children: N/A ??? Years of Education: N/A Occupational History ??? Not on file. Social History Main Topics ??? Smoking status: Former Smoker Types: Cigarettes ??? Smokeless tobacco: Never Used Comment: 2001 ??? Alcohol Use: No ??? Drug Use: No ??? Sexually Active: Not on file Other Topics Concern ??? Exercise: Patient Reported Yes ??? Abuse Or Threat: Physical, Sexual, Verbal No Social History Narrative ??? No narrative on file Family History Problem Relation Age of Onset ??? Adopted: Yes Denies fever, chills, nausea, vomiting, vision change, shortness of breath, chest pain, vision changes, headaches, bowel or bladder problem, ear, nose, sinus problem, neuro or psychiatric, or endocrinedisorder not addressed above. HEENT - normocephalic, atraumatic, sclera clear, nose patent and throat clear. c-spine with good andfull ROM c-spine ROM does not affect shoulder comfort PHYSICAL EXAMINATION: Shannan is awake, alert, and oriented x3, in no acute distress, resting comfortably in the exam room. Pleasant woman with an appropriate affect and demeanor for today's visit. She is afebrile and hemodynamically stable. Affect and demeanor are appropriate for today's visit. Her shoulders are benign. She has an excellent range of motion to forward elevation and abduction. Internal rotation is essentially full. She has weakness to the rotator cuff, especially with external rotation. She also has positive empty can. She has no biceps tendon on the right that ruptured sometime ago. She is sensate and well perfused. She has no pain with this examination. Her internal rotation is easily to T10. Lift-off and lag are negative. External rotation is easily to 80 degrees symmetrically. DIAGNOSTIC DATA: Her imaging studies, she has MRIs and reports from outside hospital that show torn rotator cuff bilaterally with atrophy and she has absolutely no interest in any type of surgical procedure. She is more here on fact finding than surgical seeking. These were reviewed. No evidence of loose body or other issue. ASSESSMENT: Bilateral rotator cuff tears, right more problematic than left secondary to an occasional transient pain in the shoulder, and I would think that this is probably attributable to perhaps some mild bursal impingement as she demonstrates that her arm is usually abducted and forward elevated with some external rotation when she has the discomfort, which would be quite common especially when lies in a supine position. She understands the nature of her complaint and her treatment options. We did discuss possible therapy, anti-inflammatories, cortisone injections, possibly surgical for shoulder arthroscopy for limited goals to debridement. She would like to treat this conservatively, which is absolutely fine since she is otherwise doing quite well. We will see her on an as-needed basis moving forward. Her questions today are solicited and answered. documented in this encounter Plan of Treatment Scheduled Referrals Name Type Priority Associated Diagnoses Order S chedule Referral to Outpatient Referral Routine Bilateral hand Ordere d: Neurology numbness 09/27/2012 documented as of this encounter Visit Diagnoses Diagnosis Shoulder pain, bilateral - Primary Pain in joint, shoulder region Bilateral hand numbness Disturbance of skin sensation documented in this encounter Care Teams Mortgage Processing Manager Relationship Specialty Start Date End Date Davina Jiménez MD PCP - General 02/23/10 12/27/[address] [place] [address] documented as of this encounter
--- OUTSIDE RECORDS SUMMARY | 2021-10-07 14:04 | XMS_ITS | Encounter Summary ---
:1945 Author Organization [facility] [address] Care Team Providers Name Role Phone Davina Jiménez MD Primary Care Provider Encounter Details Date Type Department Care Team Description 11/26/2013 Hospital Encounter XRay at [facility], DR [place] Right hip pain [address] [place] [address] Evangelist Blunt MD [facility] [place] [address] [place] [address] Social History Tobacco Use Types Packs/Day [...] Diagnosis Comme nts XR PELVIS AND Routine 11/26/2013 3:34 PM Right hip pain Result s for this LATERAL HIP EDT procedure are i n the results section. documented in this encounter Results XR pelvis and lateral [...] thigh documented in this encounter Care Teams Birth Attendant Relationship Specialty Start Date End Date Davina Jiménez MD PCP - General 02/23/10 12/27/15 [address] [place] [address] documented as of this encounter
--- OUTSIDE RECORDS SUMMARY | 2021-10-07 14:04 | XMS_ITS | Encounter Summary ---
:1945 Author Organization [facility] [place] [address] Care Team Providers Name Role Phone Davina Jiménez MD Primary Care Provider Reason for Visit Reason Comments Strabismus Orthoptic f/u Encounter Details Date Type Department Care Team Description 11/14/2012 Follow-Up Ophthalmology at [facility] Cheli Sanchez Strabismus (Primary Dx) [facility] [place] [address] Social History Tobacco Use Types Packs/Day Years Used Date Former Smoker Cigarettes Smokeless Tobacco: Never Used Comments: 2001 Alcohol Use Standard Drinks/Week Comments No 0 (1 standard drink = 0.6 oz pure alcoho l) Sex Assigned at Date Recorded Not on file documented as of this encounter Progress Notes Aundrea Sanchez CO - 11/15/2012 11:10 AM EDT The 5 prism diopter Fresnel prism was removed (& reserved) and replaced with a 6 BD OD. Also, an 8 prism diopter Fresnel was placed on the right lens of sunglasses for driving. documented in this encounter Plan of Treatment Not on filedocumented as of this encounter Procedures Procedure Name Priority Date/Time Associated Diagnosis Comme nts SENSORIMOTOR EXAM Routine 11/16/2012 10:44 AM Strabismus Res ults for this EDT procedure are i n the results section. documented in this encounter Results SENSORIMOTOR EXAM [CA SPECIAL EYE EXAM] - OU- BOTH EYES (11/16/2012 10:44 AM EDT) Anatomical Region Laterality Modality Other Specimen (Source) Anatomical Location Collection Method / Collectio n Time Received Time / Laterality Volume Narrative 11/16/2012 10:44 AM EDT See orthoptic note Procedure Note Aundrea Sanchez CO - 11/16/2012For matting of this note might be different from the original. See orthoptic note Davina Finney MD OPHTHALMOLOGY SERVICES ORDER [place]ASHAWN documented in this encounter Visit Diagnoses Diagnosis Strabismus - Primary Unspecified disorder of eye movements documented in this encounter Care Teams Research And Development Technician Relationship Specialty Start Date End Date Davina Jiménez MD PCP - General 02/23/10 12/27/15 [address] [place] [address] documented as of this encounter
--- OUTSIDE RECORDS SUMMARY | 2021-10-07 14:04 | XMS_ITS | Encounter Summary ---
:1945 Author Organization [facility] [place] [address] Care Team Providers Name Role Phone Davina Jiménez MD Primary Care Provider Encounter Details Date Type Department Care Team Description 12/10/2013 Hospital Encounter Mammography at [facility], DR CLARIBEL [facility] Davina Gaming MD [address] [place], [place] [address] [place] [address] Social History Tobacco Use Types Packs/Day [...] 100 mg Capsule nightly. Reported on 09/27/2016 metaxalone (SKELAXIN) 800mg, PO, Twice 0 12/23/19 10 12/03/2014 800 mg tablet daily PRN documented as of this encounter Plan of Treatment Not on filedocumented as of this encounter Procedures Procedure Name Priority Date/Time Associated Diagnosis Comme nts MAMMO SCREENING CAD Routine 12/10/2013 3:01 PM Re sults for this BILATERAL EDT procedure are i n the results section. documented in this encounter Results Mammo digital bilateral Screening with CAD (12/10/2013 3:01 PM EDT) Anatomical Region Laterality Modality Breast Bilateral Mammography Specimen (Source) Anatomical Collection Method Collection Time Re ceived Time Location / / Volume Laterality 12/10/2013 3:01 PM EDT Narrative 12/11/2013 10:52 AM EDT Reason for Exam: Screening Technique: Craniocaudal (CC) and Medio-l ateral Oblique (MLO) views of both breasts obtained with direct digital cap ture. The exam was evaluated by CAD version 8. 3.17. Findings: This is a negative mammogram (ACR Catego ry 1). There is a stable fibroglandular pattern without significant change from prior studies. 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 There is no mammographic evidence of can cer. The breasts are of scattered density. CONCLUSION: This is a NEGATIVE mammogram (ACR Catego ry 1). Routine screening mammography is recomme nded with the frequency dependent upon the patients age and breast cancer risk factors. A letter has been sent to this patient b y the breast imaging center. Procedure Note Ainsley Vegas MD - 12/11/2013 Reason for Exam: Screening Technique: Craniocaudal (CC) and Medio-l ateral Oblique (MLO) views of both breasts obtained with direct digital cap ture. The exam was evaluated by CAD version 8. 3.17. Findings: This is a negative mammogram (ACR Catego ry 1). There is a stable fibroglandular pattern without significant change from prior studies. 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 There is no mammographic evidence of can cer. The breasts are of scattered density. CONCLUSION: This is a NEGATIVE mammogram (ACR Catego ry 1). Routine screening mammography is recomme nded with the frequency dependent upon the patients age and breast cancer risk factors. A letter has been sent to this patient b y the breast imaging center. Davina Jiménez MD IMG MAMMO ORDERABLES documented in this encounter Visit Diagnoses Not on filedocumented in this encounter Care Teams Sales Representative Consultant Relationship Specialty Start Date End Date Davina Jiménez MD PCP - General 02/23/10 12/27/15 [address] [place] [address] documented as of this encounter
--- OUTSIDE RECORDS SUMMARY | 2021-10-07 14:04 | XMS_ITS | Encounter Summary ---
:1945 Author Organization [facility] Address [address] [place] [address] Care Team Providers Name Role Phone Shania Mcknight APRN Primary Care Provider Encounter Details Date Type Department Care Team Description 12/28/2015 Hospital Encounter Mammography at [facility] Jefferson Harris Encounter for [facility] MD Chris screening mammogram Drive [address] [place] [address] for malignant [place], [place] [address] neoplasm of breast [id number] [place], [place] [phone] [address] Social History Tobacco Use Types Packs/Day Years [...] Diagnosis Comme nts MAMMO SCREENING CAD Routine 12/28/2015 12:51 PM Encounter for Results for this AND TERRY BILATERAL EDT screening mammogram pr ocedure are in for malignant the results neoplasm of breast section. documented in this encounter Results Mammo Digital Bilateral Screening With CAD and Tomosynthesis (12/28/2015 12:51 PM EDT) Anatomical Region Laterality Modality Breast Bilateral Mammography Specimen (Source) Anatomical Location Collection Method / Collectio n Time Received Time / Laterality Volume Narrative 12/29/2015 11:04 AM EDT BILATERAL MAMMOGRAPHY REASON FOR EXAM: Screening [...] No mammographic evidence of malignancy. RECOMMENDATION: [employer] and The Society of [...] Breast Imaging Center. BIRADS CATEGORY 1: NEGATIVE Jefferson Harris MD IMG MAMMO ORDERABLES documented in this encounter Visit Diagnoses Diagnosis Encounter for screening mammogram for ma lignant neoplasm of breast Other screening mammogram documented in this encounter Care Teams Financial Systems Analyst Relationship Specialty Start Date End Date Shania Mcknight APRN PCP - General Internal Medicine 12/28/15 11/22/17 [address] [address] documented as of this encounter
--- OUTSIDE RECORDS SUMMARY | 2021-10-07 14:04 | XMS_ITS | Encounter Summary ---
:1945 Author Organization [facility] [place] [address] Care Team Providers Name Role Phone Davina Jiménez MD Primary Care Provider Reason for Visit Reason Onset Date Comments Questions 08/08/2014 Encounter Details Date Type Department Care Team Description 08/08/2014 Telephone Ophthalmology at [facility] C Aundrea Sanchez, Questions [facility] [place] [address] Social History Tobacco Use Types Packs/Day Years Used Date Former Smoker Cigarettes Smokeless Tobacco: Never Used Comments: 2001 Alcohol Use Standard Drinks/Week Comments No 0 (1 standard drink = 0.6 oz pure alcoho l) Sex Assigned at Date Recorded Not on file documented as of this encounter Miscellaneous Notes Telephone Encounter - Donna Husain - 08/08/2014 10:16 AM EDT She is in [place] and would like new prisms for a pair of glasses she just had made. She call yesterday and [facility]ira has returned her call and told her she should have someone down there look at them to be sure. documented in this encounter Plan of Treatment Not on filedocumented as of this encounter Visit Diagnoses Not on filedocumented in this encounter Care Teams Rn Ccu Relationship Specialty Start Date End Date Davina Jiménez MD PCP - General 02/23/10 12/27/15 [address] [place] [address] documented as of this encounter
--- OUTSIDE RECORDS SUMMARY | 2021-10-07 14:04 | XMS_ITS | Encounter Summary ---
:1945 Author Organization [facility] [place] [address] Care Team Providers Name Role Phone Davina Jiménez MD Primary Care Provider Encounter Details Date Type Department Care Team Description 12/03/2014 Hospital Encounter Mammography at [facility], DR CLARIBEL [facility] Davina Gaming MD [address] [place], [place] [address] [place] [address] Social History Tobacco Use Types Packs/Day [...] Priority Date/Time Associated Diagnosis Comme nts MAMMO 2D DIGITAL Routine 12/03/2014 3:41 PM Resul ts for this SCREEN TITI EDT procedure are i n BILATERAL the results section. documented in this encounter Results Mammo Screen Titi 2D Bilateral (12/03/2014 3:41 PM EDT) Anatomical Region Laterality Modality Breast Bilateral Mammography Specimen (Source) Anatomical Collection Method Collection Time Re ceived Time Location / / Volume Laterality 12/03/2014 3:41 PM EDT Narrative 12/04/2014 10:21 AM EDT Reason for Exam: Screening ?? Technique: Craniocaudal (CC) and Medio-l ateral Oblique (MLO) views of both breasts obtained with direct digital cap ture. In addition to routine 2-D imaging, this exam was also performed wi th 3-D Tomographic Imaging (MLO and CC). ?? The exam was evaluated by CAD version 8. 3.17. ?? Findings: ?? This is a negative mammogram (ACR Catego ry 1). There is a stable fibroglandular pattern without significant change from prior studies. There is no mammographic evidence of can cer. The breasts are of scattered density. ?? CONCLUSION: This is a NEGATIVE mammogram (ACR Catego ry 1). ?? Routine screening mammography is recomme nded with the frequency dependent upon the patient's age and breast cancer risk factors. A letter has been sent to this patient b y the breast imaging center. ?? Procedure Note Maria D Leblanc MD - 12/04/2014Form atting of this note might be different from the original. Reason for Exam: Screening Technique: Craniocaudal (CC) and Medio-l ateral Oblique (MLO) views of both breasts obtained with direct digital cap ture. In addition to routine 2-D imaging, this exam was also performed wi th 3-D Tomographic Imaging (MLO and CC). The exam was evaluated by CAD version 8. 3.17. Findings: This is a negative mammogram (ACR Catego ry 1). There is a stable fibroglandular pattern without significant change from prior studies. There is no [...] on filedocumented in this encounter Care Teams Boiler Tender Relationship Specialty Start Date End Date Davina Jiménez MD PCP - General 02/23/10 12/27/15 [address] [place] [address] documented as of this encounter
--- OUTSIDE RECORDS SUMMARY | 2021-10-07 14:04 | XMS_ITS | Encounter Summary ---
:1945 Author Organization [facility] [place] [address] Care Team Providers Name Role Phone Davina Jiménez MD Primary Care Provider Reason for Visit Reason Comments Left Hip Pain Pt states that pain is just about gone. Encounter Details Date Type Department Care Team Description 12/14/2010 Office Visit Orthopaedics at [facility] Evangelist Au MD [facility] [address] ORTHOPAEDIC SURGERY [phone] [place] [id number] (Wo rk) Social History Tobacco Use Types Packs/Day Years Used Date Former Smoker Smokeless Tobacco: Never Used Comments: 2001 Alcohol Use Standard Drinks/Week Comments No 0 (1 standard drink = 0.6 oz pure alcoho l) Sex Assigned at Date Recorded Not on file documented as of this encounter Last Filed Vital Signs Vital Sign Reading Time Taken Comments Blood Pressure 116/75 12/14/2010 3:08 PM EDT Pulse 87 12/14/2010 3:08 PM EDT Temperature - - Respiratory Rate - - Oxygen Saturation - - Inhaled Oxygen Concentration - - Weight 75 kg (165 lb 6.4 oz) 12/14/2010 3:08 PM EDT Height 163.8 cm (5' 4.5) 12/14/2010 3:08 PM EDT Body Mass Index 27.95 12/14/2010 3:08 PM EDT documented in this encounter Patient Instructions Patient InstructionsDawn Duke, RN SURGERY - 12/14/2010 3:13 PM EDT Welcome to [facility]chy, your secure online access to your electronic medical record at [facility]. Using my[facility]chy you will be able to send messages to your providers, view your test results, renew prescriptions, schedule appointments, and much more. Follow these instructions to enter your personal [facility]chy account for the first time: 1. Start your internet browser. Go to [email or web address] and click on the myAchy link. 2. Click SIGN UP NOW to go to the NEW MEMBER SIGN UP page. 3. Enter your myAchy Access Code exactly as it appears below. (You will not need this access code after you have completed the sign-up process.) ?? Your myAchy Access Code: [email or web address] ?? Expires: 01/28/11 03:13 PM ?? IMPORTANT: This Access Code will on the above mentioned date. If you do not sign up beforethis date, you will need to request a new Access Code number. 4. Enter your Date of (mm/dd/yyyy) and zip code click SUBMIT to go to the next page. 5. Create a myAchy identification (ID). This will be your [facility]chy login ID and cannot be changed, so think of one that is secure and easy to remember. 6. Create a password which you can change at any time. Your password must contain six (6) letters and two (2) numbers. 7. Enter your Password Reset Question and Answer. This will be used if you forget your password. 8. Enter your e-mail address. This is used to let you know when new information is available in [facility]chy. 9. Click SIGN UP to complete the process. You can now view your electronic medical record. If you have any questions about myAchy or your Access Code, please call for [place], for [place] or for [place]. If you need technical support, please e-mail . Remember, myAchy is NOT for urgent needs! Always dial 911 for medical emergencies. documented in this encounter Plan of Treatment Not on filedocumented as of this encounter Visit Diagnoses Not on filedocumented in this encounter Care Teams Ssis Ssrs Developer Relationship Specialty Start Date End Date Davina Jiménez MD PCP - General 02/23/10 12/27/15 [address] [place] [address] documented as of this encounter
--- OUTSIDE RECORDS SUMMARY | 2021-10-07 14:05 | XMS_ITS | Encounter Summary ---
:1945 Author Organization [facility] Address [address] [place] [address] Care Team Providers Name Role Phone Unavailable Primary Care Provider Unavailable Encounter Details Date Type Department Care Team Description 12/21/2005 Results Only [facility] - Eitan Cardenas MD conversion [address] [place] [id number] Social History Tobacco Use Types Packs/Day Years Used Date Never Assessed Sex Assigned at Date Recorded Not on file documented as of this encounter Plan of Treatment Not on filedocumented as of this encounter Procedures Procedure Name Priority Date/Time Associated Diagnosis Comme nts SURGICAL PATHOLOGY Routine 12/21/2005 0:00 EDT Re sults for this procedure are i n the results section. documented in this encounter Results SURGICAL PATHOLOGY (12/21/2005 0:00 EDT) Pathology Report: SURGICAL PATHOLOGY REPORT [facility] JENSSARAH Reports generated via electronic interface contain emily ginal data; LAB however they are lacking the format of the original re port. Caution should be taken when reading/interpreting unfo rmatted reports. Name: ? SHANNAN AMEZQUITA ? Accession #: ? [id number] ? : ? 1945 (Age: 60) ??F ? Collect Date: ? 12/21/2005 ? Location: ? [facility] ? Receive Date: ? 006 ? Provider: VICKI WILL MD Copy to: AURELIA ESTES MD ? Final Pathologic Diagnosis: A. ?Colon, ascending, biopsy: 1. ?Acute colitis with reparative changes . ??See comment. B. ?Colon, descending, biopsy: 1. ?Hyperplastic polyp. C. ?Colon, rectum, biopsy: 1. ?Superficial hyperplastic change. 2. ?No evidence of proctitis. 3. ?Congestion and hemorrhage of lamina p ropria. Comment: ? The findings in the ascending col on may be related to previous ischemic insult, including non-steroidal anti-inflammator y drugs or a primary vascular abnormality. ??The congestion and hemorrhage in the re ctal biopsy may be secondary to bowel preparation. ??Section (A) was revi ewed at the intradepartmental consultation conference on 12/23/05. ??[facility]Dr. Pyle[facility] Document reviewed and electronically signed by: Kena Pyle MD Report ??Date: 12/23/2005 16:36 By the signature above, the attending physician certif ies that he/she has personally conducted a gross and/or microscopic examin ation of the described specimens and rendered or confirmed the above diagnosi s. Specimen(s) Received: A. ?Bx ascending colon (#1) B. ?Polyp @ descending colon (#2) C. ?Rectal bx (#3) Clinical History: ? Screening; A. Focal u lcerations in distal asc colon; B. Descending colon polyp; C. Proctitis Gross Description: ? Received in [facility] fixative labelled Oest and bx ascending colon is an irregular 0.3 x 0.2 x 0.1 cm portion of ta n-pink soft tissue, submitted intact as (A). Received in [facility] fixa tive labelled Oest and polyp at descending colon is a 0.4 x 0.2 x 0.1 cm kam- pink, polypoid soft tissue, submitted intact as (B). Received in [facility] fixa tive labelled Oest and rectal bx is an irregular 0.3 x 0.2 x 0 .1 cm portion of kam-brown soft tissue, submitted intact as (C). /[facility] End of Report Specimen Performing Organization Address City/State/ZIP Code Phon e Number [facility] [address] [place] [address] SERVICES [facility] [address] [place] [address] documented in this encounter Visit Diagnoses Not on filedocumented in this encounter
--- OUTSIDE RECORDS SUMMARY | 2021-10-07 14:05 | XMS_ITS | Encounter Summary ---
:1945 Author Organization [facility] Address [address] [place] [address] Care Team Providers Name Role Phone Unavailable Primary Care Provider Unavailable Encounter Details Date Type Department Care Team Description 11/19/2008 Orders Only [facility] Alayna Cummings MD Laboratory Services - [address] [place] [address] [place] [address] Social History Tobacco Use Types Packs/Day Years Used Date Never Assessed Sex Assigned at Date Recorded Not on file documented as of this encounter Plan of Treatment Not on filedocumented as of this encounter Procedures Procedure Name Priority Date/Time Associated Diagnosis Comme [facility] CYTOPATHOLOGY Routine 11/19/2008 0:00 EDT Results for this procedure are i n the results section . documented in this encounter Results CYTOPATHOLOGY (11/19/2008 0:00 EDT) Pathology Report: CYTOPATHOLOGY REPORT ? JERRY ALL EN ? LAB Reports generated via electr [employer] interface contain original data; ? however they are lacking the format of the original report. ? Caution should be taken when reading/interpreting unformatted reports. ? Name: ? OEST, SHANNAN ? Accession #: ? [id number] ? : ? 1945 (Age: 63) ??F ?Collect Date: ? 11/19/2008 ? Location: ? [facility] ? Receive Date: ? 11/20/2008 ? Provider: ?ALAYNA JOE L MD ? Copy to: ? Specimen/Source: ? Pap Test, Cervix/Endocervix, ThinPrep Imaging System ? with manual evaluation ? Last Menstrual Period: ? 1992 ? SPECIMEN ADEQUACY ? Satisfactory for Eval uation ? - assessment of transformati on zone component not applicable ( e.g. atrophy, ? vaginal sample, hysterectomy ) ? - obscuring contamination, p ossibly lubricant ? GENERAL CATEGORIZATION ? Negative for Intraepi thelial Lesion or Malignancy ? Document reviewed and electr onically signed by: ? Davina Arrieta, SCT( ASCP) ? Report Date: ??08/25/ 2009 16:27 ? End of Report ? Specimen Performing Organization Address City/State/ZIP Code Phon e Number [facility] [address] [place] [address] SERVICES [facility] [address] [place] [address] documented in this encounter Visit Diagnoses Not on filedocumented in this encounter
--- OUTSIDE RECORDS SUMMARY | 2021-10-07 14:05 | XMS_ITS | Encounter Summary ---
:1945 Author Organization [facility] Address [address] [place] [address] Care Team Providers Name Role Phone Unavailable Primary Care Provider Unavailable Encounter Details Date Type Department Care Team Description 11/01/2005 Results Only [facility] - Wilfred Cummings MD Maple conversion [address] [place] [address] [place] [address] Social History Tobacco Use Types Packs/Day Years Used Date Never Assessed Sex Assigned at Date Recorded Not on file documented as of this encounter Plan of Treatment Not on filedocumented as of this encounter Procedures Procedure Name Priority Date/Time Associated Diagnosis Comme nts CYTOPATHOLOGY Routine 11/01/2005 0:00 EDT Results for this procedure are i n the results section . documented in this encounter Results CYTOPATHOLOGY (11/01/2005 0:00 EDT) Pathology Report: CYTOPATHOLOGY REPORT [facility] Reports generated via electronic interface contain emily ginal data; however they are lacking the format of the original re port. Caution should be taken when reading/interpreting unfo rmatted reports. Name: ? SHANNAN AMEZQUITA ? Accession #: ? [id number] : ? 1945 (Age: 60) ??F ?Collect Date: ? 080 04/2005 Location: ? [facility] ? Receive Date : ? 11/03/2005 Provider: ?CRISPIN CUMMINGS MD Copy to: ? Specimen/Source: ? ThinPrep Pap Test, Cervix/Endocervix, processed on [employer] ThinPrep Imaging System, with manual evaluation Last Menstrual Period: ? 1991 Other: ? HPVA - HPV testing requested if ASC-US on the current ThinPrep Pap test. ? SPECIMEN ADEQUACY ? Satisfactory for Evaluation - assessment of transformation zone component not appl icable ( e.g. atrophy, vaginal sample, hysterectomy) GENERAL CATEGORIZATION ? Negative for Intraepithelial Lesion or Malignan cy ? Document reviewed and electronically signed by: ? LUIS EDUARDO Jacob(ASCP)(IAC) ? Report Date: ??11/07/2005 17:19 End of Report Specimen Performing Organization Address City/State/ZIP Code Phon e Number [facility] [address] [place] [address] SERVICES [facility] [address] [place] [address] documented in this encounter Visit Diagnoses Not on filedocumented in this encounter
--- OUTSIDE RECORDS SUMMARY | 2021-10-07 14:05 | XMS_ITS | Clinical Summary ---
:1945 Author Organization [facility] Address [address] [place] [address] Care Team Providers Name Role Phone Unknown, Provider Primary Care Provider Social History Tobacco Use Types Packs/Day Years Used Date Never Assessed Sex Assigned at Date Recorded Not on file Plan of Treatment Health Maintenance Due Date Last Done Comments Fall Risk Screening 2010 Care Teams Crystal Inspector Relationship Specialty Start Date End Date Unknown, Provider, PCP - General 02/16/15
--- OUTSIDE RECORDS SUMMARY | 2021-10-07 14:05 | XMS_ITS | Encounter Summary ---
:1945 Author Organization [facility] Address [address] [place] [address] Care Team Providers Name Role Phone Unavailable Primary Care Provider Unavailable Encounter Details Date Type Department Care Team Description 12/09/2010 Results Only [facility] Alayna Cummings MD Laboratory Services - [address] [place] [address] [place] [address] Social History Tobacco Use Types Packs/Day Years Used Date Never Assessed Sex Assigned at Date Recorded Not on file documented as of this encounter Plan of Treatment Not on filedocumented as of this encounter Procedures Procedure Name Priority Date/Time Associated Diagnosis Comme nts PAP TEST- RESULT Routine 12/09/2010 0:00 EDT Resu lts for this ONLY procedure are i n the results section. documented in this encounter Results PAP TEST- RESULT ONLY (12/09/2010 0:00 EDT) Pathology Report: CYTOPATHOLOGY REPORT ? JERRY ALL EN ? LAB Reports generated via [employer] interface contain original data; ? however they are lacking the format of the original report. ? Caution should be taken when reading/interpreting unformatted reports. ? Name: ? OEST, SHANNAN ? Accession #: ? [id number] ? : ? 1945 (Age: 65) ??F ?Collect Date: ? 12/09/2010 ? Location: ? [facility] ? R eceive Date: ? 12/10/2010 ? Provider: ALAYNA CUMMINGS MD ? Copy to: AURELIA ESTES MD ? Final Report ? SPECIMEN ADEQUACY ? Satisfactory for Eval uation ? - assessment of transformati on zone component not applicable ( e.g. atrophy, ? vaginal sample, hysterectomy ) ? GENERAL CATEGORIZATION ? Negative for Intraepi thelial Lesion or Malignancy ? Last Menstural Period: 1992 ? Specimen/Source: ??Pap Test, Cervix/Endocervix, ThinPrep Imaging System with ? manual evaluation ? Document reviewed and electr onically signed by: ? Miguelina [place], [place]( CP) ? Report ??Date: 09/13/ 2011 11:37 ? HPV with Pap Test ? Date Ordered: ? 0 12/14/2010 ? Status: ?? Signed Out ?Date Complete: ? 12/17/2010 ? By: ??System Interface ? Date Reported: ? 12/17/2010 ? Interpretation ? RESULT: Negative for HPV typ es 16, 18, 31, 33, 35, 39, 45, 51, 52, ? 56, 58, 59, and 68. ? Comments ? Document reviewed and electr onically signed by: ? System Interface ? Report date: 16/20 11 ? By the signature above, the attending physician certifies that he/she has ? personally conducted a gross and/or microscopic examination of the described ? specimens and rendered or co nfirmed the above diagnosis. ? End of Report ? Specimen Performing Organization Address City/State/ZIP Code Phon e Number [facility] [address] [place] [address] SERVICES [facility] [address] [place] [address] documented in this encounter Visit Diagnoses Not on filedocumented in this encounter
--- OUTSIDE RECORDS SUMMARY | 2021-10-07 14:05 | XMS_ITS | Encounter Summary ---
:1945 Author Organization [facility] Address [address] [place] [address] Care Team Providers Name Role Phone Unavailable Primary Care Provider Unavailable Encounter Details Date Type Department Care Team Description 10/21/2004 Results Only [facility] - Wilfred Cummings MD Maple conversion [address] [place] [address] [place] [address] Social History Tobacco Use Types Packs/Day Years Used Date Never Assessed Sex Assigned at Date Recorded Not on file documented as of this encounter Plan of Treatment Not on filedocumented as of this encounter Procedures Procedure Name Priority Date/Time Associated Diagnosis Comme [facility] CYTOPATHOLOGY Routine 10/21/2004 0:00 EDT Results for this procedure are i n the results section . documented in this encounter Results CYTOPATHOLOGY (10/21/2004 0:00 EDT) Pathology Report: CYTOPATHOLOGY REPORT [facility] Reports generated via electronic interface contain emily ginal data; however they are lacking the format of the original re port. Caution should be taken when reading/interpreting unfo rmatted reports. Name: ? SHANNAN AMEZQUITA ? Accession #: ? [id number] : ? 1945 (Age: 59) ??F ?Collect Date: ? 10/02 Location: ? [facility] ? Receive Date : ? 10/25/2004 Provider: ?CRISPIN CUMMINGS MD Copy to: ? Specimen/Source: ? ThinPrep Pap Test, Cervix/Endocervix, processed on [employer] ThinPrep Imaging System, with manual evaluation Last Menstrual Period: ? 1991 Other: ? HPVA - HPV testing requested if ASC-US on the current ThinPrep Pap test. ? SPECIMEN ADEQUACY ? Satisfactory for Evaluation - transformation zone component present GENERAL CATEGORIZATION ? Negative for Intraepithelial Lesion or Malignan cy ? Document reviewed and electronically signed by: ? SAFIA Berrios(ASCP) ? Report Date: ??11/01/2004 12:31 End of Report Specimen Performing Organization Address City/State/ZIP Code Phon e Number [facility] [address] [place] [address] SERVICES [facility] [address] [place] [address] documented in this encounter Visit Diagnoses Not on filedocumented in this encounter
--- OUTSIDE RECORDS SUMMARY | 2021-10-07 14:05 | XMS_ITS | Encounter Summary ---
:1945 Author Organization [facility] Address [address] [place] [address] Care Team Providers Name Role Phone Unavailable Primary Care Provider Unavailable Encounter Details Date Type Department Care Team Description 01/25/2002 Results Only [facility] - Wilfred Cummings MD Maple conversion [address] [place] [address] [place] [address] Social History Tobacco Use Types Packs/Day Years Used Date Never Assessed Sex Assigned at Date Recorded Not on file documented as of this encounter Plan of Treatment Not on filedocumented as of this encounter Procedures Procedure Name Priority Date/Time Associated Diagnosis Comme nts CYTOPATHOLOGY Routine 01/25/2002 0:00 EDT Results for this procedure are i n the results section . documented in this encounter Results CYTOPATHOLOGY (01/25/2002 0:00 EDT) Pathology Report: CYTOPATHOLOGY REPORT [facility] Reports generated via electronic interface contain emily ginal data; however they are lacking the format of the original re port. Caution should be taken when reading/interpreting unfo rmatted reports. Name: ? SHANNAN AMEZQUITA ? Accession #: ? [id number] : ? 1945 (Age: 56) ??F ?Collect Date: ? 01/02 Location: ? [facility] ? Receive Date : ? 01/28/2002 Provider: ?CRISPIN CUMMINGS MD Copy to: ? Specimen/Source: ?ThinPrep Pap Test, Cervix/ Endocervix Last Menstrual Period: ? 1991 Hormonal/Contraceptive Status: ? Prempro ? SPECIMEN ADEQUACY ? Satisfactory for Evaluation - transformation zone component present GENERAL CATEGORIZATION ? Negative for Intraepithelial Lesion or Malignan cy ? Document reviewed and electronically signed by: ? LUIS EDUARDO Harris(ASCP) ? Report Date: ??01/31/2002 08:05 End of Report Specimen Performing Organization Address City/State/ZIP Code Phon e Number [facility] [address] [place] [address] SERVICES [facility] [address] [place] [address] documented in this encounter Visit Diagnoses Not on filedocumented in this encounter
--- NOTE | 2021-10-07 14:14 | W.ED.GENAD ---
Discharge Plan Disposition Patient Disposition: HOME Condition: Stable Discharge Details Clinical Impression: Right rib fracture Primary Care Provider: Lashell Reardon ED Provider: Charu Corbett Home Meds and New Rx's Prescriptions: Continued Eliquis 5 mg tablet 5 mg PO BID Qty: 180 4RF atorvastatin 40 mg tablet 40 mg PO QHS Qty: 90 4RF ferrous sulfate 27 mg iron tablet 27 mg PO DAILY Qty: 90 4RF metaxalone [Skelaxin] 800 mg tablet 800 mg PO QID PRN (Reason: muscle pain) Qty: 90 4RF Rx Instructions: 1 TAB QID PRN pantoprazole 40 mg tablet,delayed release (DR/EC) 40 mg PO DAILY Qty: 90 4RF propranolol 10 mg tablet 20 mg PO BID Qty: 180 4RF prednisone 5 mg tablet 5 mg PO DAILY Qty: 90 4RF amoxicillin 500 mg tablet 2,000 mg PO ONCE Qty: 4 3RF Rx Instructions: TAKE 2000 MG 1 HR BEFORE DENTAL PROCEDURE hydrocodone-acetaminophen 10-325 mg tablet 1 tab PO Q6H MDD 4 tablets PRN (Reason: pain) Qty: 120 0RF pregabalin 100 mg capsule 100 mg PO BID Qty: 60 3RF Discharge Instructions Instructions: Rib Fracture (ED) Additional Instructions: Your x-ray today revealed that you have a right 9th rib fracture with minimal displacement. You can apply ice to the affected area several times daily for 20 minutes at a time. You can also try [id number] lidocaine patches for topical pain relief as needed and directed. Take your pain medication that you have at home as needed and directed for pain. Be sure to take deep breaths to prevent the development of pneumonia. Follow-up with your primary care doctor in 1 week. Return to the emergency department with any worsening or new concerning symptoms such as fever, worsening cough, shortness of breath or any other concerns. Discharge Data Discharge Date/Time-TO BE ENTERED AT DEPARTURE: 10/07/21 15:47 Discharge Physician: Charu Corbett Medical Decision Making 76-year-old female presents with right lateral mid and inferior rib pain after fall 1 week ago when she hit her right ribs on a tile countertop with worsening pain since yesterday after coughing. Patient has normal respiratory rate and oxygen saturation. She appears comfortable and has no signs of respiratory distress. She is tender to palpation in her right lateral mid and inferior ribs. There is no evidence of overlying trauma. Abdomen is soft and nontender. She declines pain medication here. Patient referred for x-rays which noted a right ninth rib fracture with minimal displacement but no evidence of pneumothorax. Patient reassessed and her pain remains controlled. Patient states she has pain medication at home. Advised on the importance of taking deep breaths to prevent pneumonia. Advised to follow up with the primary care doctor for re-evaluation. Usual and customary return precautions given prior to discharge. Medical Records Medical records reviewed: Yes I reviewed the patient's medical records. Imaging Data Radiologic Study: Radiologist's impression: XR RIBS RT W PA ? LAT CHEST CLINICAL HISTORY:? s/p fall, r/o acute fracture TECHNIQUE:? 2D digital imaging was performed. COMPARISON:? No exams were available for comparison FINDINGS: Six views total: Four views right rib cage: There is a mildly displaced fracture of the right 9th rib.? No osseous lesions evident CHEST X-RAY TWO VIEWS: No lung contusion or pneumothorax.? There is no pleural effusion evident. Heart size is UPPER normal and there is no significant mediastinal widening. IMPRESSION: 1. RIGHT 9TH RIB FRACTURE.? MINIMAL DISPLACEMENT.? 2. No ipsilateral lung nor pleural abnormality evident.? No pneumothorax. HPI General Mode of arrival: ambulatory. Date/Time Provider Initiated Documentation: 10/07/21 13:59. Limitations to Documentation: no limitations. Information obtained by: patient. HPI Narrative: Pt is a 76-year-old female presents with right lateral inferior rib pain after fall 1 week ago which became significantly worse after coughing yesterday. Patient states she slipped on a wet floor 1 week ago and hit her right lateral inferior ribs on a tile countertop. She states she had instant onset of pain that has been worse with movement and deep breath. She states the pain has been significantly worse since yesterday after coughing. She denies any significant fever or cough. She denies any abdominal pain, vomiting or any other injuries. She states she take hydrocodone for chronic back pain which she took earlier today with relief of her pain. Related Data Home Medications Medication Instructions Recorded Confirmed amoxicillin 500 mg tablet 2,000 mg PO ONCE #4 tab-caps 09/17/20 09/29/21 apixaban 5 mg tablet (Eliquis) 5 mg PO BID #180 tabs 09/10/21 09/29/21 atorvastatin 40 mg tablet 40 mg PO QHS #90 tabs 09/10/21 09/29/21 ferrous sulfate 27 mg iron tablet 27 mg PO DAILY #90 tabs 09/10/21 09/29/21 metaxalone 800 mg tablet (Skelaxin) 800 mg PO QID PRN muscle pain #90 09/10/21 09/29/21 tab-caps pantoprazole 40 mg tablet,delayed 40 mg PO DAILY #90 tabs 09/10/21 09/29/21 release prednisone 5 mg tablet 5 mg PO DAILY #90 tabs 09/10/21 09/29/21 propranolol 10 mg tablet 20 mg PO BID #180 tabs 09/10/21 09/29/21 hydrocodone 10 mg-acetaminophen 1 tab PO Q6H PRN pain #120 tabs 09/21/21 09/29/21 325 mg tablet pregabalin 100 mg capsule 100 mg PO BID #60 caps 10/07/21 Previous Rx's Medication Instructions Recorded amoxicillin 500 mg tablet 2,000 mg PO ONCE #4 tab-caps 09/17/20 apixaban 5 mg tablet (Eliquis) 5 mg PO BID #180 tabs 09/10/21 atorvastatin 40 mg tablet 40 mg PO QHS #90 tabs 09/10/21 ferrous sulfate 27 mg iron tablet 27 mg PO DAILY #90 tabs 09/10/21 metaxalone 800 mg tablet (Skelaxin) 800 mg PO QID PRN muscle pain #90 09/10/21 tab-caps pantoprazole 40 mg tablet,delayed 40 mg PO DAILY #90 tabs 09/10/21 release prednisone 5 mg tablet 5 mg PO DAILY #90 tabs 09/10/21 propranolol 10 mg tablet 20 mg PO BID #180 tabs 09/10/21 hydrocodone 10 mg-acetaminophen 1 tab PO Q6H PRN pain #120 tabs 09/21/21 325 mg tablet pregabalin 100 mg capsule 100 mg PO BID #60 caps 10/07/21 Allergies Allergy/AdvReac Type Severity Reaction Status Date / Time celecoxib [From Celebrex] Allergy Severe hives Verified 10/07/21 14:06 diclofenac sodium AdvReac Intermediate DIARRHEA Verified 10/07/21 14:06 [From Arthrotec 50] misoprostol AdvReac Intermediate DIARRHEA Verified 10/07/21 14:06 [From Arthrotec 50] oxycodone HCl [From Percocet] AdvReac Unknown NAUSEA, Verified 10/07/21 14:06 DIZZINESS General Stated Complaint: Chest/Rib CELY: 3 Review of Systems All systems reviewed & are unremarkable except as noted in HPI and below Constitutional Constitutional: Denies chills, Denies excessive sweating, Denies fatigue, Denies fever(s), Denies weakness and Denies weight loss Eyes Eyes: Reports system reviewed and no additional complaints, except as documented and Denies blurry vision ENT Ears, Nose, Mouth, and Throat: Denies vertigo, Denies dizziness, Denies otalgia, Denies nasal congestion, Denies sore throat and Denies throat swelling Cardiovascular Cardiovascular: Denies chest pain, Denies syncope, Denies rapid heart rate and Denies dyspnea Respiratory Respiratory: Denies chest congestion, Denies cough, Denies pain on inspiration and Denies dyspnea Gastrointestinal Gastrointestinal: Denies abdominal pain, Denies diarrhea and Denies vomiting Genitourinary Genitourinary: Denies hematuria, Denies dysuria and Denies flank pain Musculoskeletal Musculoskeletal: Denies back pain and Denies joint swelling Comments: R sided rib pain Integumentary/Breasts Skin/Breast: Denies lesions and Denies rash Neurologic Neurologic: Denies behavioral changes, Denies confusion, Denies vertigo, Denies dizziness, Denies syncope, Denies localized weakness and Denies weakness Psychiatric Psychiatric: Denies behavioral changes, Denies confusion and Denies depression Endocrine Endocrine: Denies excessive sweating and Denies fatigue Hematologic/Lymphatic Hematologic/Lymphatic: Denies easy bruising and Denies lymphadenopathy Allergic/Immunologic Allergic/Immunologic: Denies throat swelling PFSH All Active Problems (Updated 10/07/21 @ 15:41 by Charu Corbett DO) Right rib fracture (Acute) Degenerative lumbar spinal stenosis (Acute) Lumbar spondylosis (Acute) Patellar instability of right knee (Acute) Right shoulder pain (Acute) Unstable right knee (Acute) 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 Monoclonal gammopathy (Acute) Lung nodule seen on imaging study (Acute) 06/12/20 [place]-6.9mm non calcified RLL, 4mm RLL f/u pulmonology [place] Angina pectoris (Chronic) 02/2020- [facility] ([place])- results equivocal ST or T wave abnormalities suggestive of ischemia HTN (hypertension) (Chronic) TIA (transient ischemic attack) (Acute) 01/2020 History of smoking 30 or more pack years (Acute) History of pulmonary embolism (Acute) 01/2020 PAT (paroxysmal atrial tachycardia) (Acute) GERD (gastroesophageal reflux disease) (Chronic) Neck pain (Acute 03/02/06) per xray-+C-spine DJD Spinal stenosis of lumbar region without neurogenic claudication (Acute 09/28/17) Hyperlipidemia (Acute 12/03/13) Low back pain (Acute) MRI-spinal stenosis; Left sided muscle spasm Lumbosacral radiculopathy at L5 (Acute 09/28/17) Osteoarthritis (Acute) right hip; right hip replacement 2001 Chronic pain syndrome (Acute 10/21/16) contract signed 2019 Medical History Adopted Decreased cardiac output Deep vein thrombosis (10/16/15) History of pulmonary embolism 01/2020 echo 02/2020- EF 45-50% History of tobacco use Malignant neoplasm of skin Basal cell-nose; [facility] [place] MOH's surgery Monoclonal gammopathy present on serum protein electrophoresis (11/21/17) Rotator cuff syndrome left Surgical History Appendectomy Biopsy of breast (~2000) [facility] [place]; NEG Excision, Skin Mass 08/15; PRE CANCER GROWTH ON LEG FINGER RESECTION 04/2014; LEFT HAND History of surgical removal of lesion Meniscectomy 2006 Rotator Cuff Repair LEFT AND RIGHT Status post tonsillectomy and adenoidectomy Tonsillectomy and adenoidectomy Total replacement of hip (~2001) 2001-RIGHT; 2002-LEFT; Social History Smoking/Tobacco Use Status: Former Tobacco Use Quit Date: 04/03/01 Tobacco: How many years used: 40 Second Hand Exposure: Yes Smoking risk assessment performed?: Yes Alcohol Intake: current Alcohol Intake frequency: holidays/special occasions only Alcohol type: wine Drug use: Never Substance use type: does not use Caregiver/Support person: No Household members: spouse Housing: house Communication Needs: None Do you need help understanding health information?: Never Pets and animals: Yes Pets and animals: cat(s), dog(s) and horse(s) Current gender identity: female What is your relationship status?: How often do you talk on the phone with friends or family?: twice per week How often do you get together with friends or relatives?: three or more times per week How often do you attend mormonism or jain services?: decline to answer Do you belong to any clubs or organized social groups?: yes Panel score (0-1 are the most socially isolated patients): 3 What type of physical activity do you participate in: bicycling, swimming and other Details: gym Duration: 45-60 minutes/day Frequency: 1-2 times per week Yani/Sabianist: No preference Special yani needs: No Seatbelt use: always Drive intox or ride w/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: No Do you feel safe at home: Yes Do you feel safe in your relationship?: Yes Exam Const General: cooperative and healthy appearing Orientation: alert, awake and oriented x3 HENMT Head: normal to inspection Ears: hearing grossly normal bilaterally, external ears normal and TM's normal bilaterally General nose exam: external nose normal Face and sinus: normal facial exam Mouth: oral mucosae normal Teeth and gingiva: dentition normal Throat: posterior oropharynx normal Eyes General: appearance normal, both eyes and all related structures Eyelids: eyelids normal Pupils: PERRL EOM: EOM intact bilaterally Neck Neck: normal visual inspection Lymphatic: no lymphadenopathy noted Chest Chest: normal inspection of the chest Chest/axillae images: 1. Tenderness to palpation to right lateral mid and inferior ribs. There is no evidence of ecchymosis, edema, erythema, step-off. Resp Effort & Inspection: normal respiratory effort and able to speak in complete sentences Auscultation: clear to auscultation bilaterally Cardio Rate: regular rate Rhythm: regular rhythm GI Inspection: normal to inspection and no abdominal wall ecchymosis Palpation: soft, not firm, no guarding, no hepatosplenomegaly, no masses and nontender Auscultation: normal bowel sounds Skin General skin exam: no rashes or lesions noted Neuro General: patient alert and patient awake Cognition: normal cognition Speech: speech normal Gait: normal gait Motor: muscle tone normal throughout Sensory Exam: no sensory deficits noted Extrem General: normal to inspection, full ROM and capillary refill normal Psych Appearance: grossly normal Mental Status: mental status grossly normal Speech and Movement: speech and movement normal Affect: normal affect Thought Process: normal Course Vital Signs Vital signs: Vital Signs Temperature 97.9 F 10/07/21 14:03 Pulse 65 10/07/21 14:03 Respiratory Rate 18 10/07/21 14:03 Blood Pressure 164/77 H 10/07/21 14:03 Pulse Oximetry 95 10/07/21 14:03 Temperature 97.9 F 10/07/21 14:03 Temperature Source Temporal Artery Scan 10/07/21 14:03 Pulse 65 10/07/21 14:03 Respiratory Rate 18 10/07/21 14:03 Respiratory Effort Non-Labored 10/07/21 14:06 Blood Pressure 164/77 H 10/07/21 14:03 Blood Pressure Position Sitting 10/07/21 14:03 Pulse Oximetry 95 10/07/21 14:03 Oxygen Delivery Method Room Air 10/07/21 14:03 Oxygen Flow Rate 0 10/07/21 14:03 PAWSS Have you Been Recently Intoxicated or Drunk Within the Last 30 days?: No Have you Ever Experienced Previous Episodes of Alcohol Withdrawal?: No Have you ever Experienced Withdrawal Seizures?: No Have you ever Experienced Delirium Tremens(DT)s?: No Have you ever undergone Alcohol Rehabilitation Treatment (i.e, inpt ot outpatient treatment programs)?: No Have you ever Experienced Blackouts?: No Have you ever Combined Alcohol with other Downers within the last 90 days?: No Have you ever Combined Alcohol with any other Substance of Abuse during the last 90 days?: No Positive Blood Alcohol level on Presentation? [PCS.BAL]: No Evidence of Increased Autonomic Activity (i.e. HR>120, tremor, sweating, agitation, nausea)?: No Result: 0
--- NOTE | 2021-10-07 15:03 | DI.RAD_ITS ---
Exam(s) XR RIBS RT W PA LAT CHEST EXAM: XR RIBS RT W PA LAT CHEST CLINICAL HISTORY: s/p fall, r/o acute fracture TECHNIQUE: 2D digital imaging was performed. COMPARISON: No exams were available for comparison FINDINGS: Six views total: Four views right rib cage: There is a mildly displaced fracture of the right 9th rib. No osseous lesions evident CHEST X-RAY TWO VIEWS: No lung contusion or pneumothorax. There is no pleural effusion evident. Heart size is UPPER normal and there is no significant mediastinal widening. IMPRESSION: 1. RIGHT 9TH RIB FRACTURE. MINIMAL DISPLACEMENT. 2. No ipsilateral lung nor pleural abnormality evident. No pneumothorax. DATA REPOSITORY: RADIATION DOSE DELIVERED:
[2021-10-07 15:49] VITALS: BP 164/77; PULSE 65; RESP 18; TEMP 36.6; O2SAT 95
== END 2021-10-07 15:47 | disposition home or self-care (01) ==
PROVIDERS: Emergency Provider Physician Assistant; PCP Nurse Practitioner
DX: S22.31XA Fracture of one rib, right side, initial encounter for closed fracture (principal); W22.09XA Striking against other stationary object, initial encounter
CPT/HCPCS: 99283; 71046; 71100

== ENCOUNTER → 2021-10-11 13:10 | Outpatient (BNVA) | payer OTHER, SELFPAY | PROVIDERS: PCP Nurse Practitioner; Referring Provider Nurse Practitioner; Visit Provider Student in an Organized Health Care Education/Training Program | DX: M25.361 Other instability, right knee (principal); M23.91 Unspecified internal derangement of right knee | CPT/HCPCS: 99214 ==

== ENCOUNTER 2021-10-19 14:17 | Outpatient (CLI) | payer OTHER, SELFPAY ==
--- NOTE | 2021-10-19 13:45 | DI.RAD_ITS ---
Exam(s) XR SHOULDER RT COMPLETE 2+V EXAM: XR SHOULDER RT COMPLETE 2+V CLINICAL HISTORY: RIGHT SHOULDER PAIN. TECHNIQUE: 2D digital imaging was performed. COMPARISON: No exams were available for comparison FINDINGS: Two views No evidence of fracture or dislocation. No calcifications in the subacromial space. There are moder ate-advanced degenerative changes in the glenohumeral joint. Mild diminution of the subacromial spac e may indicate rotator cuff pathology. AC joint appears unremarkable. No osseous lesions IMPRESSION: DATA REPOSITORY: RADIATION DOSE DELIVERED:
== END 2021-10-19 14:18 | disposition home or self-care (01) ==
LOC: DIORS 14:17
PROVIDERS: PCP Nurse Practitioner; Referring Provider Nurse Practitioner; Visit Provider Student in an Organized Health Care Education/Training Program
DX: M25.511 Pain in right shoulder (principal); M12.811 Other specific arthropathies, not elsewhere classified, right shoulder
CPT/HCPCS: 99214; 73030

== ENCOUNTER → 2021-11-30 13:22 | Outpatient (BNVA) | payer OTHER, SELFPAY | PROVIDERS: PCP Nurse Practitioner; Referring Provider Nurse Practitioner; Visit Provider Physician Assistant Surgical | DX: M12.811 Other specific arthropathies, not elsewhere classified, right shoulder (principal) | CPT/HCPCS: 20610; J1040 ==

== ENCOUNTER → 2021-12-20 13:51 | Outpatient (BNVA) | payer OTHER, SELFPAY | PROVIDERS: PCP Nurse Practitioner; Referring Provider Nurse Practitioner; Visit Provider Student in an Organized Health Care Education/Training Program | DX: M23.91 Unspecified internal derangement of right knee (principal) | CPT/HCPCS: 99213 ==

== ENCOUNTER 2021-12-20 17:37 | Outpatient (REF) | payer OTHER, SELFPAY ==
[2021-12-20 21:28] LABS: Abs Immature Grans 0.03 10^3/uL (0.0-0.06); Absolute Basophil Count 0.04 10^3/uL (0.0-0.2); Absolute Eosinophil Count 0.21 10^3/uL (0.0-0.7); Absolute Lymphocyte Count 1.83 10^3/uL (1.2-3.4); Absolute Monocyte Count 0.79 10^3/uL (0.1-0.8); Absolute Neutrophil Count 5.69 10^3/uL (1.2-6.7); Basophils % 0.5; Eosinophils % 2.4; HCT 43.5 % (36.0-46.0); HGB 15.4 g/dL (11.2-15.7); Immature Grans % 0.3; Lymphocytes % 21.3; MCHC 35.4 % (32.0-36.0); MCV 96 fL (80-95); MPV 9.6 fL (8.0-11.0); Monocytes % 9.2; Neutrophils % 66.3; Platelet Count 272 10^3/uL (130-400); RBC 4.53 10^6/uL (3.93-5.22); RDW 11.7 % (11.7-14.6); RDW-SD 41.2 fL; WBC 8.59 10^3/uL (4.4-10.8)
[2021-12-20 21:38] LABS: ALT 23 U/L (14-59); AST 13 U/L (15-37); Albumin 3.8 g/dL (3.4-5.0); Alkaline Phosphatase 77 U/L (46-116); Anion Gap 3.4 mmol/L (3-11); BUN 21 mg/dL (7-18); Bilirubin, Total 0.5 mg/dL (0.2-1.0); CO2 33.6 mmol/L (21.0-32.0); CREATININE 0.8 mg/dL (0.55-1.02); Calcium 10.9 mg/dL (8.5-10.1); Chloride 103 mmol/L (98-107); Estimated GFR 76.31 (mL/min/1.73m2); Glucose 103 mg/dL (74-106); Sodium 140 mmol/L (136-145); Total Protein 7.3 g/dL (6.4-8.2)
== END 2021-12-20 17:38 | disposition home or self-care (01) ==
LOC: LBN 17:37
PROVIDERS: PCP Nurse Practitioner; Visit Provider Nurse Practitioner Family
DX: R53.83 Other fatigue (principal); N39.0 Urinary tract infection, site not specified
CPT/HCPCS: 80053; 85025

== ENCOUNTER 2022-01-03 08:17 | Outpatient (CLI) | payer OTHER, SELFPAY ==
--- NOTE | 2022-01-03 08:15 | RT.EKG_ITS ---
APPROVED REPORT Exam: Resting ECG Reason for Exam: [facility] Patient Location: O HR:60 bpm ECG Measurements Heart Rate 60 AXIS AR 148 P -3 QRSd 86 QRS 43 QT 374 T 55 QTc 374 Conclusion Sinus rhythm...normal P axis, V-rate 50- 99 Normal Electrocardiogram
== END 2022-01-03 08:18 | disposition home or self-care (01) ==
LOC: DI.CARD 08:18
PROVIDERS: PCP Nurse Practitioner; Visit Provider Internal Medicine Cardiovascular Disease
DX: I47.1 Supraventricular tachycardia (principal)
CPT/HCPCS: 93010

== ENCOUNTER → 2022-01-03 12:39 | Outpatient (BNVA) | payer OTHER, SELFPAY | PROVIDERS: PCP Nurse Practitioner; Referring Provider Nurse Practitioner; Visit Provider Internal Medicine Cardiovascular Disease | DX: R60.0 Localized edema (principal); I42.9 Cardiomyopathy, unspecified; I47.1 Supraventricular tachycardia; I10 Essential (primary) hypertension | CPT/HCPCS: 93005; 99203; 99214 ==

== ENCOUNTER 2022-01-04 17:12 | Emergency (ER) | payer OTHER, SELFPAY ==
[2022-01-04 17:46] VITALS: BP 127/73; PULSE 73; RESP 20; TEMP 36.4; O2SAT 95
--- NOTE | 2022-01-04 19:00 | DI.CT_ITS ---
Exam(s) CT HEAD WO EXAM: CT HEAD WO CLINICAL HISTORY: blurred vision. TECHNIQUE: Imaging Protocol: Axial computed tomography images with coronal and sagittal reformatted images were created and reviewed COMPARISON: No exams were available for comparison FINDINGS: Ventricles and Extra axial spaces: Normal in size and morphology for the patient's age. Hemorrhage: None. Cerebral parenchyma: Mild atrophy. Mild white matter changes of small vessel disease. Midline shift: None. Brainstem/Cerebellum: Normal. Calvarium: Normal. Visualized Paranasal sinuses/Mastoids: Clear. Soft Tissues: Unremarkable. IMPRESSION: No acute intracranial process. RADIATION DOSE DELIVERED: 723.33mGy.cm Total DLP DATA REPOSITORY: All CT scans at this facility are submitted to the National Radiology Data Registry (NRDR) Dose Index Registry (DIR) with the [employer] (ACR). RADIATION OPTIMIZATION: All CT scans at this facility use at least one of these dose optimization te chniques: automated exposure control; mA and/or kV adjustment per patient size (includes targeted exa ms where dose is matched to clinical indication); or iterative reconstruction.
--- NOTE | 2022-01-04 19:00 | DI.RAD_ITS ---
Exam(s) XR KNEE RT 3V AP,LAT,KEYANA EXAM: XR KNEE RT 3V AP,LAT,KEYANA CLINICAL HISTORY: knee pain. TECHNIQUE: 2D digital imaging was performed. Three views. COMPARISON: No exams were available for comparison FINDINGS: Exam is limited by overlying clothing. BONES: Question of a lucency in the lateral aspect of the lateral tibial plateau no bony destructive lesion is seen. JOINTS: The knee is normally aligned. A moderate-sized joint effusion is visible. SOFT TISSUE: The anterior soft tissue swelling. Vascular calcifications. IMPRESSION: Question of a small defect in the lateral tibial plateau. CT could be considered for further evaluat ion. Joint effusion. DATA REPOSITORY: RADIATION DOSE DELIVERED:
[2022-01-04 19:48] LABS: Abs Immature Grans 0.03 10^3/uL (0.0-0.06); Absolute Basophil Count 0.06 10^3/uL (0.0-0.2); Absolute Eosinophil Count 0.28 10^3/uL (0.0-0.7); Absolute Lymphocyte Count 1.79 10^3/uL (1.2-3.4); Absolute Monocyte Count 1.04 10^3/uL (0.1-0.8); Absolute Neutrophil Count 5.18 10^3/uL (1.2-6.7); Basophils % 0.7; Eosinophils % 3.3; HCT 42.4 % (36.0-46.0); HGB 15.1 g/dL (11.2-15.7); Immature Grans % 0.4; Lymphocytes % 21.4; MCH 34.2 pg (27.0-33.0); MCHC 35.6 % (32.0-36.0); MCV 96 fL (80-95); MPV 8.9 fL (8.0-11.0); Monocytes % 12.4; Neutrophils % 61.8; Platelet Count 288 10^3/uL (130-400); RBC 4.41 10^6/uL (3.93-5.22); RDW 12.4 % (11.7-14.6); RDW-SD 43.7 fL; WBC 8.38 10^3/uL (4.4-10.8)
[2022-01-04 20:08] LABS: ALT 21 U/L (14-59); AST 11 U/L (15-37); Albumin 3.5 g/dL (3.4-5.0); Alkaline Phosphatase 74 U/L (46-116); Anion Gap 4.7 mmol/L (3-11); BUN 24 mg/dL (7-18); Bilirubin, Total 0.3 mg/dL (0.2-1.0); CO2 31.3 mmol/L (21.0-32.0); CREATININE 0.8 mg/dL (0.55-1.02); Calcium 10.2 mg/dL (8.5-10.1); Chloride 104 mmol/L (98-107); Estimated GFR 76.31 (mL/min/1.73m2); Glucose 84 mg/dL (74-106); Potassium 4.2 mmol/L (3.5-5.1); Sodium 140 mmol/L (136-145); Total Protein 7.3 g/dL (6.4-8.2)
--- NOTE | 2022-01-04 20:13 | DI.VRAD_ITS ---
PROCEDURE INFORMATION: Exam: CT Head Without Contrast Exam date and time: 01/04/2022 7:55 PM Age: 76 years old Clinical indication: Visual disturbance; Patient HX: Blurred vision TECHNIQUE: Imaging protocol: Computed tomography of the head without contrast. Radiation optimization: All CT scans at this facility use at least one of these dose optimization techniques: automated exposure control; mA and/or kV adjustment per patient size (includes targeted exams where dose is matched to clinical indication); or iterative reconstruction. COMPARISON: No relevant prior studies available. FINDINGS: Brain: Mild volume loss within the brain parenchyma. Multifocal areas of low attenuation are seen throughout the subcortical and periventricular white matter. No extra-axial fluid collection. No midline shift. No loss of hansen-white differentiation to suggest an acute cortical infarct. Cerebral ventricles: No hydrocephalus. Paranasal sinuses: The paranasal sinuses are well aerated. Mastoid air cells: The mastoid air cells are well aerated. Orbital cavities: The intraorbital contents are normal appearance. Bones/joints: The skull and skull base are normal appearance. Soft tissues: Unremarkable. IMPRESSION: 1. No acute intracranial abnormality. 2. Mild volume loss with white matter changes most commonly seen with chronic microvascular ischemic disease. Dictated and Authenticated by: Esperanza Michaels MD. Ordering:MAMTA Ortega MD
[2022-01-04 20:18] VITALS: RESP 18
[2022-01-04 20:32] VITALS: BP 140/91; PULSE 78; RESP 18; TEMP 36.4; O2SAT 99
--- NOTE | 2022-01-04 20:35 | DI.VRAD_ITS ---
PROCEDURE INFORMATION: Exam: XR Right Knee Exam date and time: 01/04/2022 8:05 PM Age: 76 years old Clinical indication: Other: Knee pain TECHNIQUE: Imaging protocol: Radiologic exam of the Right knee. Views: 3 views. COMPARISON: MR LOWER JOINT RT WO 10/07/2021 1:14 PM FINDINGS: Bones/joints: A 15 mm subtle lobulated lesion is seen along the distal femur, just superior to the medial femoral condyle, corresponding to a nonaggressive appearing lesion on the prior MR imaging. 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 Slight possible irregularity within the lateral tibial plateau and fibular head. Mild, early, osteoarthritic changes within the medial and lateral compartments. Small to moderate size joint effusion. Soft tissues: Mild diffuse subcutaneous edema throughout the knee, most pronounced overlying the patellar tendon and patella. IMPRESSION: 1. Subtle irregularity within the lateral tibial plateau and fibular head which may be projectional. If there is clinical suspicion for acute fracture then a CT can be considered. 2. Small to moderate-sized joint effusion. Dictated and Authenticated by: Esperanza Michaels MD. Ordering:MAMTA Ortega MD
--- NOTE | 2022-01-04 20:37 | NUR.NOTE ---
Ultrasound req faxed to DI for R Leg pain and swelling. Patient given copy with phone number to call DI to make appointment.Nursing Note:
--- NOTE | 2022-01-04 20:51 | ED.GENADUL_ITS ---
Discharge Plan Disposition Patient Disposition: HOME Condition: Stable Discharge Details Clinical Impression: Arthralgia of knee, right, Hordeolum Primary Care Provider: Lashell Reardon ED Provider: Jordan Torres Home Meds and New Rx's Prescriptions: No Action Eliquis 5 mg tablet 5 mg PO BID Qty: 180 4RF atorvastatin 40 mg tablet 40 mg PO QHS Qty: 90 4RF metaxalone [Skelaxin] 800 mg tablet 800 mg PO QID PRN (Reason: muscle pain) Qty: 90 4RF Rx Instructions: 1 TAB QID PRN losartan 25 mg tablet 25 mg PO DAILY Qty: 90 0RF amoxicillin 500 mg tablet 2,000 mg PO ONCE Qty: 4 3RF Rx Instructions: TAKE 2000 MG 1 HR BEFORE DENTAL PROCEDURE ferrous sulfate 220 mg (44 mg iron)/5 mL elixir 220 mg PO DAILY propranolol 10 mg tablet 20 mg PO BID betamethasone dipropionate 0.05 % cream 1 applic topical BID PRN (Reason: skin irritation) Qty: 45 0RF pregabalin 100 mg capsule 100 mg PO BID Qty: 60 3RF hydrocodone-acetaminophen 10-325 mg tablet 1 tab PO Q6H MDD 4 tablets PRN (Reason: pain) Qty: 120 0RF pantoprazole 40 mg tablet,delayed release (DR/EC) 40 mg PO DAILY Qty: 90 3RF Discharge Instructions Instructions: Stye (ED), Knee Pain (ED) Additional Instructions: Please take all of your nightly medication including your blood thinner this evening. Return tomorrow for ultrasound and reassessment. Please wear the knee brace for any activity and you may take any pain medication as you typically would for pain and discomfort. If you develop any new or significant worsening of symptoms please return to the emergency department for reassessment immediately. Otherwise if not improving in the next week please follow-up with your primary care provider for reassessment. Referrals: Lashell Reardon, [employer] [Primary Care Provider] - 1 week Discharge Data Discharge Date/Time-TO BE ENTERED AT DEPARTURE: 01/04/22 21:04 Medical Decision Making Patient referred to the emergency department for chief complaint of left leg pain. Patient has significant history of DVTs and PEs with TIA. Patient is on apixaban and has been on that for years with no other symptoms. She does state that symptoms started 1 week ago while walking around [place] and knee has been swollen and painful since with fluid not diminishing. 3 days ago patient did state some blurred vision with some double vision bilateral that has improved and now has blurry vision of the left eye. Patient does have known styes that started approximately 1 week ago. Neurological exam is unremarkable with no focal neurological deficits, patient does have 2 styes to the left upper eyelid with conjunctival irritation. Patient has diffuse swelling to the right knee and reports lateral knee pain but has diffuse tenderness to the thigh and calf on the same side. Bedside ultrasound was utilized and showed no obvious DVT but was limited exam.. Given patient's history we will perform lab work and CT imaging of the head but I have low suspicion for CVA. We will perform x-ray of right knee and will plan on outpatient ultrasound tomorrow when available to fully rule out DVT. Reviewed labs and CBC is overall unremarkable, along with CMP showing no emergent findings. Reviewed CT imaging of head and radiologist rotation that s hows no acute intracranial abnormality. Reviewed plain film x-ray of the knee that shows knee effusion. Radiologist mentions concern for possible finding of acute fracture which I have no suspicion for this. This lowers my suspicion for DVT but will still continue ultrasound. Patient encouraged to wear knee brace and monitor for any further vision changes but I have suspicion that the blurred vision is somewhat due to significant size of styes. Patient already has been in discussion with her drink waiter in regards to follow-up. After discussion of diagnosis and plan of care patient has no further needs, questions, or concerns and states clear understanding to return to the emergency department for any worsening symptoms. This documentation was generated using [employer] dictation system, please disregard any oddities of phrase or misspellings. Imaging Data Radiologic Study: Attestation: I personally reviewed and interpreted this imaging study as follows: Imaging: X-Ray Radiologist's impression: FINDINGS: Bones/joints: A 15 mm subtle lobulated lesion is seen along the distal femur, just superior to the medial femoral condyle, corresponding to a nonaggressive appearing lesion on the prior MR imaging. 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 Slight possible irregularity within the lateral tibial plateau and fibular head. Mild, early, osteoarthritic changes within the medial and lateral compartments. Small to moderate size joint effusion. Soft tissues: Mild diffuse subcutaneous edema throughout the knee, most pronounced overlying the patellar tendon and patella. IMPRESSION: 1. Subtle irregularity within the lateral tibial plateau and fibular head which may be projectional. If there is clinical suspicion for acute fracture then a CT can be considered. 2. Small to moderate-sized joint effusion. Lab Data Lab results reviewed: Yes I reviewed the patient's lab results. HPI General Mode of arrival: ambulatory . Date/Time Provider Initiated Documentation: 01/04/22 17:22 . Limitations to Documentation: no limitations . Information obtained by: patient, family and RN notes reviewed . History of Present Illness 76 year old F presents to the emergency department with the chief complaint of right leg/knee pain, described as mild and moderate, with intensity rated at 2. Quality is described as aching, and is localized to the right and lower extremity. Patient started experiencing this day(s) (5) and it has been constant. Rest improves symptom(s), Movement worsens symptoms . Patient did receive the following treatments prior to arrival, none Related Data Home Medications Medication Instructions Recorded Confirmed amoxicillin 500 mg tablet 2,000 mg PO ONCE #4 tab-caps 09/17/20 01/05/22 apixaban 5 mg tablet (Eliquis) 5 mg PO BID #180 tabs 09/10/21 01/05/22 atorvastatin 40 mg tablet 40 mg PO QHS #90 tabs 09/10/21 01/05/22 metaxalone 800 mg tablet (Skelaxin) 800 mg PO QID PRN muscle pain #90 09/10/21 01/05/22 tab-caps pregabalin 100 mg capsule 100 mg PO BID #60 caps 10/07/21 01/05/22 betamethasone dipropionate 0.05 % 1 applic topical BID PRN skin 11/25/21 01/05/22 topical cream irritation #45 grams ferrous sulfate 220 mg (44 mg 220 mg PO DAILY 11/25/21 01/05/22 iron)/5 mL oral elixir propranolol 10 mg tablet 20 mg PO BID 11/25/21 01/05/22 hydrocodone 10 mg-acetaminophen 1 tab PO Q6H PRN pain #120 tabs 11/26/21 01/05/22 325 mg tablet losartan 25 mg tablet 25 mg PO DAILY #90 tabs 12/30/21 01/05/22 pantoprazole 40 mg tablet,delayed 40 mg PO DAILY #90 tabs 01/03/22 01/05/22 release Previous Rx's Medication Instructions Recorded amoxicillin 500 mg tablet 2,000 mg PO ONCE #4 tab-caps 09/17/20 apixaban 5 mg tablet (Eliquis) 5 mg PO BID #180 tabs 09/10/21 atorvastatin 40 mg tablet 40 mg PO QHS #90 tabs 09/10/21 metaxalone 800 mg tablet (Skelaxin) 800 mg PO QID PRN muscle pain #90 09/10/21 tab-caps pregabalin 100 mg capsule 100 mg PO BID #60 caps 10/07/21 betamethasone dipropionate 0.05 % 1 applic topical BID PRN skin 11/25/21 topical cream irritation #45 grams hydrocodone 10 mg-acetaminophen 1 tab PO Q6H PRN pain #120 tabs 11/26/21 325 mg tablet losartan 25 mg tablet 25 mg PO DAILY #90 tabs 12/30/21 pantoprazole 40 mg tablet,delayed 40 mg PO DAILY #90 tabs 01/03/22 release Allergies Allergy/AdvReac Type Severity Reaction Status Date / Time celecoxib [From Celebrex] Allergy Severe hives Verified 01/05/22 13:59 diclofenac sodium AdvReac Intermediate DIARRHEA Verified 01/05/22 13:59 [From Arthrotec 50] misoprostol AdvReac Intermediate DIARRHEA Verified 01/05/22 13:59 [From Arthrotec 50] oxycodone HCl [From Percocet] AdvReac Unknown NAUSEA, Verified 01/05/22 13:59 DIZZINESS General Stated Complaint: GenMedical CELY: 3 Review of Systems Constitutional Constitutional: Denies chills, Denies fever(s), Denies frequent falls and Denies headache(s) Eyes Eyes: Reports blurry vision and Reports diplopia ENT Ears, Nose, Mouth, and Throat: Denies headache(s) Cardiovascular Cardiovascular: Denies chest pain, Denies syncope, Reports leg edema and Denies dyspnea Respiratory Respiratory: Denies cough and Denies dyspnea Gastrointestinal Gastrointestinal: Reports system reviewed and no additional complaints, except as documented Genitourinary Genitourinary: Reports system reviewed and no additional complaints, except as documented Musculoskeletal Musculoskeletal: Reports as per HPI, Reports arthralgias, Reports joint swelling and Reports limited range of motion Integumentary/Breasts Skin/Breast: Denies erythema, Denies unusual bruising and Denies wounds Neurologic Neurologic: Denies syncope, Denies frequent falls, Denies headache(s), Denies localized weakness and Denies paresthesias Psychiatric Psychiatric: Reports anxiety PFSH All Active Problems Arthralgia of knee, right (Acute) Hordeolum (Acute) Cardiomyopathy (Acute) Hypertension (Chronic) Primary osteoarthritis, right shoulder (Acute) Rotator cuff arthropathy of right shoulder (Acute) Internal derangement of right knee (Acute) Degenerative lumbar spinal stenosis (Acute) Lumbar spondylosis (Acute) Patellar instability of right knee (Acute) Right shoulder pain (Acute) Unstable right knee (Acute) 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 Monoclonal gammopathy (Acute) Lung nodule seen on imaging study (Acute) 06/12/20 [place]-6.9mm non calcified RLL, 4mm RLL f/u pulmonology [place] Angina pectoris (Chronic) 02/2020- [facility] ([place])- results equivocal ST or T wave abnormalities suggestive of ischemia HTN (hypertension) (Chronic) TIA (transient ischemic attack) (Acute) 01/2020 History of smoking 30 or more pack years (Acute) History of pulmonary embolism (Acute) 01/2020 PAT (paroxysmal atrial tachycardia) (Acute) GERD (gastroesophageal reflux disease) (Chronic) Neck pain (Acute 03/02/06) per xray-+C-spine DJD Spinal stenosis of lumbar region without neurogenic claudication (Acute 09/28/17) Hyperlipidemia (Acute 12/03/13) Low back pain (Acute) MRI-spinal stenosis; Left sided muscle spasm Lumbosacral radiculopathy at L5 (Acute 09/28/17) Osteoarthritis (Acute) right hip; right hip replacement 2001 Chronic pain syndrome (Acute 10/21/16) contract signed 2019 Medical History Adopted Decreased cardiac output Deep vein thrombosis (10/16/15) History of pulmonary embolism 01/2020 echo 02/2020- EF 45-50% History of tobacco use Malignant neoplasm of skin Basal cell-nose; [facility] MOH's surgery Monoclonal gammopathy present on serum protein electrophoresis (11/21/17) Rotator cuff syndrome left Surgical History Appendectomy Biopsy of breast (~2000) [facility]; NEG Excision, Skin Mass 08/15; PRE CANCER GROWTH ON LEG FINGER RESECTION 04/2014; LEFT HAND History of surgical removal of lesion Meniscectomy 2007 Rotator Cuff Repair LEFT AND RIGHT Status post tonsillectomy and adenoidectomy Tonsillectomy and adenoidectomy Total replacement of hip (~2001) 2001-RIGHT; 2002-LEFT; Social History Smoking/Tobacco Use Status: Former Tobacco Use Quit Date: 04/03/01 Tobacco: How many years used: 40 Second Hand Exposure: Yes Smoking risk assessment performed?: Yes Alcohol Intake: current Alcohol Intake frequency: holidays/special occasions only Alcohol type: wine Drug use: Never Substance use type: does not use Caregiver/Support person: No Household members: spouse Housing: house Communication Needs: None Do you need help understanding health information?: Never Pets and animals: Yes Pets and animals: cat(s), dog(s) and horse(s) Current gender identity: female What is your relationship status?: How often do you talk on the phone with friends or family?: twice per week How often do you get together with friends or relatives?: three or more times per week How often do you attend yazidi or adventism services?: decline to answer Do you belong to any clubs or organized social groups?: yes Panel score (0-1 are the most socially isolated patients): 3 What type of physical activity do you participate in: bicycling, swimming and other Details: gym Duration: 45-60 minutes/day Frequency: 1-2 times per week Yani/Restorationism: No preference Special yani needs: No Seatbelt use: always Drive intox or ride w/intox delivery driver/supervisor: No Do you feel safe at home: Yes Do you feel safe in your relationship?: Yes Exam Const General: cooperative, no acute distress and not ill appearing Orientation: alert, awake and oriented x3 Eyes Alignment and Position: alignment normal Periorbital: periorbital findings normal Eyelids: eyelid abnormality left upper eyelid erythema, swelling and tenderness Conjunctivae: conjunctival abnormality left conjunctival injection diffuse (mild) Sclera: sclerae normal Pupils: PERRL and accommodation normal EOM: EOM intact bilaterally Resp Effort & Inspection: normal respiratory effort, able to speak in complete sentences and no respiratory distress Auscultation: clear to auscultation bilaterally Cardio Rate: regular rate Rhythm: regular rhythm Heart Sounds: S1 normal and S2 normal Skin General skin exam: no rashes or lesions noted Neuro General: patient alert, patient awake, patient oriented x3, moves all extremities and no focal motor deficits Cognition: normal cognition Speech: speech normal Motor: muscle tone normal throughout, no pronator drift and no movement abnormalities noted Sensory Exam: no sensory deficits noted Coordination: Does not sway with eyes open Extrem Right lower extremity: hip/thigh Details: tenderness Location: of the mid upper leg Location: medially and anteriorly, knee Details: normal to inspection, tenderness Location: of the lateral joint line, swelling Location: of the patella and abnormal ROM Details: pain with active ROM during Details: in extension; no abrasions, no lacerations and no ecchymosis, lower leg Details: tenderness Location: of the posterior calf and foot Details: normal capillary refill and vascular exam Details: dorsalis pedis pulse present, posterior tibial pulse present and normal capillary refill; no tenderness Course Vital Signs Vital signs: Vital Signs Temperature 36.4 C L 01/04/22 17:46 Pulse 73 01/04/22 17:46 Respiratory Rate 20 01/04/22 17:46 Blood Pressure 127/73 01/04/22 17:46 Pulse Oximetry 95 01/04/22 17:46 Temperature 36.4 C L 01/04/22 20:32 Temperature Source Temporal Artery Scan 01/04/22 20:32 Pulse 78 01/04/22 20:32 Respiratory Rate 18 01/04/22 20:32 Respiratory Effort 01/04/22 20:18 Respiratory Pattern Normal 01/04/22 20:18 Blood Pressure 140/91 H 01/04/22 20:32 Blood Pressure Position Sitting 01/04/22 17:46 Pulse Oximetry 99 01/04/22 20:32 Oxygen Delivery Method Room Air 01/04/22 20:32 Oxygen Flow Rate 0 01/04/22 20:32 Pain Level 2 01/04/22 17:46 Lab/Test Results Lab/Test Results: Laboratory Tests Range/Units 01/04/22 01/04/22 19:35 19:35 WBC (4.4-10.8) 10^3/uL 8.38 RBC (3.93-5.22) 10^6/uL 4.41 Hgb (11.2-15.7) g/dL 15.1 Hct (36.0-46.0) % 42.4 MCV (80-95) fL 96 H MCH (27.0-33.0) pg 34.2 H MCHC (32.0-36.0) % 35.6 RDW (11.7-14.6) % 12.4 Plt Count (130-400) 10^3/uL 288 MPV (8.0-11.0) fL 8.9 Immature Gran % 0.4 Neutrophils % 61.8 Lymphocytes % 21.4 Monocytes % 12.4 Eosinophils % 3.3 Basophils % 0.7 Nucleated RBC % (0.0-0.3) % 0.0 Absolute Neutrophils (1.2-6.7) 10^3/uL 5.18 Absolute Lymphocytes (1.2-3.4) 10^3/uL 1.79 Absolute Monocytes (0.1-0.8) 10^3/uL 1.04 H Absolute Eosinophils (0.0-0.7) 10^3/uL 0.28 Absolute Basophils (0.0-0.2) 10^3/uL 0.06 Sodium (136-145) mmol/L 140 Potassium (3.5-5.1) mmol/L 4.2 Chloride (98-107) mmol/L 104 Carbon Dioxide (21.0-32.0) mmol/L 31.3 Anion Gap (3-11) mmol/L 4.7 BUN (7-18) mg/dL 24 H Creatinine (0.55-1.02) mg/dL 0.8 Est GFR (CKD-EPI 2020) (mL/min/1.73m2) 76.31 Glucose (74-106) mg/dL 84 Calcium (8.5-10.1) mg/dL 10.2 H Total Bilirubin (0.2-1.0) mg/dL 0.3 AST (15-37) U/L 11 L ALT (14-59) U/L 21 Alkaline Phosphatase (46-116) U/L 74 Total Protein (6.4-8.2) g/dL 7.3 Albumin (3.4-5.0) g/dL 3.5
== END 2022-01-04 21:04 | disposition home or self-care (01) ==
PROVIDERS: Emergency Provider Nurse Practitioner Family; PCP Nurse Practitioner
DX: M25.561 Pain in right knee (principal); H00.014 Hordeolum externum left upper eyelid; M25.461 Effusion, right knee; Z87.891 Personal history of nicotine dependence; Z86.711 Personal history of pulmonary embolism; Z86.718 Personal history of other venous thrombosis and embolism; Z79.01 Long term (current) use of anticoagulants
CPT/HCPCS: 36415; 73562; 80053; 99284; 70450; 85025; 99282

== ENCOUNTER → 2022-01-05 12:00 | Outpatient (CLI) | payer OTHER, SELFPAY ==
--- NOTE | 2022-01-05 | DI.US_ITS ---
Exam(s) US LOWER EXTREMITY VENOUS RT EXAM: US LOWER EXTREMITY VENOUS RT CLINICAL HISTORY: RT LEG PAIN AND SWELLING, R/O DVT. TECHNIQUE: Lower extremity venous ultrasound performed using grayscale, color-flow, and spectral Do ppler analysis. COMPARISON: No exams were available for comparison FINDINGS: The common femoral, femoral and popliteal veins demonstrate normal compressibility, augmentation, and color Doppler. The posterior tibial veins are patent. No saphenous vein thrombosis or other superfi cial venous thrombosis is seen. No hematoma or Garner's cyst is seen. IMPRESSION: Negative lower extremity ultrasound. No evidence of DVT. DATA REPOSITORY:
== END ==
PROVIDERS: PCP Nurse Practitioner; Visit Provider Nurse Practitioner Family
DX: M79.604 Pain in right leg (principal); R22.41 Localized swelling, mass and lump, right lower limb
CPT/HCPCS: 93971

== ENCOUNTER 2022-01-05 13:34 | Emergency (ER) | payer OTHER, SELFPAY ==
[2022-01-05 13:52] VITALS: BP 127/85; PULSE 64; RESP 18; TEMP 36.7; O2SAT 92
--- NOTE | 2022-01-05 13:57 | W.ED.GENAD ---
Discharge Plan Disposition Patient Disposition: HOME Condition: Stable Discharge Details Clinical Impression: Arthralgia of knee, right Primary Care Provider: Lashell Reardon ED Provider: Laz Echeverria Home Meds and New Rx's Prescriptions: Continued Eliquis 5 mg tablet 5 mg PO BID Qty: 180 4RF atorvastatin 40 mg tablet 40 mg PO QHS Qty: 90 4RF metaxalone [Skelaxin] 800 mg tablet 800 mg PO QID PRN (Reason: muscle pain) Qty: 90 4RF Rx Instructions: 1 TAB QID PRN losartan 25 mg tablet 25 mg PO DAILY Qty: 90 0RF amoxicillin 500 mg tablet 2,000 mg PO ONCE Qty: 4 3RF Rx Instructions: TAKE 2000 MG 1 HR BEFORE DENTAL PROCEDURE ferrous sulfate 220 mg (44 mg iron)/5 mL elixir 220 mg PO DAILY propranolol 10 mg tablet 20 mg PO BID betamethasone dipropionate 0.05 % cream 1 applic topical BID PRN (Reason: skin irritation) Qty: 45 0RF pregabalin 100 mg capsule 100 mg PO BID Qty: 60 3RF hydrocodone-acetaminophen 10-325 mg tablet 1 tab PO Q6H MDD 4 tablets PRN (Reason: pain) Qty: 120 0RF pantoprazole 40 mg tablet,delayed release (DR/EC) 40 mg PO DAILY Qty: 90 3RF Discharge Instructions Instructions: Knee Pain (ED) Additional Instructions: Ultrasound is negative for DVT. Please continue your treatment plan as set forth by your primary care provider. Follow-up with your orthopedic team when you go to [place]. Please watch for new or worsening symptoms and return to the ER for any concerns. Medical Decision Making 76-year-old female presenting for ultrasound results of her right lower extremity. Seen in the ER yesterday for acute on chronic knee pain. I was able to review the ultrasound and it is negative. Discussed results with patient. She is relieved. No evidence of septic joint. Denies chest pain, fever, shortness of breath. Patient will be going to [place] for the winter soon and plans to follow-up with orthopedics when she gets there. Standard discharge and return precautions were provided. Patient understands, is agreeable to this plan, and has no additional questions or concerns upon discharge. This documentation was generated using [employer] system, please disregard any oddities of phrase or misspellings. Medical Records Medical records reviewed: Yes I reviewed the patient's medical records. Imaging Data Radiologic Study: Attestation: I personally reviewed and interpreted this imaging study as follows: Imaging: Ultrasound Radiologist's impression: This report is currently processing and HAS NOT BEEN OFFICIALLY SIGNED BY THE PHYSICIAN - ESTIMATED TIME OF APPROVAL IS 01/05/2022 14:02. Exam(s) US LOWER EXTREMITY VENOUS RT EXAM: US LOWER EXTREMITY VENOUS RT CLINICAL HISTORY: RT LEG PAIN AND SWELLING, R/O DVT. TECHNIQUE: Lower extremity venous ultrasound performed using grayscale, color-flow, and spectral Doppler analysis. COMPARISON: No exams were available for comparison FINDINGS: The common femoral, femoral and popliteal veins demonstrate normal compressibility, augmentation, and color Doppler. The posterior tibial veins are patent. No saphenous vein thrombosis or other superficial venous thrombosis is seen. No hematoma or Garner's cyst is seen. IMPRESSION: Negative lower extremity ultrasound. No evidence of DVT. HPI General Mode of arrival: ambulatory. Date/Time Provider Initiated Documentation: 01/05/22 13:57. Limitations to Documentation: no limitations. Information obtained by: patient. HPI Narrative: 76-year-old female presenting to the ER for ultrasound results of her right lower extremity. Patient was seen in the ER yesterday for acute on chronic worsening right knee pain, x-ray obtained then, ultrasound set up for today. She denies chest pain, shortness of breath, fever, redness. She is currently on apixaban. Plan is to follow-up with an orthopedic in [place] when she goes down there for the winter assuming her ultrasound is unremarkable. Related Data Home Medications Medication Instructions Recorded Confirmed amoxicillin 500 mg tablet 2,000 mg PO ONCE #4 tab-caps 09/17/20 01/05/22 apixaban 5 mg tablet (Eliquis) 5 mg PO BID #180 tabs 09/10/21 01/05/22 atorvastatin 40 mg tablet 40 mg PO QHS #90 tabs 09/10/21 01/05/22 metaxalone 800 mg tablet (Skelaxin) 800 mg PO QID PRN muscle pain #90 09/10/21 01/05/22 tab-caps pregabalin 100 mg capsule 100 mg PO BID #60 caps 10/07/21 01/05/22 betamethasone dipropionate 0.05 % 1 applic topical BID PRN skin 11/25/21 01/05/22 topical cream irritation #45 grams ferrous sulfate 220 mg (44 mg 220 mg PO DAILY 11/25/21 01/05/22 iron)/5 mL oral elixir propranolol 10 mg tablet 20 mg PO BID 11/25/21 01/05/22 hydrocodone 10 mg-acetaminophen 1 tab PO Q6H PRN pain #120 tabs 11/26/21 01/05/22 325 mg tablet losartan 25 mg tablet 25 mg PO DAILY #90 tabs 12/30/21 01/05/22 pantoprazole 40 mg tablet,delayed 40 mg PO DAILY #90 tabs 01/03/22 01/05/22 release Previous Rx's Medication Instructions Recorded amoxicillin 500 mg tablet 2,000 mg PO ONCE #4 tab-caps 09/17/20 apixaban 5 mg tablet (Eliquis) 5 mg PO BID #180 tabs 09/10/21 atorvastatin 40 mg tablet 40 mg PO QHS #90 tabs 09/10/21 metaxalone 800 mg tablet (Skelaxin) 800 mg PO QID PRN muscle pain #90 09/10/21 tab-caps pregabalin 100 mg capsule 100 mg PO BID #60 caps 10/07/21 betamethasone dipropionate 0.05 % 1 applic topical BID PRN skin 11/25/21 topical cream irritation #45 grams hydrocodone 10 mg-acetaminophen 1 tab PO Q6H PRN pain #120 tabs 11/26/21 325 mg tablet losartan 25 mg tablet 25 mg PO DAILY #90 tabs 12/30/21 pantoprazole 40 mg tablet,delayed 40 mg PO DAILY #90 tabs 01/03/22 release Allergies Allergy/AdvReac Type Severity Reaction Status Date / Time celecoxib [From Celebrex] Allergy Severe hives Verified 01/05/22 13:59 diclofenac sodium AdvReac Intermediate DIARRHEA Verified 01/05/22 13:59 [From Arthrotec 50] misoprostol AdvReac Intermediate DIARRHEA Verified 01/05/22 13:59 [From Arthrotec 50] oxycodone HCl [From Percocet] AdvReac Unknown NAUSEA, Verified 01/05/22 13:59 DIZZINESS General CELY: 3 Review of Systems Constitutional Constitutional: Denies fever(s) Cardiovascular Cardiovascular: Denies chest pain and Denies dyspnea Respiratory Respiratory: Denies dyspnea Musculoskeletal Musculoskeletal: Denies deformity, Reports arthralgias, Denies numbness, Reports stiffness and Denies tingling Integumentary/Breasts Skin/Breast: Denies erythema Neurologic Neurologic: Denies numbness and Denies tingling PFSH All Active Problems Arthralgia of knee, right (Acute) Hordeolum (Acute) Cardiomyopathy (Acute) Hypertension (Chronic) Primary osteoarthritis, right shoulder (Acute) Rotator cuff arthropathy of right shoulder (Acute) Internal derangement of right knee (Acute) Degenerative lumbar spinal stenosis (Acute) Lumbar spondylosis (Acute) Patellar instability of right knee (Acute) Right shoulder pain (Acute) Unstable right knee (Acute) 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 Monoclonal gammopathy (Acute) Lung nodule seen on imaging study (Acute) 06/12/20 FL-6.9mm non calcified RLL, 4mm RLL f/u pulmonology [place] Angina pectoris (Chronic) 02/2020- SPE[facility] ([place])- results equivocal ST or T wave abnormalities suggestive of ischemia HTN (hypertension) (Chronic) TIA (transient ischemic attack) (Acute) 01/2020 History of smoking 30 or more pack years (Acute) History of pulmonary embolism (Acute) 01/2020 PAT (paroxysmal atrial tachycardia) (Acute) GERD (gastroesophageal reflux disease) (Chronic) Neck pain (Acute 03/02/06) per xray-+C-spine DJD Spinal stenosis of lumbar region without neurogenic claudication (Acute 09/28/17) Hyperlipidemia (Acute 12/03/13) Low back pain (Acute) MRI-spinal stenosis; Left sided muscle spasm Lumbosacral radiculopathy at L5 (Acute 09/28/17) Osteoarthritis (Acute) right hip; right hip replacement 2001 Chronic pain syndrome (Acute 10/21/16) contract signed 2019 Medical History Adopted Decreased cardiac output Deep vein thrombosis (10/16/15) History of pulmonary embolism 01/2020 echo 02/2020- EF 45-50% History of tobacco use Malignant neoplasm of skin Basal cell-nose; [facility] [place] MOH's surgery Monoclonal gammopathy present on serum protein electrophoresis (11/21/17) Rotator cuff syndrome left Surgical History Appendectomy Biopsy of breast (~2000) [facility] [place]; NEG Excision, Skin Mass 08/15; PRE CANCER GROWTH ON LEG FINGER RESECTION 04/2014; LEFT HAND History of surgical removal of lesion Meniscectomy 2006 Rotator Cuff Repair LEFT AND RIGHT Status post tonsillectomy and adenoidectomy Tonsillectomy and adenoidectomy Total replacement of hip (~2001) 2001-RIGHT; 2002-LEFT; Social History Smoking/Tobacco Use Status: Former Tobacco Use Quit Date: 04/03/01 Tobacco: How many years used: 40 Second Hand Exposure: Yes Smoking risk assessment performed?: Yes Alcohol Intake: current Alcohol Intake frequency: holidays/special occasions only Alcohol type: wine Drug use: Never Substance use type: does not use Caregiver/Support person: No Household members: spouse Housing: house Communication Needs: None Do you need help understanding health information?: Never Pets and animals: Yes Pets and animals: cat(s), dog(s) and horse(s) Current gender identity: female What is your relationship status?: How often do you talk on the phone with friends or family?: twice per week How often do you get together with friends or relatives?: three or more times per week How often do you attend congregation or yarsanism services?: decline to answer Do you belong to any clubs or organized social groups?: yes Panel score (0-1 are the most socially isolated patients): 3 What type of physical activity do you participate in: bicycling, swimming and other Details: gym Duration: 45-60 minutes/day Frequency: 1-2 times per week Yani/Faith: No preference Special yani needs: No Seatbelt use: always Drive intox or ride w/intox yard driver: No Do you feel safe at home: Yes Do you feel safe in your relationship?: Yes Exam Const General: cooperative, healthy appearing, comfortable and no acute distress Orientation: alert and awake [facility] Head: normal to inspection, normocephalic and atraumatic Eyes Conjunctivae: conjunctivae normal Neck Neck: normal visual inspection, trachea midline and supple Resp Effort & Inspection: normal respiratory effort and able to speak in complete sentences Cardio Rate: regular rate Rhythm: regular rhythm Skin General skin exam: no rashes or lesions noted Neuro General: patient alert, patient awake, patient oriented x3, moves all extremities and no focal motor deficits Cognition: normal cognition Gait: antalgic and gait assisted Method: other (Cane) Sensory Exam: no sensory deficits noted Extrem Other: Right lower extremity, hip unremarkable, knee with full range of motion, stable, diffuse tenderness worse across the anterior aspect with mild swelling. There is no erythema or warmth. No pain, erythema, warmth. Negative Homans' sign. Normal pedal pulse Psych Appearance: grossly normal Mental Status: mental status grossly normal
== END 2022-01-05 14:20 | disposition home or self-care (01) ==
PROVIDERS: Emergency Provider Physician Assistant; PCP Nurse Practitioner
DX: G89.29 Other chronic pain (principal); M25.561 Pain in right knee; Z86.711 Personal history of pulmonary embolism; Z87.891 Personal history of nicotine dependence; Z79.01 Long term (current) use of anticoagulants
CPT/HCPCS: 99281

== ENCOUNTER → 2022-01-10 07:52 | Outpatient (BNVA) | payer OTHER, SELFPAY | PROVIDERS: PCP Nurse Practitioner; Referring Provider Nurse Practitioner; Visit Provider Student in an Organized Health Care Education/Training Program | DX: M25.361 Other instability, right knee (principal); X58.XXXA Exposure to other specified factors, initial encounter; S83.241A Other tear of medial meniscus, current injury, right knee, initial encounter | CPT/HCPCS: 20610; J1040 ==

== ENCOUNTER → 2022-11-02 13:49 | Outpatient (BNVA) | payer MEDICARE, SELFPAY | PROVIDERS: PCP Nurse Practitioner Family; Referring Provider Nurse Practitioner Family; Visit Provider Student in an Organized Health Care Education/Training Program | DX: M19.011 Primary osteoarthritis, right shoulder (principal) | CPT/HCPCS: 20610; 99213; J1040 ==

== ENCOUNTER → 2022-11-30 14:24 | Outpatient (BNVA) | payer MEDICARE, SELFPAY | PROVIDERS: PCP Nurse Practitioner Family; Referring Provider Nurse Practitioner Family; Visit Provider Student in an Organized Health Care Education/Training Program | DX: M19.011 Primary osteoarthritis, right shoulder (principal) | CPT/HCPCS: 99213 ==

== ENCOUNTER 2023-01-19 02:29 | Outpatient (CLI) | payer MEDICARE, SELFPAY ==
[2023-01-19] MEDS: Omnipaque 300 MG/ML 10 ML BTL IJ (15:25)
[2023-01-19] MEDS: Bupivacaine 0.5% Pres-Free 10 ML VIAL IJ (15:25)
[2023-01-19] MEDS: methylPREDNISolone ACETATE 40 MG/ML VIAL IJ (15:26)
[2023-01-19] MEDS: Normal Saline - Diluent 50 ML VIAL IJ (15:26)
== END 2023-01-19 02:49 ==
LOC: DI 02:29
PROVIDERS: PCP Nurse Practitioner Family; Visit Provider Student in an Organized Health Care Education/Training Program
DX: M25.511 Pain in right shoulder (principal)
CPT/HCPCS: 76000; J1030